=== PATIENT | female | born 1960 | race Caucasian/White ===

== ENCOUNTER 2017-06-13 22:49 | Inpatient (IN) | payer MEDICARE, MEDICAID ==
[2017-06-13 23:43] LABS: #Basophils 0.1 thou/uL (0.0-0.2); #Eosinphils 0.3 thou/uL (0.0-0.7); #Lymphocytes 3.2 thou/uL (1.20-3.40); #Monocytes 0.5 thou/uL (0.11-0.59); #Neutrophils 5.6 thou/uL (1.40-6.50); %Basophils 0.7 % (0.0-1.0); %Eosinophils 3.6 % (0.0-10.0); %Lymphocytes 33.2 % (21.0-51.0); %Monocytes 4.8 % (0.0-10.0); Hematocrit 43.8 % (36.0-47.0); Mean Platelet Volume 6.9 fL (7.4-10.4); Red Blood Cell (RBC) Count 4.43 mill/uL (4.20-5.40); White Blood Cell (WBC) Count 9.7 thou/uL (4.8-10.8)
[2017-06-13 23:44] LABS: Bilirubin Negative (Negative); Blood, Urine Negative (Negative); Glucose, Urine (Dipstick) Negative (Negative); Ketone, Urine Negative (Negative); Nitrite Positive (Negative); Protein, Urine (Dipstick) Negative (Neg-Trace)
[2017-06-13 23:47] LABS: Bacteria/HPF 2+ HPF (None Seen); Hyaline Casts/LPF 0-3 HYALINE CAST LPF (0-3 Hyaline); RBC/HPF 0-3 HPF (0-3); Squamous Epithelial 0-3 HPF (0-3)
[2017-06-13 23:54] LABS: Amphetamine Not Detected (NotDetected); Methadone Not Detected (NotDetected); Methamphetamine Not Detected (NotDetected)
[2017-06-13 23:57] LABS: PTT 35.2 SEC (22.9-36.1); Prothrombin Time 13.2 SEC (12.0-14.7)
[2017-06-14 00:06] LABS: ALT (SGPT) 19 U/L (8-55); AST (SGOT) 29 U/L (5-34); Alkaline Phosphatase 86 U/L (40-150); Anion Gap 16 mmol/L (10-20); BUN (Urea Nitrogen) 7 mg/dL (9.8-20.1); Bilirubin, Total 0.8 mg/dL (0.2-1.2); Calc. Creatinine Clearance 0 mL/min (70-130); Calcium 9.1 mg/dL (7.8-10.44); Carbon Dioxide 22 mmol/L (22-29); Chloride 90 mmol/L (98-107); Estimated GFR-MDRD Greater than 90; Globulin 3.6 g/dL (2.4-3.5); Lipase 54 U/L (8-78); Protein, Total 7.5 g/dL (6.0-8.3)
[2017-06-14 01:13] LABS: Troponin I Less than 0.010 ng/mL (< 0.028)
[2017-06-14] MEDS ORDERED: Ondansetron HCl/PF 4 MG/2 ML Vial IVP PRN (01:57)
[2017-06-14] MEDS ORDERED: Acetaminophen 325 MG TAB PO PRN (01:57)
[2017-06-14] MEDS ORDERED: Sodium Chloride 0.9% 1,000 ML IV SCH ×2 (01:57→02:17)
[2017-06-14] MEDS ORDERED: Ondansetron ODT 4 MG TAB SL PRN (01:57)
[2017-06-14] MEDS ORDERED: Lorazepam 2 MG/ML VIAL SLOW IVP PRN (02:17)
[2017-06-14 02:23] VITALS: BMI 30.7
[2017-06-14] MEDS ORDERED: cefTRIAXone\\ROCEPHIN 1 GM, Syringe 0.4 ML in Sterile Water 9.6 ML SLOW IVP SCH (03:00)
[2017-06-14] MEDS: Sodium Chloride 0.9% 1,000 ML IV SCH ×3 (04:03→23:52)
[2017-06-14 04:23] LABS: Sodium, Urine 79 mmol/L (Not Available)
[2017-06-14 05:01] LABS: #Basophils 0.1 thou/uL (0.0-0.2); #Eosinphils 0.3 thou/uL (0.0-0.7); #Lymphocytes 3.2 thou/uL (1.20-3.40); #Monocytes 0.4 thou/uL (0.11-0.59); #Neutrophils 3.8 thou/uL (1.40-6.50); %Basophils 0.9 % (0.0-1.0); %Eosinophils 4.1 % (0.0-10.0); %Lymphocytes 41.4 % (21.0-51.0); %Monocytes 5.4 % (0.0-10.0); Hematocrit 40.9 % (36.0-47.0); Mean Platelet Volume 6.2 fL (7.4-10.4); Red Blood Cell (RBC) Count 4.14 mill/uL (4.20-5.40); White Blood Cell (WBC) Count 7.8 thou/uL (4.8-10.8)
[2017-06-14 05:12] LABS: Osmolality, Urine 324 mOsm/kg (300-900)
[2017-06-14 05:27] LABS: Troponin I Less than 0.010 ng/mL (< 0.028)
[2017-06-14 05:30] LABS: Anion Gap 11 mmol/L (10-20); BUN (Urea Nitrogen) 7 mg/dL (9.8-20.1); Calc. Creatinine Clearance 180 mL/min (70-130); Calcium 8.8 mg/dL (7.8-10.44); Carbon Dioxide 24 mmol/L (22-29); Chloride 94 mmol/L (98-107); Estimated GFR-MDRD Greater than 90; Magnesium 1.7 mg/dL (1.6-2.6)
[2017-06-14] MEDS ORDERED: Cosyntropin 250 MCG VIAL SLOW IVP SCH (07:00)
--- NOTE | 2017-06-14 07:02 | CT ---
CT HEAD NONCONTRAST: Date: 06/13/17 HISTORY: Fall. Head injury. FINDINGS: There is no evidence of acute intracranial hemorrhage or infarct. The ventricles appear normal in si ze, shape, and position. There is no mass effect or shift of midline structures. Visualized paranasa l sinuses remain well aerated. IMPRESSION: No acute intracranial abnormalities are demonstrated. POS: [facility]
--- NOTE | 2017-06-14 07:03 | CT ---
CT CERVICAL SPINE NONCONTRAST: Date: 06/13/17 HISTORY: Fall. Neck injury. FINDINGS: Vertebral body height and alignment are maintained. Cervicothoracic junction is intact. No acute fra cture or dislocation are apparent. IMPRESSION: No acute osseous abnormalities are demonstrated. POS: [facility]
--- NOTE | 2017-06-14 07:13 | HP-2 ---
CODE STATUS: FULL. PRIMARY CARE PHYSICIAN: [facility] - Dr. Blum ATTENDING: Dr. Deepak George. RESIDENT: Bony Hernandez M.D. HISTORIAN: The senior benefits manager [facility] the [facility] (did not witness event). CHIEF COMPLAINT: Witnessed fall. HISTORY OF PRESENT ILLNESS: Lillian Salazar is a 56-year-old female with past medical history of se izure disorder, moderate IDD, hypertension, hypothyroidism, bipolar 1 with psychosis. History was o btained over the phone with group chief operator who did not witness event. She stated that the patie nt came out of her room and ran towards another employee, before she made it to them she lost consci ousness, fell down and hit her head. She states that the employee did not notice any seizure activi ty and did not notice any bowel or bladder incontinence. The patient states that she does not remem anayeli this episode; however, she is not a great historian. She states only remembering waking up in [facility]. Her only complaint is mild abdominal pain. PAST MEDICAL HISTORY: 1. Hypertension. 2. Hypothyroidism. 3. Insomnia. 4. Anxiety. 5. Anemia. 6. Moderate IDD. 7. Bipolar 1 depression with psychosis. 8. Hepatitis C, successfully treated. PAST SURGICAL HISTORY: Hysterectomy. ALLERGIES: 1. ACETAMINOPHEN. 2. PENICILLIN. MEDICATIONS: 1. Keppra 1000 mg p.o. b.i.d. 2. BuSpar 30 mg p.o. b.i.d. 3. Ambien 10 mg p.o. daily. 4. Geodon 60 mg 2 tabs p.o. b.i.d. 5. Trazodone 100 mg p.o. at bedtime. 6. Synthroid 100 mcg 1 p.o. daily. 7. Flonase 1 spray each nostril daily. 8. Ativan 1 mg daily. 9. MiraLax 17 mg daily. 10. Prazosin 2 mg p.o. at bedtime. 11. Seroquel 100 mg 1 p.o. at bedtime. 12. Trileptal 600 mg b.i.d. 13. Tylenol. 14. Benzocaine. FAMILY HISTORY: Unable to obtain as the patient was not a great historian. REVIEW OF SYSTEMS: Unable to obtain a full review of systems, although patient did express that she did have some abdominal pain. PHYSICAL EXAMINATION: VITAL SIGNS: Blood pressure 144/83, pulse 77, respirations 14, T-max 97.6, pulse ox 98% on room air . Current weight was 87 kilograms. GENERAL: The patient was sonorous during exam, but she was alert and oriented x3. She repeatedly f ell asleep during the exam and really not able to cooperate with questions or physical exam. EYES: Pupils equal, round, reactive to light and accommodation. Conjunctivae within normal limits. ENT: Tympanic membranes pearly [place]field without erythema or bulging. Nasal mucosa and oropharynx withi n normal limits. NECK: Supple, without lymphadenopathy or thyromegaly. CARDIOVASCULAR: Regular rate and rhythm. No murmurs or gallops. Radial pulses and pedal pulses eq ual. RESPIRATORY: Normal effort, no retractions. LUNGS: Clear to auscultation bilaterally. SKIN: Warm and dry without cyanosis or lesions. ABDOMEN: Soft, slight tenderness to palpation over the suprapubic region. Bowel sounds x4. No mas ses or distention. EXTREMITIES: No clubbing, cyanosis or edema. MUSCULOSKELETAL: Unable to perform because the patient was not cooperative. NEURO: Unable to perform because the patient was not cooperative. PSYCH: Unable to perform because the patient was not cooperative. LABORATORY DATA: White blood cell count 9.7, hemoglobin 15.5, hematocrit 43.8, platelets 196. Sodi um 124, potassium 3.8, chloride 90, bicarbonate 22, BUN 7, creatinine 0.67, glucose 97, calcium 91, total protein 7.5, albumin 3.6, total bilirubin 0.8, AST 29, ALT 21, alkaline phosphatase 86. Prola ctin 43, PT 3.2, PTT 35.2, INR 1.0. UA was positive for trace leukocytes, nitrites, 0-3 red blood c ells, 4-6 white blood cells and 2+ bacteria. UDS was positive for benzos. EKG showed first degree AV block. ASSESSMENT AND PLAN: Lillian Salazar is a 56-year-old female who presents status post a witnessed f all. 1. Syncopal episode versus seizure. Admit to tele. Prolactin was elevated, but no seizure activit y seen by witness. EKG showed first degree AV block. P.r.n. Ativan for seizure. Start home Keppr a, q.4 hour neuro checks, trend troponins, check UDS, TSH, blood cultures. Seizure precautions. 2. Status post fall, see above. 3. Urinary tract infection, abdominal pain. UA had 2+ bacteria, positive white blood cells and nit rites. Ceftriaxone given in the ED, start Macrobid. Check urine culture. 4. Hypertension. P.r.n., hydralazine, start home meds when it is confirmed that the patient can to lerate p.o. 5. Moderate insulin-dependent diabetes, unable to determine if the patient is at baseline mental st atus at this time. 6. Bipolar I, depression with psychosis. Consider restarting all home meds in a.m. once it is conf irmed that she can tolerate p.o. 7. Hyponatremia. Urine studies, continue to monitor. 8. Code status. Full. DISPOSITION/LENGTH OF HOSPITAL STAY: Two to 3 days. Symptomatic medications will be provided. History and physical exam as well as management discussed with Dr. George.
[2017-06-14 07:15] LABS: Troponin I Less than 0.010 ng/mL (< 0.028)
[2017-06-14] MEDS: Nitrofurantoin Monohyd/M-Cryst 100 MG CAP PO SCH ×2 (08:10→21:27)
--- NOTE | 2017-06-14 08:14 | RAD ---
CHEST ONE VIEW: History: 56-year-old female with injury following a fall. FINDINGS: Monitor leads overlie the chest. Heart size is within normal limits. The lungs are clear. IMPRESSION: No acute intrathoracic disease. No evidence for pneumonia. No pneumothorax or pleural effusion. POS: [facility]
--- NOTE | 2017-06-14 08:43 | RAD ---
FRONTAL RADIOGRAPH PELVIS: Date: 06-14-17 Comparison: None. History: Fall, trauma, pain. FINDINGS: There is no widening of the sacroiliac joint to the pubic symphysis. The pelvic ring and femoral hea ds project normally over the respective acetabulum. There is no displaced fracture noted. IMPRESSION: No displaced fracture seen. POS: [facility]
[2017-06-14] MEDS ORDERED: levETIRAcetam In NaCl (Iso-Os) 1,000 MG in Premix Bag 1 BAG IVPB SCH ×2 (09:00)
--- NOTE | 2017-06-14 11:21 | CON ---
DATE OF CONSULTATION: 06/14/2017 HISTORY OF PRESENT ILLNESS: Ms. Salazar is a 56-year-old white female with known history of bipolar disorder and admitted due to fall. Initial evaluation showed no significant fracture with this pat ient. We are now being consulted for her hyponatremia. REVIEW OF SYSTEMS: No chest pain, denies any syncopal episode, no nausea, no vomiting, no diarrhea, no constipation, no abdominal pain, no headache, no sore throat, no fever or chills. Appetite and energy level is fair. Occasional joint pains. No new skin rash, no hematochezia, no melena, no hem atemesis, no gross hematuria, no dysuria, no sore throat, no diplopia. No decreased hearing. No na puma discharge. HOME MEDICATIONS: Include Keppra 1000 mg p.o. b.i.d., BuSpar 30 mg p.o. b.i.d., Ambien 10 mg daily, Geodon 60 mg 2 tabs p.o. b.i.d., trazodone 100 mg at bedtime, Synthroid 100 mcg daily, Flonase p.r. n., Ativan 1 mg daily, prazosin 2 mg at bedtime, Seroquel 100 mg p.o. at bedtime, and Trileptal 600 mg p.o. b.i.d. FAMILY HISTORY: No family history of ESRD. PAST MEDICAL HISTORY: Hypertension, hypothyroidism, insomnia, anxiety, anemia, bipolar disorder wit h depression and psychosis, chronic hepatitis C, treated. PAST SURGICAL HISTORY: 1. Status post hysterectomy. 2. Status post exploratory laparotomy. 3. Status post cholecystectomy. 4. Status post tonsillectomy. 5. Status post back surgery. SOCIAL HISTORY: The patient lives in [place]. She lives with a senior living. She has a total of 5 chi ldren, stills smokes half a pack a day. Alcohol none. Education 8th grade. Sedentary lifestyle. ALLERGIES: PENICILLIN and TYLENOL. TRAUMA: Recently status post fall. IMMUNIZATIONS: Up to date. HOSPITALIZATIONS: Please see past medical history. PHYSICAL EXAMINATION: VITAL SIGNS: Blood pressure is 120/72, heart rate 72, respiratory rate 20, temperature 98.6, pulse oximetry 96%. GENERAL: Noted to be awake, supine, comfortable, not in overt distress. SKIN: Adequate turgor. HEENT: She has pinkish conjunctivae, anicteric sclerae. NECK: No neck mass, no carotid bruits, no JVD. CHEST: No deformities. LUNGS: Clear breath sounds. HEART: Normal sinus rhythm. No murmur, no gallops or rubs. ABDOMEN: Globular, soft, nontender, no masses. EXTREMITIES: No edema, no deformities. NEUROLOGIC: Awake, oriented to 3 spheres. Moving all extremities. No tremors, no asterixis, no at axia. LABORATORY DATA: Laboratories of 06/14/2017, sodium 125, potassium 3.5, chloride 94, carbon dioxide 24, BUN 7, creatinine 0.51, calcium 8.8, magnesium 1.7. On 06/13/2017, TSH 4.9. On 06/13/2017, so dium was 124. On 10/06/2016, sodium was 132. Urinalysis shows specific gravity on 1.011, rbc 0-3, wbc 3-6, no protein. Urine osmolality 324, uri ne sodium 79. ASSESSMENT AND PLAN: Hyponatremia - This is most likely drug-induced from her psychiatric medicatio ns. The hancock here is to place her on a free water restriction - 1 L per day. Sodium chloride 650 mg tablet 1 tab b.i.d. will be started. Also, I agree with empiric normal saline since the possibilit y of a superimposed hypovolemic hyponatremia remains with this patient. I agree with gentle normal saline. No indication for any hypertonic saline since the patient is mentating well. I tried to ch juan c a uric acid with this patient to see if there would be evidence of dilutional process making the uric acid low. Overall, agree with current management. No indication for any hypertonic saline and recheck base me t in a.m.
[2017-06-14 11:28] LABS: Anion Gap 14 mmol/L (10-20); BUN (Urea Nitrogen) 6 mg/dL (9.8-20.1); Calc. Creatinine Clearance 153 mL/min (70-130); Carbon Dioxide 21 mmol/L (22-29); Chloride 96 mmol/L (98-107); Estimated GFR-MDRD Greater than 90
--- NOTE | 2017-06-14 11:58 | PDOC.EVN ---
Attending Addendum - Attending Addendum I personally evaluated the patient and discussed the management with Dr. Hernandez. I agree with the History, Examination, Assessment and Plan documented above with any addition or exceptions noted below. Patient admitted after episode of syncope versus seizure (less likely) and labs showing hyponatremia. He has a low serum osmol and inappropriately concentrated urine and elevated urine sodium. This is likely a result of her psychiatric medications, probably Trileptal. We will check level to ensure not toxic and will fluid restrict for presumed SIADH. She has stim test ordered to evaluate adrenal insufficiency, though labs are not consistent with that diagnosis. Trend levels through the day, and may need to decrease or withold Trileptal if it does not increase appropriately. Renal has seen patient and agrees with our management.
[2017-06-14] MEDS: Nicotine 14 MG PATCH TD SCH (12:21)
[2017-06-14 18:22] LABS: Anion Gap 11 mmol/L (10-20); BUN (Urea Nitrogen) 9 mg/dL (9.8-20.1); Calc. Creatinine Clearance 141 mL/min (70-130); Calcium 9.7 mg/dL (7.8-10.44); Carbon Dioxide 26 mmol/L (22-29); Chloride 98 mmol/L (98-107); Estimated GFR-MDRD Greater than 90
[2017-06-14] MEDS: Mometasone Furoate 120 PUFF 220 MCG INH SCH (19:13)
[2017-06-14] MEDS: Ibuprofen 600 MG TAB PO PRN (19:23)
[2017-06-14] MEDS: Sodium Bicarbonate Tab 325 MG TAB PO SCH (21:24)
[2017-06-14] MEDS: traZODone HCl 50 MG TAB PO SCH (21:25)
[2017-06-14] MEDS: levETIRAcetam 500 MG TAB PO SCH (21:26)
[2017-06-14] MEDS: busPIRone HCl 10 MG TAB PO SCH (21:26)
[2017-06-14] MEDS: OXcarbazepine 300 MG TAB PO SCH (21:27)
[2017-06-14] MEDS: Zolpidem Tartrate 5 MG TAB PO SCH (21:28)
[2017-06-15 05:09] LABS: #Basophils 0.1 thou/uL (0.0-0.2); #Eosinphils 0.3 thou/uL (0.0-0.7); #Lymphocytes 3.3 thou/uL (1.20-3.40); #Monocytes 0.4 thou/uL (0.11-0.59); #Neutrophils 2.9 thou/uL (1.40-6.50); %Eosinophils 4.7 % (0.0-10.0); %Monocytes 6.3 % (0.0-10.0); Hematocrit 42.2 % (36.0-47.0); Mean Platelet Volume 6.7 fL (7.4-10.4); Red Blood Cell (RBC) Count 4.22 mill/uL (4.20-5.40)
[2017-06-15 05:31] LABS: Anion Gap 11 mmol/L (10-20); BUN (Urea Nitrogen) 10 mg/dL (9.8-20.1); Calc. Creatinine Clearance 148 mL/min (70-130); Calcium 9.4 mg/dL (7.8-10.44); Carbon Dioxide 24 mmol/L (22-29); Chloride 99 mmol/L (98-107); Estimated GFR-MDRD Greater than 90
--- NOTE | 2017-06-15 08:26 | PDOC.FM ---
- Subjective Subjective: No acute events overnight. Pt reports she still feels dizzy when she stands up, otherwise no complaints. No events on hrt monitor overnight. - Objective Vital Signs & Weight: Vital Signs (12 hours) Temp Pulse Resp BP BP BP BP 06/15/17 07:59 98.2 F 72 14 06/15/17 07:44 72 151/79 H 06/15/17 07:42 67 165/87 H 06/15/17 07:40 98.2 F 69 16 117/71 143/89 H 06/15/17 04:00 98.0 F 85 20 137/80 06/15/17 00:00 66 148/77 H Pulse Ox 06/15/17 07:59 93 L 06/15/17 07:44 06/15/17 07:42 06/15/17 07:40 93 L 06/15/17 04:00 94 L 06/15/17 00:00 Weight Weight 94.489 kg I&O: 06/14/17 06/15/17 06/16/17 06:59 06:59 06:59 Intake Total 1260 1665 Output Total 1100 Balance 160 1665 Result Diagrams: 06/15/17 04:10 06/15/17 04:10 <Frank Galindo - Last Filed: 06/15/17 08:33> - Objective Vital Signs & Weight: Vital Signs (12 hours) Temp Pulse Resp BP BP BP BP 06/15/17 12:00 98.1 F 68 16 118/74 06/15/17 07:59 98.2 F 72 14 06/15/17 07:44 72 151/79 H 06/15/17 07:42 67 165/87 H 06/15/17 07:40 98.2 F 69 16 117/71 143/89 H 06/15/17 04:00 98.0 F 85 20 137/80 Pulse Ox 06/15/17 12:00 92 L 06/15/17 07:59 93 L 06/15/17 07:44 06/15/17 07:42 06/15/17 07:40 93 L 06/15/17 04:00 94 L Weight Weight 94.489 kg I&O: 06/14/17 06/15/17 06/16/17 06:59 06:59 06:59 Intake Total 1260 1665 Output Total 1100 Balance 160 1665 Result Diagrams: 06/15/17 04:10 06/15/17 04:10 <Deepak George - Last Filed: 06/15/17 15:23> Phys Exam - Physical Examination Constitutional: NAD HEENT: PERRLA, moist MMs, sclera anicteric Neck: no nodes, no JVD Respiratory: no wheezing, no rales, no rhonchi, clear to auscultation bilateral Cardiovascular: RRR, no significant murmur, no rub Gastrointestinal: soft, non-tender, no distention, positive bowel sounds Musculoskeletal: no edema, pulses present Neurological: non-focal, normal sensation, moves all 4 limbs <Frank Galindo - Last Filed: 06/15/17 08:33> Dx/Plan (1) Hyponatremia with decreased serum osmolality Code(s): E87.1 - HYPO-OSMOLALITY AND HYPONATREMIA Status: Acute (2) UTI (urinary tract infection) Status: Acute - Plan Plan: Hyponatremia resolving, continue fluid restiction dc fluids monitor Is/Os pt maynard positive ros however vitals are stable and troponins are negative nephrology consulted appreciate recs oxcarbazepine levels pending orthostatics normal and ACTH stim test normal <Frank Galindo - Last Filed: 06/15/17 08:33> Attending Addendum - Attending Addendum I personally evaluated the patient and discussed the management with Dr. Galindo. I agree with the History, Examination, Assessment and Plan documented above with any addition or exceptions noted below. Patient with improvement in symptoms and Na level with fluid restriction. Her issue is likely being caused by Trileptal, and we will decrease that dose. Continue fluid restriction and will discuss with outpatient Psychiatry about ways to manage her meds. She otherwise feels well. Trileptal level pending. Possible d/c home tomorrow if doing well. <Deepak George - Last Filed: 06/15/17 15:23>
[2017-06-15] MEDS ORDERED: hydrALAZINE 20 MG/ML VIAL SLOW IVP SCH (08:30)
[2017-06-15] MEDS: OXcarbazepine 300 MG TAB PO SCH ×2 (08:42→20:35)
[2017-06-15] MEDS: Levothyroxine Sodium 150 MCG TAB PO SCH (08:42)
[2017-06-15] MEDS: Sodium Bicarbonate Tab 325 MG TAB PO SCH ×2 (08:42→20:34)
[2017-06-15] MEDS: levETIRAcetam 500 MG TAB PO SCH ×2 (08:42→20:34)
[2017-06-15] MEDS: busPIRone HCl 10 MG TAB PO SCH ×2 (08:42→20:35)
[2017-06-15] MEDS: Nitrofurantoin Monohyd/M-Cryst 100 MG CAP PO SCH ×2 (08:42→20:35)
[2017-06-15] MEDS: Lorazepam 1 MG TAB PO SCH (08:42)
[2017-06-15] MEDS: Aspirin 81 mg Enteric Coated Tablet PO SCH (08:42)
[2017-06-15] MEDS ORDERED: Prazosin HCl 1 MG CAP PO SCH (09:00)
--- NOTE | 2017-06-15 10:21 | PRG ---
DATE OF SERVICE: 06/15/2017 SUBJECTIVE: The patient is a 56-year-old white female with psychiatric problems and was seen by the Renal Service for the hyponatremia. At that time I felt that there was a component volume depletion. She was empirically given volume repletion, normal saline. Serum sodium is much improved today. S he voices no new complaints. We also placed her on a free water restriction. The patient denies any chest pain, shortness of breath. She is wanting to go home. PHYSICAL EXAMINATION: VITAL SIGNS: Blood pressure 151/79, heart rate 72, respiratory rate 14, temperature 98.2, pulse oxim etry 93%. GENERAL: Noted to be awake, alert, sitting comfortable, not in distress. SKIN: Adequate turgor. HEENT: She has pinkish conjunctivae, anicteric sclerae. NECK: No neck mass, no carotid bruits, no JVD. CHEST: No deformities. LUNGS: Clear breath sounds. HEART: Normal sinus rhythm. No murmur, no gallops, no rubs. ABDOMEN: Globular, soft, nontender, no masses. EXTREMITIES: No edema, no deformities. LABORATORY: 06/15/2017 - Reviewed. Please note serum sodium is now 130. ASSESSMENT AND PLAN: Hyponatremia - multifactorial. This is probably secondary to her psychiatric d rugs. In addition, a component of volume depletion is probably in the process, improved with gentle volume repletion and free water restriction. Continue current conservative management. There is no indication for any hypertonic saline. Overall, I agree with current management.
[2017-06-15] MEDS: Nicotine 14 MG PATCH TD SCH (13:14)
[2017-06-15] MEDS: Mometasone Furoate 120 PUFF 220 MCG INH SCH (18:14)
[2017-06-15] MEDS: Ibuprofen 600 MG TAB PO PRN (18:26)
[2017-06-15] MEDS: traZODone HCl 50 MG TAB PO SCH (20:34)
[2017-06-15] MEDS: Zolpidem Tartrate 5 MG TAB PO SCH (20:35)
[2017-06-16 06:38] LABS: Anion Gap 12 mmol/L (10-20); BUN (Urea Nitrogen) 13 mg/dL (9.8-20.1); Calc. Creatinine Clearance 152 mL/min (70-130); Carbon Dioxide 26 mmol/L (22-29); Chloride 95 mmol/L (98-107); Estimated GFR-MDRD Greater than 90
[2017-06-16] MEDS ORDERED: Sodium Chloride 0.9% 1,000 ML IV SCH ×2 (06:45→07:00)
[2017-06-16] MEDS: Lorazepam 1 MG TAB PO SCH (07:59)
[2017-06-16] MEDS: Aspirin 81 mg Enteric Coated Tablet PO SCH (07:59)
[2017-06-16] MEDS: busPIRone HCl 10 MG TAB PO SCH ×2 (07:59→20:26)
[2017-06-16] MEDS: Nitrofurantoin Monohyd/M-Cryst 100 MG CAP PO SCH ×2 (07:59→20:26)
[2017-06-16] MEDS: levETIRAcetam 500 MG TAB PO SCH ×2 (07:59→20:24)
[2017-06-16] MEDS: Levothyroxine Sodium 150 MCG TAB PO SCH (07:59)
[2017-06-16] MEDS: OXcarbazepine 300 MG TAB PO SCH ×2 (07:59→20:26)
[2017-06-16] MEDS: Sodium Bicarbonate Tab 325 MG TAB PO SCH (07:59)
--- NOTE | 2017-06-16 08:25 | PDOC.FM ---
- Subjective Subjective: Pt reports dizziness although has been ambulating throughout hospital and outside to smoke without incident. She reports she does not want to go back to her [facility] because she does not get money until Tuesday and because she does not sleep well there, although she reports she has not slept well here either. Otherwise no acute events overnight and only complains of constipation in addition to occasional dizziness. - Objective Vital Signs & Weight: Vital Signs (12 hours) Temp Pulse Resp BP Pulse Ox 06/16/17 07:33 98.3 F 62 17 134/65 91 L 06/16/17 03:38 97.9 F 63 18 123/72 91 L 06/15/17 20:35 98.2 F 65 18 92 L 06/15/17 20:33 98.2 F 65 18 142/69 H 92 L Weight Weight 92.675 kg I&O: 06/15/17 06/16/17 06/17/17 06:59 06:59 06:59 Intake Total 1665 1490 Output Total 870 Balance 1665 620 Result Diagrams: 06/15/17 04:10 06/16/17 06:09 <Frank Galindo - Last Filed: 06/16/17 08:22> - Objective Vital Signs & Weight: Vital Signs (12 hours) Temp Pulse Resp BP Pulse Ox 06/16/17 08:00 98.3 F 62 17 91 L 06/16/17 07:33 98.3 F 62 17 134/65 91 L 06/16/17 03:38 97.9 F 63 18 123/72 91 L Weight Weight 92.675 kg I&O: 06/15/17 06/16/17 06/17/17 06:59 06:59 06:59 Intake Total 1665 1490 Output Total 870 Balance 1665 620 Result Diagrams: 06/15/17 04:10 06/16/17 06:09 <Deepak George - Last Filed: 06/16/17 11:10> Phys Exam - Physical Examination Constitutional: NAD HEENT: PERRLA, moist MMs, sclera anicteric Neck: no nodes, no JVD, supple Respiratory: no wheezing, no rales, no rhonchi, clear to auscultation bilateral Cardiovascular: RRR, no significant murmur, no rub Gastrointestinal: soft, non-tender, no distention, positive bowel sounds Musculoskeletal: no edema, pulses present Neurological: non-focal, normal sensation, moves all 4 limbs <Frank Galindo - Last Filed: 06/16/17 08:22> Dx/Plan (1) Hyponatremia with decreased serum osmolality Code(s): E87.1 - HYPO-OSMOLALITY AND HYPONATREMIA Status: Acute (2) UTI (urinary tract infection) Status: Acute - Plan Plan: Na dropped to 129, we will continue gentle IVF @ 100mls/hr, recheck an afternoon BMP @ 1400 and if showing signs of improvement plan to DC home Continue macrobid for UTI Pts trileptal level is still pending, was recently on 600 BID, continue 300 BID dose for now Hyponatremia likely 2/2 psychiatric mediations and mild hypovolemia, recheck afternoon BMP after gentle IVF hydration with NS CM consult for DC planning colace for constipation <Frank Galindo - Last Filed: 06/16/17 08:22> Attending Addendum - Attending Addendum I personally evaluated the patient and discussed the management with Dr. Galindo. I agree with the History, Examination, Assessment and Plan documented above with any addition or exceptions noted below. Patient with continued hyponatremia, likely mostly due to her therapy noncompliance. She is continuing to go outside and smoke and drink coffee for which we have advised against as it does not fit her free water restrictions. 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 She also may have mild volume depletion component per Renal. Will discuss further plan of action with Dr. Brewer today. Patient is at baseline and symptomatically much improved due to her improved sodium. I would like her levels to stabilize and be >130 prior to discharge, but non compliance is complicating this. She is otherwise stable for discharge. If nephrology recommends no further treatment, patient may be discharged today with extensive counselling on fluid restriction. <Deepak George - Last Filed: 06/16/17 11:10>
[2017-06-16] MEDS: Docusate 100 MG CAP PO SCH ×2 (09:01→20:26)
[2017-06-16] MEDS ORDERED: Sodium Chloride 1 GM TAB PO SCH (11:30)
[2017-06-16] MEDS: Nicotine 14 MG PATCH TD SCH (11:31)
[2017-06-16] MEDS ORDERED: Acetaminophen 325 MG TAB PO SCH (12:15)
[2017-06-16 14:59] LABS: Anion Gap 12 mmol/L (10-20); BUN (Urea Nitrogen) 12 mg/dL (9.8-20.1); Calc. Creatinine Clearance 130 mL/min (70-130); Calcium 8.8 mg/dL (7.8-10.44); Carbon Dioxide 25 mmol/L (22-29); Chloride 95 mmol/L (98-107); Estimated GFR-MDRD 87
[2017-06-16] MEDS: Mometasone Furoate 120 PUFF 220 MCG INH SCH (18:55)
[2017-06-16] MEDS: Sodium Chloride 1 GM TAB PO SCH (20:24)
[2017-06-16] MEDS: Zolpidem Tartrate 5 MG TAB PO SCH (20:25)
[2017-06-16] MEDS: traZODone HCl 50 MG TAB PO SCH (20:26)
[2017-06-17 05:43] LABS: Anion Gap 9 mmol/L (10-20); BUN (Urea Nitrogen) 11 mg/dL (9.8-20.1); Calc. Creatinine Clearance 150 mL/min (70-130); Calcium 8.8 mg/dL (7.8-10.44); Carbon Dioxide 27 mmol/L (22-29); Chloride 99 mmol/L (98-107); Estimated GFR-MDRD Greater than 90
--- NOTE | 2017-06-17 06:47 | PDOC.FM ---
- Subjective Subjective: Complains of abdominal pain but states she thinks she's just hungry. - Objective Vital Signs & Weight: Vital Signs (12 hours) Temp Pulse Resp BP Pulse Ox 06/17/17 04:00 97.9 F 53 L 18 113/53 L 95 06/16/17 19:30 98.4 F 56 L 18 140/77 93 L Weight Weight 93.128 kg I&O: 06/15/17 06/16/17 06/17/17 06:59 06:59 06:59 Intake Total 1665 1490 1420 Output Total 870 1200 Balance 1665 620 220 Result Diagrams: 06/15/17 04:10 06/17/17 04:27 <Connie Hurtado - Last Filed: 06/17/17 11:48> - Objective Vital Signs & Weight: Vital Signs (12 hours) Temp Pulse Resp BP Pulse Ox 06/17/17 12:00 98.6 F 58 L 16 134/69 90 L 06/17/17 08:00 98.2 F 60 20 94 L 06/17/17 07:47 98.2 F 60 20 137/74 94 L 06/17/17 04:00 97.9 F 53 L 18 113/53 L 95 Weight Weight 93.128 kg I&O: 06/16/17 06/17/17 06/18/17 06:59 06:59 06:59 Intake Total 1490 1420 Output Total 870 1200 Balance 620 220 Result Diagrams: 06/15/17 04:10 06/17/17 04:27 <Deepak George - Last Filed: 06/17/17 14:36> Phys Exam - Physical Examination Constitutional: NAD HEENT: PERRLA, moist MMs, sclera anicteric Respiratory: no wheezing, no rales, no rhonchi, clear to auscultation bilateral Cardiovascular: RRR, no significant murmur Gastrointestinal: soft, no distention, positive bowel sounds suprapubic tenderness Musculoskeletal: no edema, pulses present Psychiatric: normal affect, A&O x 3 <Connie Hurtado - Last Filed: 06/17/17 11:48> Dx/Plan - Plan Plan: 56 yo f presents s/p fall, admitted for a syncopal episode, with chronic hyponatremia and a UTI. Syncope, resolved Chronic Hyponatremia, improved to 131 2/2 trileptal most likely NaCl 1g BID PO UTI, uncomplicated Macrobid X7 days Bipolar d/o, controlled trilepta level pending Continue 300mg BID recommend outpatient follow-up and dc of trileptal in outpatient setting because the hyponatremia is likely d/t the trileptal. CM-pt stays at [facility] [place] [facility] and will be discharged there today. <Connie Hurtado - Last Filed: 06/17/17 11:48> Attending Addendum - Attending Addendum I personally evaluated the patient and discussed the management with Dr. Nikki Estrada. I agree with the History, Examination, Assessment and Plan documented above with any addition or exceptions noted below. Patient with mild improvement in sodium level after further fluid restriction and not allowing her to leave room for coffee. I expect that she has been ignoring the fluid restriction orders as evidenced by her multiple cups of coffee from the cafe each day. Dr. Brewer agrees with discharge with Salt tabs over the next few weeks and he will see in clinic. She should also have augmentation of psych meds in outpatient setting as this is contributing to her sodium levels being low. She is feeling well from this standpoint and will be discharged. I do expect patient to continue to have issues with hyponatremia as she is not adhering to multiple conversations about fluid restriction with her. <Deepak George - Last Filed: 06/17/17 14:36>
[2017-06-17] MEDS: levETIRAcetam 500 MG TAB PO SCH (09:05)
[2017-06-17] MEDS: Sodium Chloride 1 GM TAB PO SCH (09:05)
[2017-06-17] MEDS: Docusate 100 MG CAP PO SCH (09:05)
[2017-06-17] MEDS: Nitrofurantoin Monohyd/M-Cryst 100 MG CAP PO SCH (09:05)
[2017-06-17] MEDS: OXcarbazepine 300 MG TAB PO SCH (09:05)
[2017-06-17] MEDS: busPIRone HCl 10 MG TAB PO SCH (09:06)
[2017-06-17] MEDS: Lorazepam 1 MG TAB PO SCH (09:06)
[2017-06-17] MEDS: Levothyroxine Sodium 150 MCG TAB PO SCH (09:06)
[2017-06-17] MEDS: Aspirin 81 mg Enteric Coated Tablet PO SCH (09:06)
[2017-06-17] MEDS: Nicotine 14 MG PATCH TD SCH (11:19)
[2017-06-17 12:03] VITALS: BP 134/69; TEMP 98.6
--- NOTE | 2017-06-20 08:56 | DIS-2 ---
DATE OF ADMISSION: 06/14/2017 DATE OF DISCHARGE: 06/17/2017 ADMITTING RESIDENT: Bony Hernandez MD ADMITTING ATTENDING: Deepak George MD DISCHARGE RESIDENT: Connie Hurtado MD DISCHARGE ATTENDING: Deepak George MD PROCEDURES: 1. Head CT, which showed no acute intracranial abnormalities, no evidence of an acute intracranial hemorrhage or infarct. 2. Cervical spine CT: No acute osseous abnormalities demonstrated. Vertebral body height and alignment maintained. No acute fracture or dislocation apparent. 3. Chest x-ray: No acute intrathoracic disease. No evidence for pneumonia, no pneumothorax or pleural effusion. 4. Pelvic x-ray: No displaced fracture seen. No widening of the sacroiliac joints to the pubic symphysis. CONSULTATIONS: Nephrology, Dr. Yobani Brewer. PRIMARY DIAGNOSES: 1. Syncope, not otherwise specified. 2. Chronic hyponatremia. 3. Urinary tract infection, uncomplicated. SECONDARY DIAGNOSIS: Bipolar disorder. HISTORY OF PRESENT ILLNESS AND HOSPITAL COURSE: Lillian Salazar is a 56-year- old female with past medical history of seizure disorder, hypertension, hypothyroidism, bipolar 1 with psychosis, presented status post fall. Initial history was obtained over the phone with a group home worker. The patient came out of her room ran towards another employee and before she made it to them , fell down and lost consciousness and hit her head. There did not seem to be any seizure activity. They did not notice any bowel or bladder incontinence. The patient does not remember the episode. 1. She was admitted for workup of syncopal episode versus seizure. She was monitored on tele. Prolactin was elevated, but no seizure activity was seen by the witness. The initial EKG did show first-degree AV block which could have contributed to the cause of her fall. Troponins were trended. TSH and blood cultures were drawn. On initial labs, the patient was found to be hyponatremic. The patient was also started on home medication of Keppra and was provided with neuro checks. She had a low serum osmolality and inappropriately concentrated urine with elevated urine sodium, it is likely secondary to her psychiatric medications probably Trileptal. The patient was fluid restricted with presumed SIADH. Patient had a stim test ordered to evaluate for adrenal insufficiency; however, the labs do not suggest that diagnosis. Patient's troponins were negative. The syncopal episode is likely related to her chronic hyponatremia and volume depletion. In addition, during her hospital course, she endorsed some dizziness, but hospital day #2, was able to ambulate without dizziness. The patient was noted to be smoking outside. She was also noted to be drinking coffee, which is not in adherence with her free water restrictions. She was counseled on adhering to a fluid-restricted diet. She did not have any more syncopal episodes during her hospital stay. Her chronic hyponatremia improved to 131 on hospital day #3, and it seemed that the hyponatremia was and is still related to her Trileptal. She was started on sodium chloride 1 gram 2 times by mouth and was cleared for discharge with recommendations of adhering to a fluid-restricted diet. All that being said, it seems that the syncope was related to a combination of things: likely related to volume depletion, chronic hyponatremia, and possibly pt's first degree AV block. And the Trileptal may be the etiology behind her chronic hyponatremia. We recommend that she follow-up in the outpatient setting with psychiatry to discuss a change in medication to mange her bipolar d/o. 2. Urinary tract infection, uncomplicated. The patient was treated with Macrobid for 7-day course. 3. Bipolar disorder was controlled on Trileptal 300 mg b.i.d. She did not have any symptoms of acute artemio or depression; however, the Trileptal may be the etiology of the chronic hyponatremia as well as the volume depletion causing the syncopal episode. The patient was continued on this medication. Recommended close follow up with Psychiatry in the outpatient setting. DISPOSITION: Stable. DISCHARGE INSTRUCTIONS: [facility] It was recommended that she have close followup with her primary care physician and Dr. Brewer, her packing room inspector. It was recommended the patient adhere to a renal diet and heart healthy diet. Activity as tolerated. Recommended follow up with PCP in 3-7 days. BRUCED
--- NOTE | 2017-06-22 18:12 | PQF ---
MEREDITH FISHER BRANDON [id number] [id number] [id number] CLINICAL DOCUMENTATION CLARIFICATION FORM: POST DISCHARGE DATE: 06/22/17 ATTN: JOHNATHAN HARRY Please exercise your independent, professional judgment in responding to the clarification form. Clinical indicators are provided on the bottom of this form for your review Please check appropriate box(s): Please state whether SIADH or hyponatremia [ ] Hyponatremia please specify etiology, if known [ ] Hyponatremia due to SIADH (Syndrome of Inappropriate Secretion of Antidiuretic Hormone) [ ] Other diagnosis [ ] Unable to determine In addition, please specify: Present on Admission (POA): [ ] Yes [ ] No [ ] Unable to determine CLINICAL INDICATORS - SIGNS / SYMPTOMS / LABS Na level <132. (Please cite specific Na level.) Decreased LOC, malaise, BRISENO, Coma / Seizures Dr George notes "presumed SIADH" on H & P addendum. He also notes on attending addendum to PNs "Trilpetal induced SIADH". RISK FACTORS Renal failure Polydipsia Dehydration Lung cancer Diabetes Insipidus TREATMENTS: IV fluids Series of electrolyte labs Fluid restriction Physician Signature/Date ___ Hyponatremia, but I did not subsequently take care of the patient after admission, please route to Dr. George to make sure. [facility]
--- NOTE | 2017-06-28 09:38 | PQF ---
MEREDITH FISHER JASON MD *r* [id number] [facility]-256 [id number] CLINICAL DOCUMENTATION CLARIFICATION FORM: POST DISCHARGE DATE: 06/28/17 ATTN: Dr. Deepak Geroge Please exercise your independent, professional judgment in responding to the clarification form. Clinical indicators are provided on the bottom of this form for your review Please check appropriate box(s): [ ] Hyponatremia please specify etiology, if known [ X ] Hyponatremia due to SIADH (Syndrome of Inappropriate Secretion of Antidiuretic Hormone) [ ] Other diagnosis [ ] Unable to determine In addition, please specify: Present on Admission (POA): [ X ] Yes [ ] No [ ] Unable to determine CLINICAL INDICATORS - SIGNS / SYMPTOMS / LABS "presumed SIADH" on H & P addendum, also notes on attending addendum to PNs "Trilpetal induced SIADH". RISK FACTORS Renal failure Polydipsia Dehydration Lung cancer Diabetes Insipidus TREATMENTS: IV fluids Series of electrolyte labs Fluid restriction (This form is maintained as a part of the permanent medical record) 2014 [employer] All Rights Reserved Racquel [email or web address] [phone] TOYA
--- NOTE | 2017-07-23 14:06 | EKG ---
Test Reason : Blood Pressure : / mmHG Vent. Rate : 081 BPM Atrial Rate : 081 BPM P-R Int : 234 ms QRS Dur : 078 ms QT Int : 372 ms P-R-T Axes : 040 041 058 degrees QTc Int : 432 ms Sinus rhythm with 1st degree A-V block Otherwise normal ECG Confirmed by MEREDITH DOMINGO DO ([id number]), medical editor KATIE CALDERÓN ([id number]) on 07/23/2017 2:05:34 PM Referred By: Confirmed By:MEREDITH DOMINGO DO
== END 2017-06-17 14:50 | disposition home or self-care (01) | DRG 643 ==
LOC: ERS 22:49 → ERHOLD 06-14 00:20 → IMCU/EMU 06-14 02:13 → 2NO 06-14 17:31
PROVIDERS: ADMIT Emergency Medicine; ATTEND Emergency Medicine
DX: E22.2 Syndrome of inappropriate secretion of antidiuretic hormone (principal); G92 Toxic encephalopathy; N39.0 Urinary tract infection, site not specified; D64.9 Anemia, unspecified; I10 Essential (primary) hypertension; R55 Syncope and collapse; G40.909 Epilepsy, unspecified, not intractable, without status epilepticus; E03.9 Hypothyroidism, unspecified; F31.9 Bipolar disorder, unspecified; F29 Unspecified psychosis not due to a substance or known physiological condition; W18.30XA Fall on same level, unspecified, initial encounter; G47.00 Insomnia, unspecified; F41.9 Anxiety disorder, unspecified; Z86.19 Personal history of other infectious and parasitic diseases; Z88.6 Allergy status to analgesic agent; Z88.0 Allergy status to penicillin; F17.210 Nicotine dependence, cigarettes, uncomplicated; T50.995A Adverse effect of other drugs, medicaments and biological substances, initial encounter; K59.00 Constipation, unspecified; Z91.19 Patient's noncompliance with other medical treatment and regimen; F71 Moderate intellectual disabilities
CPT/HCPCS: 36415; 36416; 51701; 70450; 71010; 72125; 72170; 80048; 80053; 80183; 80306; 80400; 81003; 81015; 82553; 83690; 83735; 83930; 83935; 84146; 84300; 84443; 84484; 84550; 85025; 85610; 85730; 87040; 87077; 87086; 87186; 93005; 94664; 96361; 96374; 99406; A4216; A4353; J0696; J0834; J1953

== ENCOUNTER 2017-07-02 22:21 | Emergency (ER) | payer MEDICARE, MEDICAID ==
[2017-07-02 22:45] LABS: #Eosinphils 0.4 thou/uL (0.0-0.7); #Lymphocytes 2.6 thou/uL (1.20-3.40); #Monocytes 0.4 thou/uL (0.11-0.59); #Neutrophils 4.1 thou/uL (1.40-6.50); %Basophils 0.6 % (0.0-1.0); %Eosinophils 4.9 % (0.0-10.0); %Lymphocytes 34.2 % (21.0-51.0); %Monocytes 5.3 % (0.0-10.0); Hematocrit 40.3 % (36.0-47.0); Mean Platelet Volume 6.8 fL (7.4-10.4); Red Blood Cell (RBC) Count 4.08 mill/uL (4.20-5.40); White Blood Cell (WBC) Count 7.5 thou/uL (4.8-10.8)
[2017-07-02 23:07] LABS: Acetaminophen Less than 6.0 mcg/mL (10.0-30.0); Salicylate Less than 8.0 mg/dL (15.0-30.0)
[2017-07-02 23:08] LABS: ALT (SGPT) 23 U/L (8-55); AST (SGOT) 28 U/L (5-34); Alkaline Phosphatase 84 U/L (40-150); Anion Gap 10 mmol/L (10-20); BUN (Urea Nitrogen) 8 mg/dL (9.8-20.1); Bilirubin, Total 0.4 mg/dL (0.2-1.2); Calc. Creatinine Clearance 0 mL/min (70-130); Calcium 9.3 mg/dL (7.8-10.44); Carbon Dioxide 27 mmol/L (22-29); Chloride 95 mmol/L (98-107); Estimated GFR-MDRD Greater than 90; Protein, Total 6.6 g/dL (6.0-8.3)
--- NOTE | 2017-07-02 23:13 | CT ---
CT OF THE BRAIN WITHOUT CONTRAST 07/02/17 INDICATION: Syncope. COMPARISON: Prior exam dated 06/13/17. FINDINGS: The exam is compared to a prior dated 06/13/17. No acute infarct, hemorrhage or hydrocephalus is present. Skull and extracranial soft tissues are wit hin normal limits. IMPRESSION: No acute intracranial abnormality. POS: [facility]
--- NOTE | 2017-07-02 23:37 | RAD ---
AP VIEW OF THE CHEST 07/02/17 INDICATION: Chest pain. IMPRESSION: No acute cardiopulmonary abnormality. The exam is compared to prior dated 06/14/17. The examination w as not appreciably changed from this comparison study. POS: [facility]
[2017-07-03 00:48] LABS: Bilirubin Negative (Negative); Blood, Urine Negative (Negative); Glucose, Urine (Dipstick) Negative (Negative); Ketone, Urine Negative (Negative); Nitrite Positive (Negative); Protein, Urine (Dipstick) Negative (Neg-Trace)
[2017-07-03 00:51] LABS: Bacteria/HPF 2+ HPF (None Seen); Hyaline Casts/LPF 0-3 HYALINE CAST LPF (0-3 Hyaline); RBC/HPF 0-3 HPF (0-3); Squamous Epithelial 0-3 HPF (0-3); WBC/HPF 0-3 HPF (0-3)
[2017-07-03 00:56] LABS: Amphetamine Not Detected (NotDetected); Methadone Not Detected (NotDetected); Methamphetamine Not Detected (NotDetected)
[2017-07-03] MEDS ORDERED: Potassium Chloride 20 MEQ TAB ONE (01:19)
[2017-07-03] MEDS ORDERED: Cephalexin 250 MG CAP ONE (01:19)
--- NOTE | 2017-07-12 13:25 | EKG ---
Test Reason : Blood Pressure : / mmHG Vent. Rate : 088 BPM Atrial Rate : 088 BPM P-R Int : 226 ms QRS Dur : 084 ms QT Int : 374 ms P-R-T Axes : 054 036 058 degrees QTc Int : 452 ms Sinus rhythm with 1st degree A-V block with occasional Premature ventricular complexes Otherwise normal ECG Confirmed by ZAN BARNETT ([id number]), graphic editor KATIE CALDERÓN ([id number]) on 07/12/2017 1:24:36 PM Referred By: Confirmed By:ZAN BARNETT
== END 2017-07-03 01:29 | disposition home or self-care (01) ==
LOC: ERS 22:21
DX: E11.65 Type 2 diabetes mellitus with hyperglycemia (principal); N39.0 Urinary tract infection, site not specified; R55 Syncope and collapse; F31.9 Bipolar disorder, unspecified; F20.9 Schizophrenia, unspecified; G40.909 Epilepsy, unspecified, not intractable, without status epilepticus; I10 Essential (primary) hypertension; E03.9 Hypothyroidism, unspecified; G47.00 Insomnia, unspecified; F41.9 Anxiety disorder, unspecified; F17.210 Nicotine dependence, cigarettes, uncomplicated
CPT/HCPCS: 70450; 71010; 80053; 80306; 80307; 81003; 81015; 85025; 93005

== ENCOUNTER 2017-07-15 23:04 | Emergency (ER) | payer MEDICARE, MEDICAID ==
--- NOTE | 2017-07-15 23:44 | CT ---
CT CERVICAL SPINE NONCONTRAST: 07/15/17 HISTORY: 56-year-old female status post acute cervical trauma from fall. FINDINGS: There are no jumped or perched facets. There is no evidence of acute fracture. The vertebral body h eights are maintained. There is no prevertebral soft tissue swelling. There are mild to moderate dis cogenic degenerative changes at lower levels. There is diffuse osteopenia. IMPRESSION: 1. No evidence of acute fracture or acute traumatic subluxation. 2. Osteopenia. michel [] POS: [facility]
--- NOTE | 2017-07-15 23:45 | CT ---
CT BRAIN NONCONTRAST: 07/15/17 HISTORY: 56-year-old female status post head trauma due to fall, striking back of head. FINDINGS: There is no midline shift or any other mass effect. There is no evidence of acute intracranial hemor rhage, large cortical infarct, obstructive hydrocephalus, or extraaxial fluid collection. The calvar ium is intact. IMPRESSION: No acute intracranial findings. michel [] POS: [facility]
[2017-07-16 00:02] LABS: #Basophils 0.1 thou/uL (0.0-0.2); #Eosinphils 0.5 thou/uL (0.0-0.7); #Lymphocytes 3.1 thou/uL (1.20-3.40); #Monocytes 0.6 thou/uL (0.11-0.59); #Neutrophils 4.7 thou/uL (1.40-6.50); %Basophils 0.6 % (0.0-1.0); %Eosinophils 5.5 % (0.0-10.0); %Lymphocytes 34.6 % (21.0-51.0); %Monocytes 6.5 % (0.0-10.0); Hematocrit 38.9 % (36.0-47.0); Mean Platelet Volume 6.4 fL (7.4-10.4); Red Blood Cell (RBC) Count 3.97 mill/uL (4.20-5.40)
[2017-07-16 00:10] LABS: Prothrombin Time 13.3 SEC (12.0-14.7)
--- NOTE | 2017-07-16 00:20 | RAD ---
RADIOGRAPH CHEST 1 VIEW: HISTORY: A 56-year-old female status post acute chest trauma from fall. FINDINGS: There is no air space density, pulmonary edema, or pneumothorax. The lateral costophrenic angles are sharp. IMPRESSION: No acute pulmonary findings. michel [] POS: [facility]
[2017-07-16 00:23] LABS: Acetaminophen Less than 6.0 mcg/mL (10.0-30.0); Salicylate Less than 8.0 mg/dL (15.0-30.0)
[2017-07-16 00:28] LABS: Troponin I Less than 0.010 ng/mL (< 0.028)
[2017-07-16 00:31] LABS: ALT (SGPT) 19 U/L (8-55); AST (SGOT) 22 U/L (5-34); Alkaline Phosphatase 83 U/L (40-150); Anion Gap 11 mmol/L (10-20); BUN (Urea Nitrogen) 9 mg/dL (9.8-20.1); Bilirubin, Total 0.4 mg/dL (0.2-1.2); Calc. Creatinine Clearance 0 mL/min (70-130); Calcium 9.1 mg/dL (7.8-10.44); Carbon Dioxide 27 mmol/L (22-29); Chloride 93 mmol/L (98-107); Estimated GFR-MDRD Greater than 90; Protein, Total 6.6 g/dL (6.0-8.3)
[2017-07-16 02:13] LABS: Bilirubin Negative (Negative); Blood, Urine Negative (Negative); Glucose, Urine (Dipstick) Negative (Negative); Ketone, Urine Negative (Negative); Nitrite Negative (Negative); Protein, Urine (Dipstick) Negative (Neg-Trace)
[2017-07-16 02:16] LABS: Bacteria/HPF None Seen HPF (None Seen); Hyaline Casts/LPF 0-3 HYALINE CAST LPF (0-3 Hyaline); RBC/HPF 0-3 HPF (0-3); Squamous Epithelial 0-3 HPF (0-3)
[2017-07-16 02:21] LABS: Amphetamine Not Detected (NotDetected); Methadone Not Detected (NotDetected); Methamphetamine Not Detected (NotDetected)
== END 2017-07-16 02:02 | disposition home or self-care (01) ==
LOC: ERS 23:04
DX: R55 Syncope and collapse (principal); D64.9 Anemia, unspecified; E03.9 Hypothyroidism, unspecified; G47.00 Insomnia, unspecified; E11.9 Type 2 diabetes mellitus without complications; F41.9 Anxiety disorder, unspecified; F31.9 Bipolar disorder, unspecified; F17.210 Nicotine dependence, cigarettes, uncomplicated
CPT/HCPCS: 36415; 36416; 51701; 70450; 71010; 72125; 80053; 80306; 80307; 81003; 81015; 82553; 84484; 84703; 85025; 85610; 85730; 93005; 99406; A4353

== ENCOUNTER 2017-07-21 19:08 | Emergency (ER) | payer MEDICARE, MEDICAID ==
[2017-07-21 22:05] LABS: #Eosinphils 0.3 thou/uL (0.0-0.7); #Lymphocytes 3.3 thou/uL (1.20-3.40); #Monocytes 0.5 thou/uL (0.11-0.59); #Neutrophils 3.7 thou/uL (1.40-6.50); %Basophils 0.6 % (0.0-1.0); %Eosinophils 3.4 % (0.0-10.0); %Lymphocytes 42.1 % (21.0-51.0); %Monocytes 6.5 % (0.0-10.0); Hematocrit 40.4 % (36.0-47.0); Mean Platelet Volume 6.3 fL (7.4-10.4); Red Blood Cell (RBC) Count 4.12 mill/uL (4.20-5.40); White Blood Cell (WBC) Count 7.9 thou/uL (4.8-10.8)
[2017-07-21 22:26] LABS: ALT (SGPT) 25 U/L (8-55); AST (SGOT) 31 U/L (5-34); Alkaline Phosphatase 76 U/L (40-150); Anion Gap 10 mmol/L (10-20); BUN (Urea Nitrogen) 5 mg/dL (9.8-20.1); Bilirubin, Total 0.7 mg/dL (0.2-1.2); Calc. Creatinine Clearance 0 mL/min (70-130); Calcium 9.5 mg/dL (7.8-10.44); Carbon Dioxide 26 mmol/L (22-29); Chloride 96 mmol/L (98-107); Estimated GFR-MDRD Greater than 90; Globulin 3.2 g/dL (2.4-3.5); Protein, Total 7.3 g/dL (6.0-8.3)
--- NOTE | 2017-07-22 08:21 | CT ---
PRELIMINARY REPORT/[facility]/EMERGENCY AFTER HOURS PROCEDURE: EXAM: CT Head Without Intravenous Contrast EXAM DATE/TIME: 07/22/2017 1:04 AM CLINICAL HISTORY: 56 years old, female; Signs and symptoms; Other: Seizure TECHNIQUE: Axial computed tomography images of the head/brain without intravenous contrast. COMPARISON: No relevant prior studies available. FINDINGS: Artifacts: Motion artifact limits this study. Brain: No evidence of acute intracranial hemorrhage, extraxial fluid or midline shift. No evidence of acute large vessel infarction. Ventricles: Unremarkable. No ventriculomegaly. Bones/joints: Unremarkable. No acute fracture. Soft tissues: Unremarkable. Sinuses: Unremarkable as visualized. No acute sinusitis. Mastoid air cells: Unremarkable as visualized. No mastoid effusion. IMPRESSION: 1. Motion artifact limits this study. 2. No evidence of acute intracranial hemorrhage, extraxial fluid or midline shift. 3. No evidence of acute large vessel infarction. Thank you for allowing us to participate in the care of your patient. Dictated and Authenticated by: Chaz Bailey MD 07/22/2017 1:28 AM Central Time ([place] & [place]) FINAL REPORT EMERGENCY AFTER HOURS CT OF BRAIN PERFORMED WITHOUT CONTRAST ENHANCEMENT: Date: 07/22/17 HISTORY: Seizures with fall, hitting back of head. COMPARISON: 07/15/17 exam. FINDINGS: Ventricular and cisternal system is mildly prominent. There are no signs of intracerebral hemorrhage or extra-axial fluid collections. Mastoid air cells and visualized sinuses are clear. IMPRESSION: No acute intracranial abnormalities. This report is in agreement with the preliminary report issued by [facility]. POS: [facility]
== END 2017-07-22 01:31 | disposition home or self-care (01) ==
LOC: ERS 19:08
DX: G40.909 Epilepsy, unspecified, not intractable, without status epilepticus (principal); E87.1 Hypo-osmolality and hyponatremia; D64.9 Anemia, unspecified; I10 Essential (primary) hypertension; E03.9 Hypothyroidism, unspecified; E11.9 Type 2 diabetes mellitus without complications; F41.9 Anxiety disorder, unspecified; F31.9 Bipolar disorder, unspecified; F17.210 Nicotine dependence, cigarettes, uncomplicated; Z79.899 Other long term (current) drug therapy; Z79.82 Long term (current) use of aspirin
CPT/HCPCS: 36415; 70450; 80053; 80156; 84146; 85025; 93005; 94760; 96360; 96361; 99406

== ENCOUNTER 2017-07-22 20:21 | Emergency (ER) | payer MEDICARE, MEDICAID ==
[2017-07-22 21:09] LABS: #Basophils 0.1 thou/uL (0.0-0.2); #Eosinphils 0.5 thou/uL (0.0-0.7); #Lymphocytes 3.1 thou/uL (1.20-3.40); #Monocytes 0.5 thou/uL (0.11-0.59); #Neutrophils 3.4 thou/uL (1.40-6.50); %Basophils 0.7 % (0.0-1.0); %Eosinophils 6.4 % (0.0-10.0); %Lymphocytes 41.3 % (21.0-51.0); %Monocytes 6.6 % (0.0-10.0); Hematocrit 38.6 % (36.0-47.0); Mean Platelet Volume 6.7 fL (7.4-10.4); Red Blood Cell (RBC) Count 3.94 mill/uL (4.20-5.40); White Blood Cell (WBC) Count 7.6 thou/uL (4.8-10.8)
[2017-07-22 21:30] LABS: ALT (SGPT) 24 U/L (8-55); AST (SGOT) 32 U/L (5-34); Alkaline Phosphatase 69 U/L (40-150); Anion Gap 13 mmol/L (10-20); BUN (Urea Nitrogen) 6 mg/dL (9.8-20.1); Bilirubin, Total 0.5 mg/dL (0.2-1.2); Calc. Creatinine Clearance 0 mL/min (70-130); Calcium 9.3 mg/dL (7.8-10.44); Carbon Dioxide 24 mmol/L (22-29); Chloride 99 mmol/L (98-107); Estimated GFR-MDRD Greater than 90; Globulin 3.3 g/dL (2.4-3.5); Protein, Total 7.1 g/dL (6.0-8.3)
== END 2017-07-22 22:40 | disposition home or self-care (01) ==
LOC: ERS 20:21
DX: E87.1 Hypo-osmolality and hyponatremia (principal); D64.9 Anemia, unspecified; G40.909 Epilepsy, unspecified, not intractable, without status epilepticus; I10 Essential (primary) hypertension; E03.9 Hypothyroidism, unspecified; E11.9 Type 2 diabetes mellitus without complications; F31.9 Bipolar disorder, unspecified; F41.9 Anxiety disorder, unspecified; F17.210 Nicotine dependence, cigarettes, uncomplicated; Z79.82 Long term (current) use of aspirin; Z79.899 Other long term (current) drug therapy
CPT/HCPCS: 80053; 85025; 99406

== ENCOUNTER 2017-07-28 16:24 | Emergency (ER) | payer MEDICARE, MEDICAID ==
--- NOTE | 2017-07-28 18:55 | RAD ---
PORTABLE CHEST: 07/28/17 HISTORY: Productive cough with fever. COMPARISON: 07/16/17 study. Heart size and mediastinum are within normal limits. The lungs are clear of any infiltrative process. IMPRESSION: No active intrathoracic disease. POS: [facility]
== END 2017-07-28 19:29 | disposition home or self-care (01) ==
LOC: ERS 16:24
DX: J20.9 Acute bronchitis, unspecified (principal); D64.9 Anemia, unspecified; E03.9 Hypothyroidism, unspecified; E11.9 Type 2 diabetes mellitus without complications; I10 Essential (primary) hypertension; G40.909 Epilepsy, unspecified, not intractable, without status epilepticus; J45.909 Unspecified asthma, uncomplicated; F31.9 Bipolar disorder, unspecified; F41.9 Anxiety disorder, unspecified; F20.9 Schizophrenia, unspecified; F17.210 Nicotine dependence, cigarettes, uncomplicated
CPT/HCPCS: 71010; 87804; 94640; 99406; J7620

== ENCOUNTER 2018-03-21 11:22 | Emergency (ER) | payer MEDICARE, MEDICAID ==
[2018-03-21 12:29] LABS: #Eosinphils 0.2 thou/uL (0.0-0.7); #Lymphocytes 2.6 thou/uL (1.20-3.40); #Monocytes 0.3 thou/uL (0.11-0.59); #Neutrophils 3.9 thou/uL (1.40-6.50); %Basophils 0.2 % (0.0-1.0); %Eosinophils 2.8 % (0.0-10.0); %Lymphocytes 36.8 % (21.0-51.0); %Monocytes 4.8 % (0.0-10.0); %Neutrophils 55.4 % (42.0-75.0); Hemoglobin 14.1 g/dL (12.0-16.0); Mean Corpuscular Hemoglobin 33.5 pg (27.0-31.0); Mean Corpuscular Volume 92.9 fL (78.0-98.0); Platelet Count 165 thou/uL (130-400); RBC Distribution Width 11.6 % (11.5-14.5)
[2018-03-21 12:50] LABS: ALT (SGPT) 11 U/L (8-55); AST (SGOT) 18 U/L (5-34); Alkaline Phosphatase 70 U/L (40-150); Anion Gap 13 mmol/L (10-20); BUN (Urea Nitrogen) 7 mg/dL (9.8-20.1); Bilirubin, Total 0.4 mg/dL (0.2-1.2); Calc. Creatinine Clearance 0 mL/min (70-130); Calcium 9.7 mg/dL (7.8-10.44); Carbon Dioxide 25 mmol/L (22-29); Chloride 106 mmol/L (98-107); Estimated GFR-MDRD Greater than 90; Globulin 3.5 g/dL (2.4-3.5); Glucose 107 mg/dL (70-105); Protein, Total 7.5 g/dL (6.0-8.3); Sodium 140 mmol/L (136-145)
[2018-03-21 12:55] LABS: PTT 34.5 SEC (22.9-36.1); Prothrombin Time 13.3 SEC (12.0-14.7)
[2018-03-21 12:57] LABS: Troponin I Less than 0.010 ng/mL (< 0.028)
[2018-03-21 13:03] LABS: D-Dimer Test Less than 0.27 *mcg/mL (0.27-0.43)
--- NOTE | 2018-03-21 13:05 | RAD ---
SINGLE VIEW OF THE CHEST: COMPARISON: 07/28/17. HISTORY: Drowsiness. The patient took too much medication this morning. FINDINGS: Single view of the chest shows a normal sized cardiomediastinal silhouette. There is no evidence of c onsolidation, mass, or pleural effusion. The bones are unremarkable. IMPRESSION: No evidence of acute cardiopulmonary disease. POS: [facility]
[2018-03-21 13:29] LABS: Acetaminophen Less than 6.0 mcg/mL (10.0-30.0); Alcohol Less than 10 mg/dL (Less than 10); Salicylate Less than 8.0 mg/dL (15.0-30.0)
[2018-03-21 14:34] LABS: Bilirubin Negative (Negative); Blood, Urine Small (Negative); Clarity TURBID (Clear); Glucose, Urine (Dipstick) Negative (Negative); Leukocyte Large (Negative); Nitrite Positive (Negative); Protein, Urine (Dipstick) Negative (Neg-Trace); Specific Gravity, Urine 1.008 (1.002-1.036); Urobilinogen 0.2 mg/dL (0.2-1.0); pH, Urine 6.5 (5.0-9.0)
[2018-03-21 14:36] LABS: Bacteria/HPF 1+ HPF (None Seen); Hyaline Casts/LPF 0-3 HYALINE CAST LPF (0-3 Hyaline); Pathc Cast-AUWi Flag 0.29 (0-2.49); Squamous Epithelial 0-3 HPF (0-3)
[2018-03-21 14:43] LABS: Amphetamine Not Detected (NotDetected); Barbiturates Screen Not Detected (NotDetected); Benzodiazepine Screen Detected (NotDetected); Cocaine Metabolite Screen Not Detected (NotDetected); Medtox Control Line Valid? VALID (VALID); Medtox Reader # READER 4; Methadone Not Detected (NotDetected); Methamphetamine Not Detected (NotDetected); Opiate Screen Not Detected (NotDetected); Oxycodone Screen Not Detected (NotDetected); Phencyclidine (PCP) Not Detected (NotDetected); THC/Cannabinoid Screen Not Detected (NotDetected); Tricyclic Screen Not Detected (NotDetected)
== END 2018-03-21 15:22 | disposition home or self-care (01) ==
LOC: ERS 11:22
DX: N39.0 Urinary tract infection, site not specified (principal); E03.9 Hypothyroidism, unspecified; J45.909 Unspecified asthma, uncomplicated; F41.9 Anxiety disorder, unspecified; F31.9 Bipolar disorder, unspecified; F20.9 Schizophrenia, unspecified; F17.210 Nicotine dependence, cigarettes, uncomplicated; G47.00 Insomnia, unspecified; I10 Essential (primary) hypertension
CPT/HCPCS: 71045; 80053; 80306; 80307; 81003; 81015; 82553; 83880; 84484; 85025; 85379; 85610; 85730; 93005

== ENCOUNTER 2018-03-24 14:38 | Emergency (ER) | payer MEDICARE, MEDICAID ==
[2018-03-24 15:24] LABS: Bilirubin Negative (Negative); Blood, Urine Negative (Negative); Clarity CLEAR (Clear); Glucose, Urine (Dipstick) Negative (Negative); Leukocyte Negative (Negative); Nitrite Negative (Negative); Protein, Urine (Dipstick) Negative (Neg-Trace); Specific Gravity, Urine 1.005 (1.002-1.036); Urobilinogen 0.2 mg/dL (0.2-1.0); pH, Urine 6.5 (5.0-9.0)
[2018-03-24 15:33] LABS: #Basophils 0.1 thou/uL (0.0-0.2); #Eosinphils 0.2 thou/uL (0.0-0.7); #Monocytes 0.3 thou/uL (0.11-0.59); #Neutrophils 4.5 thou/uL (1.40-6.50); %Basophils 0.6 % (0.0-1.0); %Eosinophils 2.4 % (0.0-10.0); %Monocytes 3.5 % (0.0-10.0); %Neutrophils 56.5 % (42.0-75.0); Hemoglobin 14.4 g/dL (12.0-16.0); Mean Corpuscular HGB CONC 35.5 g/dL (32.0-36.0); Mean Corpuscular Hemoglobin 32.7 pg (27.0-31.0); Mean Corpuscular Volume 92.1 fL (78.0-98.0); Mean Platelet Volume 6.7 fL (7.4-10.4); Platelet Count 163 thou/uL (130-400); RBC Distribution Width 11.3 % (11.5-14.5); Red Blood Cell (RBC) Count 4.39 mill/uL (4.20-5.40)
[2018-03-24 15:38] LABS: Amphetamine Not Detected (NotDetected); Barbiturates Screen Not Detected (NotDetected); Benzodiazepine Screen Detected (NotDetected); Cocaine Metabolite Screen Not Detected (NotDetected); Medtox Control Line Valid? VALID (VALID); Medtox Reader # READER 1; Methadone Not Detected (NotDetected); Methamphetamine Not Detected (NotDetected); Opiate Screen Not Detected (NotDetected); Oxycodone Screen Not Detected (NotDetected); Phencyclidine (PCP) Not Detected (NotDetected); THC/Cannabinoid Screen Not Detected (NotDetected); Tricyclic Screen Not Detected (NotDetected)
[2018-03-24 15:54] LABS: ALT (SGPT) 9 U/L (8-55); AST (SGOT) 16 U/L (5-34); Alkaline Phosphatase 75 U/L (40-150); Anion Gap 11 mmol/L (10-20); BUN (Urea Nitrogen) 7 mg/dL (9.8-20.1); Bilirubin, Total 0.6 mg/dL (0.2-1.2); Calc. Creatinine Clearance 0 mL/min (70-130); Calcium 9.5 mg/dL (7.8-10.44); Carbon Dioxide 26 mmol/L (22-29); Chloride 104 mmol/L (98-107); Estimated GFR-MDRD 90; Globulin 3.3 g/dL (2.4-3.5); Glucose 102 mg/dL (70-105); Potassium 3.8 mmol/L (3.5-5.1); Protein, Total 7.3 g/dL (6.0-8.3); Sodium 137 mmol/L (136-145)
[2018-03-24 17:18] LABS: CKMB 1.3 ng/mL (0-6.6); Troponin I Less than 0.010 ng/mL (< 0.028)
== END 2018-03-24 17:57 | disposition home or self-care (01) ==
LOC: ERS 14:38
DX: F13.90 Sedative, hypnotic, or anxiolytic use, unspecified, uncomplicated (principal); R47.81 Slurred speech; D64.9 Anemia, unspecified; G40.909 Epilepsy, unspecified, not intractable, without status epilepticus; I10 Essential (primary) hypertension; E03.9 Hypothyroidism, unspecified; G47.00 Insomnia, unspecified; J45.909 Unspecified asthma, uncomplicated; G43.909 Migraine, unspecified, not intractable, without status migrainosus; F41.9 Anxiety disorder, unspecified; F31.9 Bipolar disorder, unspecified; F20.9 Schizophrenia, unspecified; F17.210 Nicotine dependence, cigarettes, uncomplicated
CPT/HCPCS: 36415; 80053; 80306; 81003; 82553; 84484; 85025; 93005

== ENCOUNTER 2018-05-08 11:12 | Outpatient (CLI) | payer MEDICARE, MEDICAID | END 2018-05-08 11:13 | disposition home or self-care (01) | LOC: BICMAMMO 11:12 | PROVIDERS: ATTEND Family Medicine | DX: Z12.31 Encounter for screening mammogram for malignant neoplasm of breast (principal); R92.1 Mammographic calcification found on diagnostic imaging of breast; Z80.3 Family history of malignant neoplasm of breast | CPT/HCPCS: 77063; 77067 ==

== ENCOUNTER 2019-08-12 22:35 | Emergency (ER) | payer MEDICARE, MEDICAID ==
--- NOTE | 2019-08-12 23:04 | RAD ---
Chest AP view INDICATION: Chest pain and cough with nausea and vomiting COMPARISON: Prior exam dated March 21, 2018 FINDINGS: Lungs:Low lung volumes. No consolidation. Cardiac silhouette:The cardiomediastinal silhouette appears within normal limits. Pulmonary vasculature:Normal Pleural spaces:No pleural effusion or pneumothorax is demonstrated. Upper abdomen:No abnormality seen. Osseous structures: No acute osseous abnormality. Additional findings:None. IMPRESSION: No acute cardiopulmonary abnormality.
[2019-08-12 23:19] LABS: #Eosinphils 0.1 thou/uL (0.0-0.7); #Lymphocytes 0.8 thou/uL (1.20-3.40); #Monocytes 0.5 thou/uL (0.11-0.59); #Neutrophils 5.3 thou/uL (1.40-6.50); %Basophils 0.2 % (0.0-1.0); %Lymphocytes 11.5 % (21.0-51.0); %Monocytes 7.9 % (0.0-10.0); %Neutrophils 79.4 % (42.0-75.0); Hemoglobin 12.1 g/dL (12.0-16.0); Mean Corpuscular HGB CONC 34.1 g/dL (32.0-36.0); Mean Corpuscular Hemoglobin 31.8 pg (27.0-31.0); Mean Corpuscular Volume 93.2 fL (78.0-98.0); Mean Platelet Volume 7.6 fL (7.4-10.4); Platelet Count 173 thou/uL (130-400); RBC Distribution Width 11.9 % (11.5-14.5); Red Blood Cell (RBC) Count 3.81 mill/uL (4.20-5.40); White Blood Cell (WBC) Count 6.6 thou/uL (4.8-10.8)
[2019-08-12] MEDS ORDERED: Ketorolac Tromethamine 30 MG/ML VIAL ONE (23:31)
[2019-08-12 23:41] LABS: ALT (SGPT) 11 U/L (8-55); AST (SGOT) 13 U/L (5-34); Alkaline Phosphatase 77 U/L (40-110); Anion Gap 11 mmol/L (10-20); BUN (Urea Nitrogen) 11 mg/dL (9.8-20.1); Bilirubin, Total 0.2 mg/dL (0.2-1.2); Calc. Creatinine Clearance 0 mL/min (70-130); Calcium 9.2 mg/dL (7.8-10.44); Carbon Dioxide 25 mmol/L (22-29); Chloride 103 mmol/L (98-107); Estimated GFR-MDRD 72; Globulin 2.9 g/dL (2.4-3.5); Glucose 109 mg/dL (70-105); Potassium 3.6 mmol/L (3.5-5.1); Protein, Total 6.9 g/dL (6.0-8.3); Sodium 135 mmol/L (136-145)
== END 2019-08-13 00:20 | disposition home or self-care (01) ==
LOC: ERS 22:35
DX: J06.9 Acute upper respiratory infection, unspecified (principal); I25.2 Old myocardial infarction; I10 Essential (primary) hypertension; D64.9 Anemia, unspecified; E03.9 Hypothyroidism, unspecified; G47.00 Insomnia, unspecified; J45.909 Unspecified asthma, uncomplicated; G43.909 Migraine, unspecified, not intractable, without status migrainosus; F41.9 Anxiety disorder, unspecified; F31.9 Bipolar disorder, unspecified; F20.9 Schizophrenia, unspecified; F17.210 Nicotine dependence, cigarettes, uncomplicated
CPT/HCPCS: 71045; 80053; 83880; 84484; 85025; 93005; 96374; J1885

== ENCOUNTER 2019-08-22 20:12 | Emergency (ER) | payer MEDICARE, MEDICAID ==
[2019-08-22 20:55] LABS: Bilirubin Negative (Negative); Blood, Urine Negative (Negative); Clarity Clear (Clear); Glucose, Urine (Dipstick) Normal (Negative); Leukocyte 75 Leu/uL (Negative); Nitrite Negative (Negative); Protein, Urine (Dipstick) Negative (Neg-Trace); RBC/HPF 0-3 HPF (0-3); Urobilinogen Normal mg/dL (Less than 2)
[2019-08-22 20:55] LABS: #Basophils 0.1 thou/uL (0.0-0.2); #Eosinphils 0.2 thou/uL (0.0-0.7); #Lymphocytes 4.1 thou/uL (1.20-3.40); #Monocytes 0.6 thou/uL (0.11-0.59); #Neutrophils 5.2 thou/uL (1.40-6.50); %Basophils 0.8 % (0.0-1.0); %Lymphocytes 40.5 % (21.0-51.0); %Monocytes 5.5 % (0.0-10.0); %Neutrophils 51.1 % (42.0-75.0); Hemoglobin 12.5 g/dL (12.0-16.0); Mean Corpuscular HGB CONC 33.8 g/dL (32.0-36.0); Mean Corpuscular Hemoglobin 31.4 pg (27.0-31.0); Mean Platelet Volume 7.1 fL (7.4-10.4); Platelet Count 218 thou/uL (130-400); RBC Distribution Width 11.9 % (11.5-14.5); Red Blood Cell (RBC) Count 3.98 mill/uL (4.20-5.40); White Blood Cell (WBC) Count 10.1 thou/uL (4.8-10.8)
[2019-08-22 21:03] LABS: Amphetamine Not Detected (NotDetected); Barbiturates Screen Not Detected (NotDetected); Benzodiazepine Screen Not Detected (NotDetected); Cocaine Metabolite Screen Not Detected (NotDetected); Medtox Control Line Valid? VALID (VALID); Medtox Reader # READER 1; Methadone Not Detected (NotDetected); Methamphetamine Not Detected (NotDetected); Opiate Screen Not Detected (NotDetected); Oxycodone Screen Not Detected (NotDetected); Phencyclidine (PCP) Not Detected (NotDetected); THC/Cannabinoid Screen Not Detected (NotDetected); Tricyclic Screen Not Detected (NotDetected)
[2019-08-22 21:07] LABS: Bacteria/HPF Rare-Few HPF (None Seen)
--- NOTE | 2019-08-22 21:14 | RAD ---
Exam:3 views right shoulder HISTORY: Fall. Pain. COMPARISON: None FINDINGS: Glenohumeral joint space is preserved. No fracture. No dislocation. Visualized right ribs a re unremarkable. IMPRESSION: No fracture or dislocation.
--- NOTE | 2019-08-22 21:14 | RAD ---
EXAM: Chest PA and lateral: HISTORY: Cough COMPARISON: 08/12/2019 FINDINGS: Heart: Normal cardiac silhouette Aorta: Atherosclerosis of the aortic knob Pulmonary vessels: Normal Costophrenic angles: Costophrenic angles are clear. Lungs: No consolidation or masses. Inflation. Chronic changes. Pneumothorax: No pneumothorax Osseous structures: No osseous abnormalities IMPRESSION: No acute cardiopulmonary process. Atherosclerosis.
[2019-08-22 21:16] LABS: ALT (SGPT) 14 U/L (8-55); AST (SGOT) 13 U/L (5-34); Albumin 3.9 g/dL (3.5-5.0); Alkaline Phosphatase 68 U/L (40-110); Anion Gap 9 mmol/L (10-20); BUN (Urea Nitrogen) 9 mg/dL (9.8-20.1); Bilirubin, Total 0.2 mg/dL (0.2-1.2); Calc. Creatinine Clearance 0 mL/min (70-130); Calcium 9.1 mg/dL (7.8-10.44); Carbon Dioxide 27 mmol/L (22-29); Chloride 102 mmol/L (98-107); Estimated GFR-MDRD 79; Globulin 2.9 g/dL (2.4-3.5); Glucose 97 mg/dL (70-105); Potassium 3.3 mmol/L (3.5-5.1); Protein, Total 6.8 g/dL (6.0-8.3); Sodium 135 mmol/L (136-145)
[2019-08-22] MEDS ORDERED: Ibuprofen 800 MG TAB ONE (21:35)
[2019-08-22] MEDS ORDERED: levETIRAcetam 1000 MG/100 ML PREMIX BAG ONE (21:35)
[2019-08-22] MEDS ORDERED: levETIRAcetam 500 MG TAB PO SCH (22:00)
== END 2019-08-22 22:12 | disposition home or self-care (01) ==
LOC: ERS 20:12
DX: G40.909 Epilepsy, unspecified, not intractable, without status epilepticus (principal); E87.6 Hypokalemia; J45.909 Unspecified asthma, uncomplicated; G43.909 Migraine, unspecified, not intractable, without status migrainosus; I10 Essential (primary) hypertension; I25.2 Old myocardial infarction; G47.00 Insomnia, unspecified; F41.9 Anxiety disorder, unspecified; F31.9 Bipolar disorder, unspecified; F20.9 Schizophrenia, unspecified; F17.210 Nicotine dependence, cigarettes, uncomplicated; D64.9 Anemia, unspecified; E03.9 Hypothyroidism, unspecified; Z79.51 Long term (current) use of inhaled steroids; Z79.899 Other long term (current) drug therapy
CPT/HCPCS: 36415; 71046; 80053; 80306; 81003; 81015; 85025; 93005; J1953

== ENCOUNTER 2019-08-23 13:00 | Observation (INO) | payer MEDICARE, MEDICAID ==
[2019-08-23 14:00] LABS: #Basophils 0.1 thou/uL (0.0-0.2); #Eosinphils 0.2 thou/uL (0.0-0.7); #Lymphocytes 2.4 thou/uL (1.20-3.40); #Monocytes 0.4 thou/uL (0.11-0.59); #Neutrophils 5.5 thou/uL (1.40-6.50); %Basophils 0.9 % (0.0-1.0); %Eosinophils 2.2 % (0.0-10.0); %Lymphocytes 27.9 % (21.0-51.0); %Monocytes 4.8 % (0.0-10.0); %Neutrophils 64.1 % (42.0-75.0); Mean Corpuscular HGB CONC 33.9 g/dL (32.0-36.0); Mean Corpuscular Hemoglobin 31.8 pg (27.0-31.0); Mean Corpuscular Volume 93.5 fL (78.0-98.0); Platelet Count 224 thou/uL (130-400); RBC Distribution Width 11.9 % (11.5-14.5); White Blood Cell (WBC) Count 8.6 thou/uL (4.8-10.8)
[2019-08-23 14:50] LABS: ALT (SGPT) 12 U/L (8-55); AST (SGOT) 14 U/L (5-34); Albumin 3.9 g/dL (3.5-5.0); Alkaline Phosphatase 65 U/L (40-110); Anion Gap 13 mmol/L (10-20); BUN (Urea Nitrogen) 8 mg/dL (9.8-20.1); Bilirubin, Total 0.4 mg/dL (0.2-1.2); Calc. Creatinine Clearance 0 mL/min (70-130); Carbon Dioxide 24 mmol/L (22-29); Chloride 105 mmol/L (98-107); Estimated GFR-MDRD 87; Glucose 86 mg/dL (70-105); Potassium 3.6 mmol/L (3.5-5.1); Protein, Total 6.9 g/dL (6.0-8.3); Sodium 138 mmol/L (136-145)
[2019-08-23 16:54] LABS: Bilirubin Negative (Negative); Blood, Urine Negative (Negative); Clarity Clear (Clear); Glucose, Urine (Dipstick) Normal (Negative); Leukocyte Negative Leu/uL (Negative); Nitrite Negative (Negative); Protein, Urine (Dipstick) Negative (Neg-Trace); Urobilinogen Normal mg/dL (Less than 2)
[2019-08-23] MEDS ORDERED: levETIRAcetam 1000 MG/100 ML PREMIX BAG ONE (17:15)
[2019-08-23] MEDS ORDERED: levETIRAcetam In NaCl (Iso-Os) 1,000 MG in Premix Bag 1 BAG IVPB SCH (17:15)
[2019-08-23] MEDS ORDERED: Ondansetron PF 4 MG/2 ML Vial IVP PRN (19:39)
[2019-08-23] MEDS ORDERED: Guaifenesin DM 100-10/5 ML UDCUP PO PRN (19:39)
[2019-08-23] MEDS ORDERED: Senokot S 8.6-50 MG TAB PO PRN (19:39)
[2019-08-23] MEDS ORDERED: Ondansetron ODT 4 MG TAB PO PRN (19:39)
[2019-08-23] MEDS ORDERED: Ibuprofen 800 MG TAB PO PRN (19:39)
--- NOTE | 2019-08-23 20:07 | HP ---
PRIMARY CARE PHYSICIAN: Valeriy Isbell. CHIEF COMPLAINT: Seizure. HISTORY OF PRESENT ILLNESS: This is a 58-year-old white female who has known history of seizure disorder, but no seizures for over 2 years, also with a history of bipolar and depression and moderate intellectual disability. The patient is in a detention, accompanied here by one of the attendants there. She has had a cough for about a week with congestion, diagnosed with bronchitis by her primary care doctor and given a prescription for antibiotics, a Z-Christophe along with a prednisone taper. She had persistence of her cough and went back into the doctor yesterday. At that time, she had a steroid injection and then was prescribed an antibiotic that she has not filled yet. She was in her normal state of health except for the cough until in the evening yesterday and she was sitting in a chair and slumped over, then slid out of the chair and had a generalized tonic-clonic seizure witnessed by staff, lasts for 5 minutes and then she slowly came back to normal mental status. She was fine again this morning, but later toward the afternoon she had another 5-minute seizure and after that, she has had at least 10 episodes of shorter seizure-type activity, but for much shorter period of time, she has been a little confused afterward, she was brought into the emergency room. Here, she was loaded with Keppra and then when they were sending her back to her detention. She had another 2 episodes of seizures, and so she is being put in observation in the hospital. Dr. King was notified from the emergency room. He had recommended increasing her Keppra, after checking a level, increasing her Keppra to 2000 mg at night and 1500 in the morning. The patient is mostly back to her baseline, just a mild amount of confusion now. Most of the history was taken from the patient; however, she gets some of the information wrong and her attendant at the bedside was able to clarify how long these had been going on for and what exactly happened. PAST MEDICAL HISTORY: The patient is not able to give much about her medical history and most of it is taken from the chart. 1. Bipolar. 2. Hypothyroidism. 3. Depression. 4. Hypertension. 5. Seizure disorder. 6. Anxiety. 7. Anemia. 8. Gastroesophageal reflux disease. 9. Moderate intellectual disability. 10. Hepatitis C. 11. Questionable history of heart disease. PAST SURGICAL HISTORY: 1. Hysterectomy. 2. Cholecystectomy. 3. Ankle surgery. 4. Back surgery. 5. Appendectomy. 6. Tonsillectomy. SOCIAL HISTORY: The patient currently smokes cigarettes about one pack per day. No alcohol. No current illicit drug use. She is a former drug user. Abused cocaine, crack, crystal meth and pot in the past per her computer chart. She lives in a long-term care facility- detention. FAMILY HISTORY: Unknown. ALLERGIES: 1. BENZODIAZEPINES. 2. ACETAMINOPHEN. 3. PENICILLINS. HOME MEDICATIONS: 1. BuSpar 30 mg twice a day. 2. Geodon 160 mg at night. 3. Amitiza 24 mcg twice a day. 4. Sodium chloride 1 g twice a day. 5. Aspirin 81 mg daily. 6. Levothyroxine 100 mcg daily. 7. Benztropine 1 mg at night. 8. Levetiracetam 1500 mg twice a day. 9. Melatonin 10 mg at night. 10. Topamax 50 mg twice a day. 11. Fluticasone spray 50 mcg daily, two sprays in each nostril daily. 12. Ibuprofen 800 mg every 8 hours as needed for pain. 13. Ventolin inhaler as needed. 14. MiraLAX as needed for constipation. 15. Tramadol 50 mg every 8 hours as needed for pain. REVIEW OF SYSTEMS: CONSTITUTIONAL: She had some low-grade fevers initially with bronchitis, this resolved. No chills. EYES: No double vision or blurred vision. ENT: She is not really having nasal congestion or drainage. She did have a little bit of bleeding from her nose a few days ago. No sore throat. CARDIOVASCULAR: No chest pain. No palpitations or racing heart. PULMONARY: She had coughing as per HPI. No shortness of breath currently, but she does have a little chest tightness during the coughing fits and a little bit of substernal discomfort with coughing fits only. She also has had some wheezing on and off. GASTROINTESTINAL: No abdominal pain. No nausea or vomiting. No diarrhea or constipation. GENITOURINARY: No dysuria or hematuria. MUSCULOSKELETAL: No specific muscle aches or joint pain. SKIN: No rashes or other lesions. NEUROLOGIC: See HPI. PHYSICAL EXAMINATION: VITAL SIGNS: Blood pressure 121/84, pulse 70, respirations 14, O2 saturation 96 % on room air, and temperature 98.3. GENERAL: This is a well-developed, well-nourished white female, in no acute distress. HEENT: Pupils equal, round, and reactive to light. Oropharynx is clear without lesions, erythema, or exudate. NECK: Supple. No lymphadenopathy. No thyroid nodules or enlargement. HEART: Regular rate and rhythm. No murmurs, rubs, or gallops. LUNGS: Clear to auscultation bilaterally. No wheezes, crackles, or rhonchi. ABDOMEN: Soft, nontender to palpation. Normoactive bowel sounds. No hepatosplenomegaly or other masses. EXTREMITIES: No clubbing, cyanosis, or edema. SKIN: No rashes or other lesions noted. NEUROLOGIC: The patient is able to move all extremities equally with equal strength. Normal reflexes throughout. She has no facial droop. No slurring of speech. PSYCHIATRIC: The patient is alert. She is oriented to person and place, but said it was 1918 when I asked the year and then she would just repeat 19 when I asked the date and the month. She does know she is here because she had seizures. LABORATORY DATA: CBC within normal limits. Complete metabolic panel is within normal limits. Lactic acid was negative. Prolactin was normal. Urinalysis was negative. Toxicology showed a Keppra level of 41.9. ASSESSMENT: 1. Breakthrough seizures with a history of seizure disorder. The patient has reportedly been compliant with medication. She does have Keppra in her system. I would like to get the level up per Dr. King's instructions, so she has had an extra dose of Keppra IV. Here in the emergency room, we will increase her nighttime dose of Keppra. She did not have an elevated prolactin. When she does raise the possibility, this was not actually seizure activity, it is possible that she is having, this is some sort of conversion disorder or it is related to psychiatric issues raised by her recent steroid courses. We will go ahead and put her in observation in the hospital overnight, put on seizure precautions and have Dr. King evaluate her tomorrow. Given the lack of focal neurologic signs, we will hold off on a CT of the brain for now, though she may require that if she has any worsening of symptoms. 2. Hypothyroidism. Resume the patient's thyroid medications. 3. Bipolar and psychiatric issues. We will resume the patient's home medications. 4. Bronchitis. The patient has been treated with multiple steroid courses and antibiotic course that should be adequate for bronchitis. She is likely just going to have a prolonged bronchitis cough, which is not unusual and even in healthy patients, especially patients with a history of smoking, I would not be surprised if the cough lasts for 3 to 4 weeks. At this time, she does not need any specific treatment, but we will give her nebulized treatment as needed for any shortness of breath or worsening of the cough. I will hold off any steroids for now. 5. Tobacco abuse. We will recommend the patient to quit smoking. Her tone regulator has been trying to encourage her to quit smoking as well. 6. Gastroesophageal reflux disease. We will put the patient on Pepcid twice a day. 7. Deep venous thrombosis prophylaxis. We will put the patient on Lovenox subcu and encourage ambulation. CODE STATUS: The patient is a full code. Job ID: [id number] MTDD
[2019-08-23] MEDS ORDERED: Melatonin 3 MG TAB PO SCH (21:00)
[2019-08-23] MEDS ORDERED: levETIRAcetam 500 MG TAB PO SCH (21:00)
[2019-08-23] MEDS ORDERED: Benztropine 1 MG TAB PO SCH (21:00)
[2019-08-23] MEDS: Sodium Chloride 1 GM TAB PO SCH (21:46)
[2019-08-23] MEDS: Topiramate 25 MG TAB PO SCH (21:46)
[2019-08-23] MEDS: busPIRone HCl 10 MG TAB PO SCH (21:47)
[2019-08-23] MEDS: Famotidine 20 MG TAB PO SCH (21:47)
[2019-08-23] MEDS: traMADol HCl 50 MG TAB PO SCH (21:47)
[2019-08-23] MEDS: Lubiprostone 24 MCG CAP PO SCH (21:48)
[2019-08-23 23:25] VITALS: BMI 28.1
[2019-08-24] MEDS: traMADol HCl 50 MG TAB PO SCH ×3 (02:35→08:41)
[2019-08-24 04:42] LABS: #Eosinphils 0.2 thou/uL (0.0-0.7); #Lymphocytes 2.7 thou/uL (1.20-3.40); #Monocytes 0.5 thou/uL (0.11-0.59); #Neutrophils 6.2 thou/uL (1.40-6.50); %Basophils 0.4 % (0.0-1.0); %Eosinophils 1.7 % (0.0-10.0); %Lymphocytes 28.5 % (21.0-51.0); %Monocytes 4.8 % (0.0-10.0); %Neutrophils 64.6 % (42.0-75.0); Hemoglobin 12.3 g/dL (12.0-16.0); Mean Corpuscular HGB CONC 34.2 g/dL (32.0-36.0); Mean Corpuscular Hemoglobin 31.8 pg (27.0-31.0); Mean Corpuscular Volume 92.9 fL (78.0-98.0); Platelet Count 216 thou/uL (130-400); RBC Distribution Width 11.8 % (11.5-14.5); Red Blood Cell (RBC) Count 3.88 mill/uL (4.20-5.40); White Blood Cell (WBC) Count 9.5 thou/uL (4.8-10.8)
[2019-08-24 05:06] LABS: Anion Gap 11 mmol/L (10-20); BUN (Urea Nitrogen) 8 mg/dL (9.8-20.1); Calc. Creatinine Clearance 117 mL/min (70-130); Calcium 8.4 mg/dL (7.8-10.44); Carbon Dioxide 23 mmol/L (22-29); Chloride 105 mmol/L (98-107); Estimated GFR-MDRD 85; Glucose 87 mg/dL (70-105); Potassium 3.4 mmol/L (3.5-5.1); Sodium 136 mmol/L (136-145)
[2019-08-24] MEDS ORDERED: Levothyroxine Sodium 100 MCG TAB PO SCH (06:00)
[2019-08-24] MEDS: Famotidine 20 MG TAB PO SCH (08:40)
[2019-08-24] MEDS: Lubiprostone 24 MCG CAP PO SCH (08:40)
[2019-08-24] MEDS: Topiramate 25 MG TAB PO SCH (08:40)
[2019-08-24] MEDS: busPIRone HCl 10 MG TAB PO SCH (08:41)
[2019-08-24] MEDS ORDERED: Aspirin 81 mg Enteric Coated Tablet PO SCH (09:00)
[2019-08-24] MEDS ORDERED: Enoxaparin Sodium 40 MG/0.4 ML SYRINGE SC SCH (09:00)
[2019-08-24] MEDS ORDERED: levETIRAcetam 500 MG TAB PO SCH ×2 (09:00→21:00)
--- NOTE | 2019-08-24 09:10 | CON ---
DATE OF CONSULTATION: 08/24/2019 CONSULTING PHYSICIAN: Hospitalist Service. IMPRESSION: 1. 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 2. Hypertension. PLAN: 1. Continue Keppra and Topamax. 2. Monitored this morning and discharged back to the [facility] this afternoon at your discretion. HISTORY OF PRESENT ILLNESS: Ms. Salazar is a 58-year-old woman, who came in with complaints of seizure. She reports that she has a sensation of dizziness prior to losing consciousness. It was witnessed by the nursing staff last night that she complained of dizziness, reached over and grabbed onto the bed rail and started to shake it. She closed her eyes while doing so. In the midst of this, she stopped shaking the bed and opened her eyes to see if anybody was watching. She noticed if the nurse was still standing there and then started to shake the bed again. There was no other events reported with this. She reportedly choked on some food in the emergency room necessitating her admission. She has not had any fever overnight. She is not complaining of any chest pain or shortness of breath. She reports being hungry and wanting to have something to eat. PAST HISTORY: Seizures and hypertension. MEDICATIONS: Reviewed. ALLERGIES: TYLENOL, BENZODIAZEPINES, AND PENICILLINS. SOCIAL HISTORY: She lives in a snf. There is no reported drug use. FAMILY HISTORY: Noncontributory. REVIEW OF SYSTEMS: Ten-system review of systems is otherwise negative. PHYSICAL EXAMINATION: GENERAL: She is a reasonably well-nourished, middle-aged woman, who appears much older than her stated age. VITAL SIGNS: Blood pressure 121/63, pulse 70, respirations 16, and temperature 98.4. HEENT: Pupils are equal and reactive. Conjunctivae are clear. Oropharynx clear. NECK: Supple. No lymphadenopathy. EXTREMITIES: No cyanosis or edema. NEUROLOGIC: She was alert and cooperative. Her speech is fluent and clear. There was no facial asymmetry. She had no focal motor deficits. There was no abnormal movements seen. Gait was not tested. LABORATORY STUDIES: Keppra level was 41. CBC, chemistry panel, and urinalysis were all unremarkable. There is no evidence of acidosis. Her prolactin level was 8.58. Most recent imaging was a CT of the brain done in 2017, which showed no intracranial abnormalities. SUMMARY: This is a 58-year-old woman, who had a witnessed pseudo-seizure last night. She seems to be compliant with her Keppra. There has been 500 mg dose adjustment made. Overall, the clinical picture is a bit suspect. I would monitor her this morning and discharge her back to the [facility] today. Job ID: [id number]
[2019-08-24 12:08] VITALS: BP 123/61; TEMP 98.5
[2019-08-24] MEDS: Sodium Chloride 1 GM TAB PO SCH (13:06)
[2019-08-24] MEDS ORDERED: Polyethylene Glycol 3350 17 GM Packet PO PRN (13:11)
[2019-08-24] MEDS ORDERED: PROVENTIL INHALER 6.7 G (200 INHALATIONS) INH PRN (13:11)
[2019-08-24] MEDS ORDERED: Lubiprostone 24 MCG CAP PO SCH (21:00)
[2019-08-24] MEDS ORDERED: Topiramate 25 MG TAB PO SCH (21:00)
[2019-08-24] MEDS ORDERED: Benztropine 1 MG TAB PO SCH (21:00)
[2019-08-24] MEDS ORDERED: Sodium Chloride 1 GM TAB PO SCH (21:00)
[2019-08-24] MEDS ORDERED: Melatonin 3 MG TAB PO SCH (21:00)
[2019-08-25] MEDS ORDERED: Fluticasone Propionate Nasal Spray 16 gm Bottle NASAL SCH (09:00)
[2019-08-25] MEDS ORDERED: Aspirin 81 mg Enteric Coated Tablet PO SCH (09:00)
--- NOTE | 2019-08-26 02:35 | DIS ---
DATE OF ADMISSION: 08/23/2019 DATE OF DISCHARGE: 08/24/2019 HOSPITAL COURSE: Ms. Salazar is a 58-year-old female with a medical history of seizure disorder but no seizure over the past 2 years, bipolar, and depression who presented for suspected seizure. Neurology was consulted and after workup, it was determined that the patient unlikely had a seizure but rather a pseudo-seizure, she was monitored overnight and there were no additional episodes. The patient was educated regarding her symptoms and was discharged hemodynamically stable. PHYSICAL EXAMINATION: VITAL SIGNS: Unremarkable. GENERAL: She was in no apparent distress. Alert and oriented x3. HEENT: PERRL. HEART: Regular rate and rhythm. No murmurs or gallops. LUNGS: Clear to auscultation bilaterally. No wheezing, crackles, or rhonchi. ABDOMEN: Soft, nontender. Normoactive bowel sounds. EXTREMITIES: No clubbing , cyanosis, or edema. NEUROLOGIC: Completely unremarkable in terms of sensation and strength throughout. PSYCHIATRIC: Alert and oriented to person and place but not to time. ASSESSMENT AND PLAN: Ms. Salazar is a 58-year-old female with history of seizure with no seizure for the past 2 years, bipolar disorder, and depression who presented with a pseudo-seizure. 1. Pseudo-seizure. The patient was evaluated by Neurology who determined that there was no reason for concern. She was monitored overnight and after she had no additional symptoms consistent with seizure, was discharged hemodynamically stable with no complaints. 2. Hypothyroidism. The patient was treated with her home dose of levothyroxine. 3. Bipolar and depression. The patient exhibited no signs of mood lability during her inpatient stay on her home medications. Job ID: [id number] [facility]
== END 2019-08-24 14:59 ==
LOC: ERS 13:00 → 2SE 19:22
PROVIDERS: ADMIT Emergency Medicine; ATTEND Emergency Medicine
DX: G40.909 Epilepsy, unspecified, not intractable, without status epilepticus (principal); J40 Bronchitis, not specified as acute or chronic; I10 Essential (primary) hypertension; E03.9 Hypothyroidism, unspecified; K21.9 Gastro-esophageal reflux disease without esophagitis; F71 Moderate intellectual disabilities; F31.9 Bipolar disorder, unspecified; F41.9 Anxiety disorder, unspecified; F17.210 Nicotine dependence, cigarettes, uncomplicated; Z79.51 Long term (current) use of inhaled steroids; Z79.82 Long term (current) use of aspirin; Z79.899 Other long term (current) drug therapy; Z86.19 Personal history of other infectious and parasitic diseases; Z88.0 Allergy status to penicillin; Z88.6 Allergy status to analgesic agent; Z88.8 Allergy status to other drugs, medicaments and biological substances
CPT/HCPCS: 36415; 80048; 80053; 80177; 81003; 83605; 84146; 85025; 93005; 96365; 96372; 96375; G0378; J1650; J1953

== ENCOUNTER 2019-08-24 21:21 | Emergency (ER) | payer MEDICARE, MEDICAID ==
[2019-08-24 22:54] LABS: #Basophils 0.1 thou/uL (0.0-0.2); #Eosinphils 0.2 thou/uL (0.0-0.7); #Lymphocytes 3.5 thou/uL (1.20-3.40); #Monocytes 0.5 thou/uL (0.11-0.59); #Neutrophils 5.5 thou/uL (1.40-6.50); %Basophils 1.2 % (0.0-1.0); %Eosinophils 1.9 % (0.0-10.0); %Lymphocytes 35.6 % (21.0-51.0); %Monocytes 4.8 % (0.0-10.0); %Neutrophils 56.5 % (42.0-75.0); Hemoglobin 12.1 g/dL (12.0-16.0); Mean Corpuscular HGB CONC 33.5 g/dL (32.0-36.0); Mean Corpuscular Hemoglobin 31.2 pg (27.0-31.0); Mean Corpuscular Volume 93.2 fL (78.0-98.0); Platelet Count 233 thou/uL (130-400); RBC Distribution Width 11.7 % (11.5-14.5); Red Blood Cell (RBC) Count 3.89 mill/uL (4.20-5.40); White Blood Cell (WBC) Count 9.8 thou/uL (4.8-10.8)
[2019-08-24 23:10] LABS: ALT (SGPT) 12 U/L (8-55); AST (SGOT) 15 U/L (5-34); Acetaminophen Less than 6.0 mcg/mL (10.0-30.0); Albumin 3.6 g/dL (3.5-5.0); Alcohol Less than 10 mg/dL (Less than 10); Alkaline Phosphatase 65 U/L (40-110); Anion Gap 14 mmol/L (10-20); BUN (Urea Nitrogen) 7 mg/dL (9.8-20.1); Bilirubin, Total 0.4 mg/dL (0.2-1.2); Calc. Creatinine Clearance 0 mL/min (70-130); Calcium 8.8 mg/dL (7.8-10.44); Carbon Dioxide 22 mmol/L (22-29); Chloride 104 mmol/L (98-107); Estimated GFR-MDRD 83; Globulin 2.7 g/dL (2.4-3.5); Glucose 94 mg/dL (70-105); Potassium 3.3 mmol/L (3.5-5.1); Protein, Total 6.3 g/dL (6.0-8.3); Salicylate Less than 8.0 mg/dL (15.0-30.0); Sodium 137 mmol/L (136-145)
[2019-08-24 23:21] LABS: Bilirubin Negative (Negative); Blood, Urine Negative (Negative); Clarity Clear (Clear); Glucose, Urine (Dipstick) Normal (Negative); Leukocyte Negative Leu/uL (Negative); Nitrite Negative (Negative); Protein, Urine (Dipstick) Negative (Neg-Trace); Urobilinogen Normal mg/dL (Less than 2)
--- NOTE | 2019-08-24 23:54 | RAD ---
EXAM: CHEST ONE VIEW HISTORY: Chest pain. Multiple seizures per family. COMPARISON: 08/22/2019 FINDINGS: The cardiac silhouette and pulmonary vasculature is within normal limits. There is a nodular parenchy mal opacity seen in the right hilar region which is not appreciated on the prior exam. This could be related to focal area of pneumonia or aspiration pneumonitis. Lungs otherwise appear clear. Vascul ar calcifications are seen in the thoracic aorta. No other interval change. IMPRESSION: Nodular parenchymal density right hilar region. This was not present on recent exam on 08/22/2019 and may represent focal area of pneumonia versus aspiration pneumonitis. Follow-up to resolution is recommended.
== END 2019-08-25 00:10 | disposition home or self-care (01) ==
LOC: ERS 21:21
DX: R55 Syncope and collapse (principal); I25.2 Old myocardial infarction; D64.9 Anemia, unspecified; I10 Essential (primary) hypertension; F41.9 Anxiety disorder, unspecified; F31.9 Bipolar disorder, unspecified; F17.210 Nicotine dependence, cigarettes, uncomplicated
CPT/HCPCS: 36415; 71045; 80307; 81003; 84146; 84484; 87804; 93005

== ENCOUNTER 2019-08-30 22:10 | Observation (INO) | payer MEDICARE, MEDICAID ==
[2019-08-30] MEDS ORDERED: Morphine 4 MG/ML VIAL ONE (23:00)
[2019-08-30 23:01] LABS: #Basophils 0.1 thou/uL (0.0-0.2); #Eosinphils 0.4 thou/uL (0.0-0.7); #Lymphocytes 3.1 thou/uL (1.20-3.40); #Monocytes 0.4 thou/uL (0.11-0.59); #Neutrophils 4.9 thou/uL (1.40-6.50); %Basophils 1.2 % (0.0-1.0); %Eosinophils 4.1 % (0.0-10.0); %Lymphocytes 34.8 % (21.0-51.0); %Monocytes 4.7 % (0.0-10.0); %Neutrophils 55.2 % (42.0-75.0); Hemoglobin 13.4 g/dL (12.0-16.0); Mean Corpuscular HGB CONC 33.4 g/dL (32.0-36.0); Mean Corpuscular Hemoglobin 31.7 pg (27.0-31.0); Mean Corpuscular Volume 94.9 fL (78.0-98.0); Mean Platelet Volume 6.9 fL (7.4-10.4); Platelet Count 214 thou/uL (130-400); RBC Distribution Width 11.9 % (11.5-14.5); Red Blood Cell (RBC) Count 4.22 mill/uL (4.20-5.40); White Blood Cell (WBC) Count 8.9 thou/uL (4.8-10.8)
--- NOTE | 2019-08-30 23:04 | RAD ---
XR Chest 1 View Portable HISTORY: Chest pain COMPARISON: 08/24/2019 exam. FINDINGS: Heart size is within normal limits. There are atherosclerotic changes of aorta. No focal in filtrates are seen. IMPRESSION: No active intrathoracic disease. Stable chest.
[2019-08-30 23:20] LABS: ALT (SGPT) 11 U/L (8-55); AST (SGOT) 14 U/L (5-34); Albumin 4.2 g/dL (3.5-5.0); Alkaline Phosphatase 71 U/L (40-110); Anion Gap 13 mmol/L (10-20); BUN (Urea Nitrogen) 9 mg/dL (9.8-20.1); Bilirubin, Total 0.3 mg/dL (0.2-1.2); CK (CPK) 96 U/L (29-168); Calc. Creatinine Clearance 0 mL/min (70-130); Calcium 9.2 mg/dL (7.8-10.44); Carbon Dioxide 22 mmol/L (22-29); Chloride 104 mmol/L (98-107); Estimated GFR-MDRD 70; Globulin 2.8 g/dL (2.4-3.5); Glucose 90 mg/dL (70-105); Potassium 3.8 mmol/L (3.5-5.1); Sodium 135 mmol/L (136-145)
[2019-08-31] MEDS ORDERED: Lidocaine Viscous Sol 2% 15 ml UD Cup ONE (00:21)
[2019-08-31] MEDS ORDERED: Mag-Al 1200 mg/1200 mg/30 ML UDCUP ONE (00:21)
[2019-08-31] MEDS ORDERED: Ondansetron ODT 4 MG TAB SL PRN (01:58)
[2019-08-31] MEDS ORDERED: Ondansetron PF 4 MG/2 ML Vial IVP PRN ×2 (01:58→07:29)
[2019-08-31 02:19] VITALS: BMI 28.0
[2019-08-31 02:39] LABS: Troponin I Less than 0.010 ng/mL (< 0.028)
[2019-08-31 05:44] LABS: Troponin I 0.012 ng/mL (< 0.028)
[2019-08-31] MEDS: Nitroglycerin 0.4 MG TAB (25 Tab Bottle) SL PRN ×3 (06:12→08:25)
[2019-08-31] MEDS ORDERED: Bisacodyl 5 MG TAB PO PRN (07:29)
[2019-08-31] MEDS ORDERED: Ondansetron ODT 4 MG TAB PO PRN (07:29)
[2019-08-31] MEDS ORDERED: Loperamide HCl 2 MG CAP PO PRN (07:29)
[2019-08-31] MEDS ORDERED: Melatonin 3 MG TAB PO PRN ×2 (07:32→19:06)
[2019-08-31] MEDS ORDERED: Benzonatate 100 MG CAP PO PRN (07:32)
[2019-08-31] MEDS ORDERED: Docusate 100 MG CAP PO PRN (07:32)
[2019-08-31] MEDS ORDERED: Labetalol HCl 100 MG/20 ML VIAL SLOW IVP PRN (07:32)
[2019-08-31] MEDS ORDERED: diphenhydrAMINE 25 MG CAP PO PRN (07:32)
[2019-08-31] MEDS: Morphine 2 MG/ML SYRINGE SLOW IVP PRN ×4 (09:01→22:44)
[2019-08-31] MEDS: Heparin 5,000 UNITS/ML VIAL SC SCH ×3 (10:12→21:03)
[2019-08-31] MEDS: Famotidine 20 MG TAB PO SCH ×2 (10:12→20:56)
[2019-08-31] MEDS ORDERED: Regadenoson 0.4 MG/5 ML SYRINGE ONE (13:10)
--- NOTE | 2019-08-31 15:34 | PDOC.HHP ---
Hospitalist HPI - History of Present Illness Chest pain History of Present Illness: 58-year-old female with past medical history of seizure disorder, bipolar, depression, tobacco use, and osteoarthritis presents with chest pain. Patient was recently discharged from [facility] for seizure type activity. Patient is chronic resident of [facility]. Patient tells me that she has had been having midsternal chest pain. Denies radiation to the back, jaw, or shoulder. No associated palpitations, nausea, vomiting, or diaphoresis. Patient states she has had stress test in the past and states that she had a mild heart attack in the past. Patient does not recall if she has ever had stent placed however. Patient breathing comfortably on room air. Patient continues to smoke cigarettes. Hospitalist ROS - Review of Systems All other systems reviewed; all pertinent +/- noted in HPI/Subj - Medication Medications: Active Medications Generic Name Dose Route Start Last Admin Trade Name Freq PRN Reason Stop Dose Admin Famotidine 20 mg 08/31/19 09:00 08/31/19 10:12 Pepcid PO 20 mg BID LILI Administration Heparin Sodium (Porcine) 5,000 units 08/31/19 09:00 08/31/19 10:12 Heparin SC 5,000 units TID LILI Administration Morphine Sulfate 2 mg 08/31/19 05:59 08/31/19 13:44 Morphine SLOW IVP 2 mg Q4H PRN Administration chest pain not relieved by NTG Nitroglycerin 0.4 mg 08/31/19 05:58 08/31/19 08:25 Nitrostat SL 1 tab Q5MIN PRN Administration Chest Pain Sodium Chloride 10 ml 08/31/19 09:00 08/31/19 10:58 Flush - Normal Saline IVF Not Given Q12HR [facility] Hospitalist History - Past Medical History Source: patient, old records Cardiac: reports: CAD, HTN 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: Seizure Psych: reports: Anxiety, Bipolar, Depression - Family History Family History: reports: hyperlipidemia, hypertension - Social History Smoking Status: Current every day smoker Tobacco Type: cigarettes Alcohol: reports: Rare Drugs: reports: none Living Situation: Other (shelter) Domestic Violence: Negative Activity level: independent ambulation - Exam General Appearance: NAD, awake alert Eye: PERRL, anicteric sclera ENT: normocephalic atraumatic, moist mucosa Neck: supple, symmetric, no lymphadenopathy Heart: no murmur, no gallops, no rubs Respiratory: CTAB, no wheezes, no rales, no ronchi, normal chest expansion, no tachypnea Gastrointestinal: soft, non-tender, no guarding, no rigidity Extremities: no edema Skin: no lesions, no rashes Neurological: cranial nerve grossly intact, no focal deficits Musculoskeletal: generalized weakness Psychiatric: normal affect, normal behavior, A&O x 3 Hospitalist Results - Labs Result Diagrams: 08/30/19 22:53 08/30/19 22:53 Lab results: WBC 8.9 thou/uL (4.8-10.8) 08/30/19 22:53 Hgb 13.4 g/dL (12.0-16.0) 08/30/19 22:53 Hct 40.1 % (36.0-47.0) 08/30/19 22:53 MCV 94.9 fL (78.0-98.0) 08/30/19 22:53 Plt Count 214 thou/uL (130-400) 08/30/19 22:53 Neutrophils % 55.2 % (42.0-75.0) 08/30/19 22:53 Sodium 135 mmol/L (136-145) L 08/30/19 22:53 Potassium 3.8 mmol/L (3.5-5.1) 08/30/19 22:53 Chloride 104 mmol/L (98-107) 08/30/19 22:53 Carbon Dioxide 22 mmol/L (22-29) 08/30/19 22:53 BUN 9 mg/dL (9.8-20.1) L 08/30/19 22:53 Creatinine 0.83 mg/dL (0.6-1.1) 08/30/19 22:53 Glucose 90 mg/dL (70-105) 08/30/19 22:53 Calcium 9.2 mg/dL (7.8-10.44) 08/30/19 22:53 Total Bilirubin 0.3 mg/dL (0.2-1.2) 08/30/19 22:53 AST 14 U/L (5-34) 08/30/19 22:53 ALT 11 U/L (8-55) 08/30/19 22:53 Alkaline Phosphatase 71 U/L (40-110) 08/30/19 22:53 Creatine Kinase 96 U/L (29-168) 08/30/19 22:53 Troponin I 0.012 ng/mL (< 0.028) 08/31/19 04:49 Serum Total Protein 7.0 g/dL (6.0-8.3) 08/30/19 22:53 Albumin 4.2 g/dL (3.5-5.0) 08/30/19 22:53
--- NOTE | 2019-08-31 15:54 | NM ---
NUCLEAR MEDICINE CARDIAC SPECT WITH EJECTION FRACTION AND WALL MOTION: Date: 08/31/2019 HISTORY: Chest pain. History of NM and CVA. Hypertension. Smoking. TECHNIQUE: Lexiscan cardiac SPECT. Patient was injected with 29.8 mCi technetium-99m sestamibi intravenously. Re sting images were obtained following 9 mCi technetium-99m sestamibi intravenously. FINDINGS: Multiple SPECT images in the short axis, vertical long axis, and horizontal long axis demonstrate no scan evidence for overt infarct or ischemia. TID: 1.0 LHR: 0.31 EDV: 90 mL EF: 62% MYOCARDIAL PERFUSION WALL MOTION: Wall motion is normal. IMPRESSION: Unremarkable cardiac SPECT with ejection fraction and wall motion. POS: OLENA
[2019-08-31] MEDS: levETIRAcetam 500 MG TAB PO SCH (20:55)
[2019-08-31] MEDS: busPIRone HCl 10 MG TAB PO SCH (20:55)
[2019-08-31] MEDS: Topiramate 25 MG TAB PO SCH (20:55)
[2019-08-31] MEDS: Lubiprostone 24 MCG CAP PO SCH (20:56)
[2019-08-31] MEDS: chlorproMAZINE HCl 25 MG TAB PO SCH (20:56)
[2019-08-31] MEDS: lamoTRIgine 25 MG TAB PO SCH (20:56)
[2019-08-31] MEDS ORDERED: Benztropine 1 MG TAB PO SCH (21:00)
[2019-09-01] MEDS: Morphine 2 MG/ML SYRINGE SLOW IVP PRN ×3 (05:25→15:00)
[2019-09-01 08:14] VITALS: TEMP 98.3
[2019-09-01] MEDS: busPIRone HCl 10 MG TAB PO SCH (09:47)
[2019-09-01] MEDS: chlorproMAZINE HCl 25 MG TAB PO SCH (09:48)
[2019-09-01] MEDS: Heparin 5,000 UNITS/ML VIAL SC SCH ×2 (09:48→15:55)
[2019-09-01] MEDS: Famotidine 20 MG TAB PO SCH (09:48)
[2019-09-01] MEDS: lamoTRIgine 25 MG TAB PO SCH (09:48)
[2019-09-01] MEDS: Lubiprostone 24 MCG CAP PO SCH (09:49)
[2019-09-01] MEDS: Topiramate 25 MG TAB PO SCH (09:49)
[2019-09-01] MEDS: levETIRAcetam 500 MG TAB PO SCH (09:49)
[2019-09-01 11:57] VITALS: BP 112/77
--- NOTE | 2019-09-01 13:15 | CT ---
CHEST CT ANGIOGRAM WITH 3D RENDERING: HISTORY: Chest pain when breathing. Elevated D-dimer. FINDINGS: No convincing CT evidence for acute pulmonary embolism. There are some bilateral posterior pleural th ickening changes and some pleural-based linear parenchymal changes, having more the appearance of chr onic change versus subsegmental atelectasis or less likely mild pneumonitis. Multiple healed primaril y right sided rib fractures. No pericardial effusion. No acute pleural effusion. Three vessel coronar y artery calcific changes. Evidence for borderline splenomegaly and hepatomegaly. No evidence for aor tic aneurysm. IMPRESSION: 1. No convincing CT evidence for acute pulmonary embolism. 2. Bilateral posterior pleural thickening and pleural-based mostly linear parenchymal changes. 3. Healed rib fractures. 4. Other findings as above. POS: OLENA
[2019-09-01] MEDS ORDERED: Iopamidol-370 76% 500 ML 1 ML ONE (14:57)
--- NOTE | 2019-09-02 00:33 | DIS ---
DATE OF ADMISSION: 08/31/2019 DATE OF DISCHARGE: 09/01/2019 REASON FOR HOSPITALIZATION: Chest pain. SIGNIFICANT FINDINGS: The patient was found to have a negative evaluation for cardiac and pulmonary causes of chest pain and she was diagnosed with pleurisy. The patient has been suffering from bronchitis in the outpatient setting and finishing antibiotics, that in addition to chronic lung changes seen on the CT scan of the lungs in a setting of a tobacco user who is currently smoking. Has caused this patient to have pleuritic-type chest discomfort that is worse with deep inspiration. PROCEDURES PERFORMED AND TREATMENTS RENDERED: The patient was admitted to the medical unit with telemetry for close management. There were no appreciated rhythm abnormalities throughout her hospitalization. The patient had nuclear medicine stress test, please see full report for details, there was no reversible ischemia identified. The patient had a CT angiography of the chest-please see full report for details-there is no acute cardiothoracic process though there are chronic pulmonary changes consistent with her extensive tobacco use history and bronchitis. There is no focal pneumonia or other acute cardiothoracic process. The patient's metabolic workup was otherwise benign. The patient was recommended safe for discharge back to [facility] where she is a chronic resident. The patient recommended nonsteroidal anti-inflammatory drugs as needed for pleuritic chest pain. CONDITION ON DISCHARGE: Stable. SPECIFIC INSTRUCTIONS FOR THE PATIENT/FAMILY: 1. The patient recommended to take all medications as directed. 2. The patient recommended to follow up with primary care physician in the next 5 to 7 days. 3. The patient recommended follow up with psychiatric physician in the next 3 to 4 weeks. 4. The patient recommended to follow up with neurologist in the next 3 to 4 weeks. 5. The patient is recommended to return to acute care hospital immediately if signs or symptoms return, worsen, or any other new symptoms occur. DISCHARGE MEDICATIONS: Please see full discharge medication list for details. 1. Geodon 160 mg p.o. at bedtime. 2. BuSpar 30 mg p.o. b.i.d. 3. Chlorpromazine 25 mg p.o. b.i.d. 4. Mirtazapine 30 mg p.o. daily. 5. Prazosin 2 mg p.o. daily. 6. Lamotrigine 25 mg p.o. b.i.d. 7. Cogentin 1 mg p.o. at bedtime. 8. Ventolin HFA inhaler 2 puffs p.o. q.4 hours p.r.n. shortness of breath or wheezing. 9. Synthroid 100 mcg 1 tablet p.o. daily. 10. Omeprazole 20 mg 1 tablet p.o. daily. 11. Topiramate 50 mg 1 tablet p.o. b.i.d. 12. Amitiza 25 mcg 1 p.o. b.i.d. 13. Keppra 1500 mg p.o. b.i.d. 14. Melatonin 10 mg p.o. at bedtime p.r.n. insomnia. 15. MiraLAX 17 g p.o. daily p.r.n. constipation. Greater than 35 minutes spent coordinating care and discharge process for this patient. Job ID: [id number]
== END 2019-09-01 15:27 | disposition home or self-care (01) ==
LOC: ERS 22:10 → 2SW 08-31 01:18
PROVIDERS: ADMIT Internal Medicine; ATTEND Internal Medicine
DX: J40 Bronchitis, not specified as acute or chronic (principal); F17.210 Nicotine dependence, cigarettes, uncomplicated; G40.909 Epilepsy, unspecified, not intractable, without status epilepticus; F31.9 Bipolar disorder, unspecified; E03.9 Hypothyroidism, unspecified; I10 Essential (primary) hypertension; I25.10 Atherosclerotic heart disease of native coronary artery without angina pectoris; I25.2 Old myocardial infarction; F41.9 Anxiety disorder, unspecified; M19.90 Unspecified osteoarthritis, unspecified site; Z79.82 Long term (current) use of aspirin; Z79.899 Other long term (current) drug therapy; Z88.0 Allergy status to penicillin; Z88.6 Allergy status to analgesic agent; Z88.8 Allergy status to other drugs, medicaments and biological substances
CPT/HCPCS: 71045; 71275; 78452; 80053; 82550; 84484 ×3; 85025; 85379; 93005; 93017; 96361; 96372; 96374; 96376 ×2; 97116; 97139; 99285; A9500; G0378 ×3; 36415; J1644; J2270; J2785; Q0161; Q9967

== ENCOUNTER 2019-09-02 19:34 | Emergency (ER) | payer MEDICARE, MEDICAID ==
--- NOTE | 2019-09-02 20:11 | RAD ---
Chest AP view INDICATION: Chest pain COMPARISON: CT PE examination dated September 01, 2019 and chest radiograph dated August 30, 2019 FINDINGS: Lungs:The lungs are clear Cardiac silhouette:The cardiomediastinal silhouette appears within normal limits. Pulmonary vasculature:Normal Pleural spaces:No pleural effusion or pneumothorax is demonstrated. Upper abdomen:No abnormality seen. Osseous structures: No acute osseous abnormality. Additional findings:None. IMPRESSION: No acute cardiopulmonary abnormality.
[2019-09-02 20:15] LABS: Hemoglobin 12.5 g/dL (12.0-16.0); Mean Corpuscular HGB CONC 34.5 g/dL (32.0-36.0); Mean Corpuscular Hemoglobin 32.5 pg (27.0-31.0); Mean Corpuscular Volume 94.3 fL (78.0-98.0); Mean Platelet Volume 7.5 fL (7.4-10.4); Platelet Count 182 thou/uL (130-400); RBC Distribution Width 11.8 % (11.5-14.5); Red Blood Cell (RBC) Count 3.85 mill/uL (4.20-5.40); White Blood Cell (WBC) Count 6.6 thou/uL (4.8-10.8)
[2019-09-02 20:33] LABS: Band 7 % (5-11); Eosinophils 5 % (0-10); Lymphocytes 22 % (21-51); MDiff Complete? YES; Monocytes 3 % (0-10); Neutrophil 56 % (42-75); Platelet Morphology Comment Appears Adequate; Polychromasia SLIGHT = 2-3 cells (100X) (0-2/hpf); Reactive Lymphocytes 7 % (0-10)
[2019-09-02 20:38] LABS: ALT (SGPT) 21 U/L (8-55); AST (SGOT) 24 U/L (5-34); Albumin 3.8 g/dL (3.5-5.0); Alkaline Phosphatase 97 U/L (40-110); Anion Gap 14 mmol/L (10-20); BUN (Urea Nitrogen) 9 mg/dL (9.8-20.1); Bilirubin, Total 0.2 mg/dL (0.2-1.2); Calc. Creatinine Clearance 0 mL/min (70-130); Calcium 8.7 mg/dL (7.8-10.44); Carbon Dioxide 21 mmol/L (22-29); Chloride 103 mmol/L (98-107); Estimated GFR-MDRD 61; Globulin 2.8 g/dL (2.4-3.5); Glucose 99 mg/dL (70-105); Potassium 4.1 mmol/L (3.5-5.1); Protein, Total 6.6 g/dL (6.0-8.3); Sodium 134 mmol/L (136-145)
[2019-09-02] MEDS ORDERED: Ketorolac Tromethamine 30 MG/ML VIAL ONE (22:02)
== END 2019-09-02 23:33 | disposition home or self-care (01) ==
LOC: ERS 19:34
DX: R07.89 Other chest pain (principal); I25.2 Old myocardial infarction; D64.9 Anemia, unspecified; G40.909 Epilepsy, unspecified, not intractable, without status epilepticus; I10 Essential (primary) hypertension; G47.00 Insomnia, unspecified; J45.909 Unspecified asthma, uncomplicated; G43.909 Migraine, unspecified, not intractable, without status migrainosus; F20.9 Schizophrenia, unspecified; F41.9 Anxiety disorder, unspecified; F31.9 Bipolar disorder, unspecified; F17.210 Nicotine dependence, cigarettes, uncomplicated; Z86.73 Personal history of transient ischemic attack (TIA), and cerebral infarction without residual deficits; Z79.891 Long term (current) use of opiate analgesic; Z79.82 Long term (current) use of aspirin; Z79.899 Other long term (current) drug therapy
CPT/HCPCS: 36415; 71045; 80053; 84484; 85025; 93005; 96372; J1885

== ENCOUNTER 2019-09-08 21:43 | Emergency (ER) | payer MEDICAID, MEDICARE ==
[2019-09-08] MEDS ORDERED: Ketorolac Tromethamine 30 MG/ML VIAL ONE (22:01)
== END 2019-09-08 22:33 | disposition home or self-care (01) ==
LOC: ERS 21:43
DX: M94.0 Chondrocostal junction syndrome [Tietze] (principal); I25.2 Old myocardial infarction; D64.9 Anemia, unspecified; I10 Essential (primary) hypertension; E03.9 Hypothyroidism, unspecified; G47.00 Insomnia, unspecified; J45.909 Unspecified asthma, uncomplicated; G43.909 Migraine, unspecified, not intractable, without status migrainosus; F41.9 Anxiety disorder, unspecified; F31.9 Bipolar disorder, unspecified; F20.9 Schizophrenia, unspecified; F17.210 Nicotine dependence, cigarettes, uncomplicated; G40.909 Epilepsy, unspecified, not intractable, without status epilepticus; Z86.73 Personal history of transient ischemic attack (TIA), and cerebral infarction without residual deficits; Z79.899 Other long term (current) drug therapy
CPT/HCPCS: 93005; 96374; J1885

== ENCOUNTER 2020-02-19 16:41 | Emergency (ER) | payer MEDICARE, MEDICAID | END 2020-02-19 19:55 | disposition home or self-care (01) | LOC: ERS 16:41 | DX: I88.9 Nonspecific lymphadenitis, unspecified (principal); I25.2 Old myocardial infarction; I10 Essential (primary) hypertension; F17.210 Nicotine dependence, cigarettes, uncomplicated; Z79.899 Other long term (current) drug therapy | CPT/HCPCS: 99283 ==

== ENCOUNTER 2020-05-15 15:22 | Emergency (ER) | payer MEDICARE, MEDICAID ==
[2020-05-15 16:18] LABS: #Eosinphils 0.3 thou/uL (0.0-0.7); #Lymphocytes 2.7 thou/uL (1.20-3.40); #Monocytes 0.3 thou/uL (0.11-0.59); #Neutrophils 3.1 thou/uL (1.40-6.50); %Basophils 0.4 % (0.0-1.0); %Eosinophils 4.5 % (0.0-10.0); %Lymphocytes 42.1 % (21.0-51.0); %Monocytes 4.6 % (0.0-10.0); %Neutrophils 48.3 % (42.0-75.0); Mean Corpuscular HGB CONC 35.1 g/dL (32.0-36.0); Mean Corpuscular Hemoglobin 32.8 pg (27.0-31.0); Mean Corpuscular Volume 93.4 fL (78.0-98.0); Mean Platelet Volume 7.5 fL (7.4-10.4); Platelet Count 206 thou/uL (130-400); RBC Distribution Width 11.2 % (11.5-14.5); Red Blood Cell (RBC) Count 3.97 mill/uL (4.20-5.40); White Blood Cell (WBC) Count 6.4 thou/uL (4.8-10.8)
[2020-05-15 16:41] LABS: ALT (SGPT) 9 U/L (8-55); AST (SGOT) 11 U/L (5-34); Albumin 3.6 g/dL (3.4-4.8); Alkaline Phosphatase 47 U/L (40-110); Anion Gap 11 mmol/L (10-20); BUN (Urea Nitrogen) 7 mg/dL (9.8-20.1); Bilirubin, Total 0.2 mg/dL (0.2-1.2); Calc. Creatinine Clearance 0 mL/min (70-130); Calcium 9.6 mg/dL (7.8-10.44); Carbon Dioxide 21 mmol/L (23-31); Chloride 106 mmol/L (98-107); Estimated GFR-MDRD 82; Globulin 2.8 g/dL (2.4-3.5); Glucose 116 mg/dL (80-115); Potassium 3.6 mmol/L (3.5-5.1); Protein, Total 6.4 g/dL (6.0-8.3); Sodium 134 mmol/L (136-145)
[2020-05-15 18:06] LABS: Bacteria/HPF 4+ HPF (None Seen); Bilirubin Negative (Negative); Blood, Urine Negative (Negative); Clarity Turbid (Clear); Glucose, Urine (Dipstick) Normal (Negative); Ketone, Urine Negative (Negative); Leukocyte 500 Leu/uL (Negative); Nitrite 2+ (Negative); Protein, Urine (Dipstick) Negative (Neg-Trace); Specific Gravity, Urine 1.008 (1.002-1.036); Squamous Epithelial 0-3 HPF (0-3); Urobilinogen Normal mg/dL (Less than 2); WBC/HPF Greater than 50 HPF (0-3)
[2020-05-19 14:38] LABS: Topiramate (Topamax) Test 3.6 ug/mL (2.0-25.0)
== END 2020-05-15 19:03 | disposition home or self-care (01) ==
LOC: ERS 15:22
DX: G40.909 Epilepsy, unspecified, not intractable, without status epilepticus (principal); N39.0 Urinary tract infection, site not specified; I25.2 Old myocardial infarction; D64.9 Anemia, unspecified; I10 Essential (primary) hypertension; E03.9 Hypothyroidism, unspecified; G47.00 Insomnia, unspecified; J45.909 Unspecified asthma, uncomplicated; G43.909 Migraine, unspecified, not intractable, without status migrainosus; B19.20 Unspecified viral hepatitis C without hepatic coma; F20.9 Schizophrenia, unspecified; F31.9 Bipolar disorder, unspecified; F41.9 Anxiety disorder, unspecified; F17.210 Nicotine dependence, cigarettes, uncomplicated; Z86.73 Personal history of transient ischemic attack (TIA), and cerebral infarction without residual deficits; Z79.899 Other long term (current) drug therapy; Z79.82 Long term (current) use of aspirin
CPT/HCPCS: 36415; 80053; 80201; 81003; 81015; 85025; 99284

== ENCOUNTER 2020-05-16 11:22 | Emergency (ER) | payer MEDICARE, MEDICAID ==
[2020-05-16 12:27] LABS: #Basophils 0.1 thou/uL (0.0-0.2); #Eosinphils 0.3 thou/uL (0.0-0.7); #Lymphocytes 2.3 thou/uL (1.20-3.40); #Monocytes 0.3 thou/uL (0.11-0.59); %Basophils 0.9 % (0.0-1.0); %Eosinophils 5.1 % (0.0-10.0); %Monocytes 4.9 % (0.0-10.0); %Neutrophils 51.3 % (42.0-75.0); Hemoglobin 12.8 g/dL (12.0-16.0); Mean Corpuscular HGB CONC 34.9 g/dL (32.0-36.0); Mean Corpuscular Hemoglobin 32.6 pg (27.0-31.0); Mean Corpuscular Volume 93.4 fL (78.0-98.0); Mean Platelet Volume 7.7 fL (7.4-10.4); Platelet Count 190 thou/uL (130-400); RBC Distribution Width 11.2 % (11.5-14.5); Red Blood Cell (RBC) Count 3.91 mill/uL (4.20-5.40); White Blood Cell (WBC) Count 5.9 thou/uL (4.8-10.8)
--- NOTE | 2020-05-16 12:28 | RAD ---
Exam:Right ankle 3 view HISTORY: Fall. Pain. COMPARISON: None FINDINGS: Diffuse bone demineralization. Preserved joint spaces. No fracture. No significant soft tis eddie swelling. IMPRESSION: No fracture.
[2020-05-16 12:58] LABS: ALT (SGPT) 8 U/L (8-55); AST (SGOT) 10 U/L (5-34); Albumin 3.6 g/dL (3.4-4.8); Alkaline Phosphatase 42 U/L (40-110); Anion Gap 9 mmol/L (10-20); BUN (Urea Nitrogen) 5 mg/dL (9.8-20.1); Bilirubin, Total 0.4 mg/dL (0.2-1.2); Calc. Creatinine Clearance 0 mL/min (70-130); Calcium 9.5 mg/dL (7.8-10.44); Carbon Dioxide 25 mmol/L (23-31); Chloride 105 mmol/L (98-107); Estimated GFR-MDRD 88; Globulin 2.7 g/dL (2.4-3.5); Glucose 94 mg/dL (80-115); Potassium 3.9 mmol/L (3.5-5.1); Protein, Total 6.3 g/dL (6.0-8.3); Sodium 135 mmol/L (136-145)
--- NOTE | 2020-05-16 13:04 | CT ---
CT Brain WO Con History: Seizures Comparison: CT brain 2017 Findings: No acute hemorrhage or infarct. No midline shift or mass effect. Ventricular size and extra -axial CSF spaces are normal. Program is intact. Paranasal sinuses and mastoids are relatively clear. Impression: No acute intracranial abnormality.
== END 2020-05-16 14:35 | disposition home or self-care (01) ==
LOC: ERS 11:22
DX: G40.909 Epilepsy, unspecified, not intractable, without status epilepticus (principal); M25.572 Pain in left ankle and joints of left foot; I25.2 Old myocardial infarction; D64.9 Anemia, unspecified; I10 Essential (primary) hypertension; E03.9 Hypothyroidism, unspecified; F31.9 Bipolar disorder, unspecified; F41.9 Anxiety disorder, unspecified; F17.210 Nicotine dependence, cigarettes, uncomplicated; G47.00 Insomnia, unspecified; F20.9 Schizophrenia, unspecified; Z79.82 Long term (current) use of aspirin; Z79.899 Other long term (current) drug therapy
CPT/HCPCS: 70450; 80053; 84146; 84484; 85025; 93005; 94760

== ENCOUNTER 2020-09-22 10:01 | Inpatient (IN) | payer MEDICARE, MEDICAID ==
[2020-09-22] MEDS ORDERED: Ondansetron PF 4 MG/2 ML Vial ONE (10:46)
[2020-09-22] MEDS ORDERED: Morphine 4 MG/ML VIAL ONE ×2 (10:46→12:30)
--- NOTE | 2020-09-22 11:15 | CT ---
Head CT without contrast 09/22/2020: COMPARISON: 05/16/2020 HISTORY: Fall, right-sided head trauma TECHNIQUE: Axial CT imaging at 2.5 mm intervals from vertex through skull base without contrast. [place] nal and sagittal reformatted imaging obtained. FINDINGS: The visualized paranasal sinuses and mastoid air cells are well-aerated. There is no displaced calvarial fracture, intracranial hemorrhage, midline shift, or mass effect. IMPRESSION: No displaced fracture or intracranial hemorrhage.
--- NOTE | 2020-09-22 11:31 | RAD ---
XR Hip Rt 2-3 View History: Pain. Fall Comparison: None. Findings: Right mid cervical femoral neck fracture with 2 cm foreshortening. Right obturator ring is intact. Impression: Mid cervical right femoral neck fracture.
--- NOTE | 2020-09-22 11:50 | RAD ---
Exam: XR Knee Rt 4 View STANDARD HISTORY: Trauma to right knee. Injury after fall. COMPARISON: None FINDINGS: No acute fracture, dislocation, or other acute osseous abnormality is identified. There is a linear density overlying region of the intracondylar notch related to osteophyte arising f rom the medial femoral condyle. IMPRESSION: No acute osseous abnormality is identified. If there is persistent pain or concern for internal deran gement, MRI right knee is suggested for further evaluation.
[2020-09-22] MEDS ORDERED: traMADol HCl 50 MG TAB PO PRN (12:02)
--- NOTE | 2020-09-22 12:31 | RAD ---
Portable frontal chest radiograph: 09/22/2020 COMPARISON: 09/02/2019 HISTORY: Fall, trauma, pain, preoperative patient FINDINGS: Supine imaging limits assessment for pneumothorax and pleural fluid. Heart and mediastinal contours are unremarkable. There is increased linear interstitial density with no focal consolidation or alveolar edema. IMPRESSION: No acute findings.
[2020-09-22 12:39] LABS: #Eosinphils 0.2 thou/uL (0.0-0.7); #Lymphocytes 2.1 thou/uL (1.20-3.40); #Monocytes 0.5 thou/uL (0.11-0.59); #Neutrophils 7.2 thou/uL (1.40-6.50); %Basophils 0.3 % (0.0-1.0); %Eosinophils 1.7 % (0.0-10.0); %Lymphocytes 21.3 % (21.0-51.0); %Monocytes 4.8 % (0.0-10.0); Mean Corpuscular HGB CONC 34.9 g/dL (32.0-36.0); Mean Corpuscular Volume 94.6 fL (78.0-98.0); Mean Platelet Volume 7.5 fL (7.4-10.4); Platelet Count 166 thou/uL (130-400); RBC Distribution Width 11.3 % (11.5-14.5); Red Blood Cell (RBC) Count 4.23 mill/uL (4.20-5.40)
[2020-09-22 12:51] LABS: PTT 34.4 sec (22.9-36.1); Prothrombin Time 13.5 sec (12.0-14.7)
[2020-09-22 13:04] LABS: ALT (SGPT) 48 U/L (8-55); AST (SGOT) 79 U/L (5-34); Alkaline Phosphatase 73 U/L (40-110); Anion Gap 10 mmol/L (10-20); BUN (Urea Nitrogen) 15 mg/dL (9.8-20.1); Bilirubin, Total 0.4 mg/dL (0.2-1.2); Calc. Creatinine Clearance 0 mL/min (70-130); Calcium 9.4 mg/dL (7.8-10.44); Carbon Dioxide 28 mmol/L (23-31); Chloride 99 mmol/L (98-107); Globulin 3.1 g/dL (2.4-3.5); Glucose 103 mg/dL (80-115); Potassium 3.8 mmol/L (3.5-5.1); Protein, Total 7.1 g/dL (5.8-8.1); Sodium 133 mmol/L (136-145)
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
[2020-09-22] MEDS ORDERED: Ibuprofen 200 MG TAB ONE (14:01)
[2020-09-22] MEDS: Ibuprofen 600 MG TAB PO SCH ×2 (14:03→21:00)
--- NOTE | 2020-09-22 14:30 | HP ---
REQUESTING PHYSICIAN: Dr. Mckeon. ATTENDING SURGEON: Dr. Hooks. CONSULTATIONS: Orthopedics, Dr. Moy. HISTORY OF PRESENT ILLNESS: The patient is a 59-year-old woman, who was ambulating outside when she tripped over the ledge of the door, landing on her right hip. She denies any loss of consciousness. Her chief complaint only is right hip pain. The patient normally ambulates with a walker. She has right-sided deficit due to previous CVA. The patient was brought to the emergency department, where she underwent evaluation and examination and was noted to have a right femoral neck fracture, at which time we were asked to evaluate the patient for admission and obtain orthopedic consultation. ALLERGIES: TYLENOL, BENZODIAZEPINES, AND PENICILLIN. CURRENT MEDICATIONS: 1. Buspirone. 2. Lorazepam. 3. Benztropine. 4. Levothyroxine. 5. Baby aspirin. 6. Fluticasone nasal spray. 7. Meloxicam. 8. Omeprazole. 9. Amitiza. 10. Chlorpromazine. 11. Lamotrigine. 12. Keppra. 13. Topiramate. 14. Triamcinolone. 15. Latuda. 16. Trazodone. PAST MEDICAL HISTORY: Myocardial infarction, chronic anemia, epilepsy, hypertension, heart murmur, hep C, hypothyroidism, insomnia, asthma, migraines, CVA with right-sided deficit, anxiety, bipolar disorder, depression, and schizophrenia. PAST SURGICAL HISTORY: Hysterectomy, appendectomy, cholecystectomy, left ankle surgery, back surgery, and tonsillectomy. SOCIAL HISTORY: The patient lives at a [facility]. She has a legal guardian by the name of Laine Ramos. She is the [id number], her phone number is [phone]. The patient is a previous drug user, which she reports primarily is cocaine. Smokes cigarettes daily less than half a pack per day. REVIEW OF SYSTEMS: A 10-point review of systems is otherwise negative. PHYSICAL EXAMINATION: VITAL SIGNS: Blood pressure 127/77, heart rate 83, respirations 18, oxygen saturation 95% on room air, and temperature 98.3. GENERAL: The patient is resting in the ER bed. She has just been medicated, which she reports has helped her significantly. HEENT: Head is normocephalic and atraumatic. Eyes, extraocular motion intact. PERRLA bilaterally. Ears are atraumatic without discharge. Nose is atraumatic without discharge. Oropharynx is clear. NECK: Nontender. Trachea is midline with no JVD. CHEST: Scant rhonchi that did clear with cough. HEART: Regular rate and rhythm. ABDOMEN: Soft, nontender with active bowel sounds. EXTREMITIES: Neurovascularly intact x4. PELVIS: Stable with tenderness to palpation to the right hip consistent with her fracture. BACK: By report is atraumatic and nontender. LABORATORY FINDINGS: White blood cell count 10.0, hemoglobin 14.0, hematocrit 40.0, platelets 166. Sodium 133, potassium 3.8, chloride 99, CO2 of 28, BUN 15, creatinine 0.65, glucose 103. LFTs are unremarkable. INR 1.0. COVID test is pending. RADIOGRAPHS: CT of the brain without contrast shows no displaced fracture or cranial hemorrhage. AP chest x-ray shows no acute findings. Views of the right hip show a mid cervical right femoral neck fracture. Views of the right knee show no acute osseous abnormality. ASSESSMENT AND PLAN: 1. Status post ground level fall. 2. Right femoral neck fracture. 3. Acute pain secondary to above. 4. History of bipolar disorder, schizophrenia, coronary artery disease, hypertension, CVA, seizure disorder. PLAN: Plan will be to admit the patient to the surgical floor. We will make her n.p.o. after midnight. She was evaluated in the emergency department by Orthopedics, who plan on taking her to the operating room tomorrow. We will do pain control, pulmonary toilet, gastritis and mechanical VTE prophylaxis. The patient was discussed with Dr. Hooks prior to this dictation. Job ID: [id number]
[2020-09-22] MEDS ORDERED: Dextrose 5% in Water 1,000 ML IV PRN (16:39)
[2020-09-22] MEDS ORDERED: hydrALAZINE 20 MG/ML VIAL SLOW IVP PRN (16:39)
[2020-09-22] MEDS ORDERED: Dextrose 50% Abboject 50 ML SYRINGE SLOW IVP PRN (16:39)
[2020-09-22] MEDS ORDERED: Ondansetron PF 4 MG/2 ML Vial IVP PRN (16:39)
[2020-09-22] MEDS ORDERED: Ondansetron ODT 4 MG TAB PO PRN (16:39)
[2020-09-22] MEDS ORDERED: traMADol HCl 50 MG TAB PO SCH (18:00)
[2020-09-22] MEDS ORDERED: Acetaminophen 500 MG TAB PO SCH (18:00)
[2020-09-22] MEDS: Morphine 2 MG/ML VIAL SLOW IVP PRN ×3 (18:10→23:33)
[2020-09-22] MEDS: Gabapentin 100 MG CAP PO SCH ×2 (18:13→20:35)
[2020-09-22 18:28] VITALS: BMI 24.9
[2020-09-22] MEDS: Docusate 100 MG CAP PO SCH (20:35)
[2020-09-22] MEDS: Famotidine/PF 20 mg/2ml Vial SLOW IVP SCH (20:35)
[2020-09-22 22:51] LABS: SARS-CoV-2 PCR by NAA Not Detected (NotDetected)
[2020-09-22] MEDS: Sodium Chloride 0.9% 1,000 ML IV SCH (23:34)
[2020-09-23] MEDS: Morphine 2 MG/ML VIAL SLOW IVP PRN ×4 (04:59→23:48)
[2020-09-23] MEDS: Ibuprofen 600 MG TAB PO SCH ×3 (05:00→21:21)
[2020-09-23 06:10] LABS: #Eosinphils 0.5 thou/uL (0.0-0.7); #Lymphocytes 1.4 thou/uL (1.20-3.40); #Monocytes 0.4 thou/uL (0.11-0.59); %Basophils 0.7 % (0.0-1.0); %Eosinophils 7.2 % (0.0-10.0); %Lymphocytes 22.7 % (21.0-51.0); %Monocytes 6.4 % (0.0-10.0); Hemoglobin 12.4 g/dL (12.0-16.0); Mean Corpuscular HGB CONC 34.1 g/dL (32.0-36.0); Mean Corpuscular Volume 93.7 fL (78.0-98.0); Mean Platelet Volume 7.5 fL (7.4-10.4); Platelet Count 152 thou/uL (130-400); RBC Distribution Width 11.4 % (11.5-14.5); Red Blood Cell (RBC) Count 3.88 mill/uL (4.20-5.40); White Blood Cell (WBC) Count 6.4 thou/uL (4.8-10.8)
[2020-09-23 06:24] LABS: Phosphorus 2.9 mg/dL (2.3-4.7)
[2020-09-23 06:44] LABS: Bilirubin, Total 0.9 mg/dL (0.2-1.2)
[2020-09-23 06:45] LABS: ALT (SGPT) 157 U/L (8-55); AST (SGOT) 121 U/L (5-34); Albumin 3.5 g/dL (3.4-4.8); Alkaline Phosphatase 76 U/L (40-110); Anion Gap 10 mmol/L (10-20); BUN (Urea Nitrogen) 9 mg/dL (9.8-20.1); Calc. Creatinine Clearance 106 mL/min (70-130); Calcium 8.6 mg/dL (7.8-10.44); Carbon Dioxide 23 mmol/L (23-31); Chloride 106 mmol/L (98-107); Globulin 2.6 g/dL (2.4-3.5); Glucose 94 mg/dL (80-115); Magnesium 1.8 mg/dL (1.6-2.6); Potassium 3.8 mmol/L (3.5-5.1); Protein, Total 6.1 g/dL (5.8-8.1); Sodium 135 mmol/L (136-145)
[2020-09-23] MEDS: Cyclobenzaprine 10 MG TAB PO PRN ×2 (07:08→22:39)
[2020-09-23] MEDS: Sodium Chloride 0.9% 1,000 ML IV SCH (07:08)
[2020-09-23] MEDS ORDERED: Clindamycin/D5W 900 MG in Premix Bag 1 BAG IVPB SCH ×2 (07:30→15:22)
[2020-09-23] MEDS ORDERED: Potassium Phosphate 15 MMOL, Magnesium Sulfate 2 GM in Sodium Chloride 0.9% 250 ML 250 ML IVPB SCH (08:30)
[2020-09-23] MEDS: Docusate 100 MG CAP PO SCH ×2 (08:35→20:06)
[2020-09-23] MEDS: Gabapentin 100 MG CAP PO SCH ×3 (08:35→20:05)
[2020-09-23] MEDS: Famotidine/PF 20 mg/2ml Vial SLOW IVP SCH ×2 (08:36→20:05)
[2020-09-23] MEDS ORDERED: FLU VACC QS2020-21(6MOS UP)/PF 60 MCG/0.5 ML SYRINGE IM ONE (09:00)
[2020-09-23] MEDS ORDERED: Metoclopramide HCl 10 MG/2 ML VIAL ONE (10:05)
[2020-09-23] MEDS ORDERED: Ondansetron PF 4 MG/2 ML Vial ONE (10:05)
[2020-09-23] MEDS ORDERED: Rocuronium Bromide 10 MG/ML (10ML VIAL) ONE (10:05)
[2020-09-23] MEDS ORDERED: Dexamethasone 20 MG/5 ML VIAL ONE (10:05)
[2020-09-23] MEDS ORDERED: PROPOFOL 200 MG/20 ML VIAL ONE (10:05)
[2020-09-23] MEDS ORDERED: Ketorolac Tromethamine 30 MG/ML VIAL ONE (10:05)
[2020-09-23] MEDS ORDERED: Lidocaine 1% PF 5 ML VIAL ONE (10:05)
[2020-09-23] MEDS ORDERED: PHENYLEPHRINE-NS 100 MCG/ML 10 ML SYRINGE ONE (10:05)
[2020-09-23] MEDS ORDERED: Neomycin-Polymyxin 1 ML AMP ONE (10:54)
[2020-09-23] MEDS ORDERED: Clindamycin/D5W 900 mg/50 ml Premix Bag ONE (11:10)
[2020-09-23] MEDS ORDERED: Famotidine/PF 20 mg/2ml Vial ONE (12:13)
[2020-09-23] MEDS ORDERED: Fentanyl 100 MCG/2 ML VIAL ONE ×3 (12:13→15:06)
[2020-09-23] MEDS ORDERED: SUGAMMADEX SODIUM 200 MG/2 ML VIAL ONE (13:33)
[2020-09-23] MEDS ORDERED: Ondansetron HCl/PF 4 MG/2 ML Vial IVP PRN (13:44)
[2020-09-23] MEDS ORDERED: Promethazine HCl 25 MG/ML VIAL IM PRN (13:44)
[2020-09-23] MEDS ORDERED: Promethazine HCl 25 MG/ML VIAL SLOW IVP PRN (13:44)
--- NOTE | 2020-09-23 15:49 | OP ---
DATE OF PROCEDURE: 09/23/2020 PROCEDURE PERFORMED: Right hip bipolar hemiarthroplasty. PREOPERATIVE DIAGNOSIS: Right femoral neck fracture. POSTOPERATIVE DIAGNOSIS: Right femoral neck fracture. COMPLICATIONS: None. ESTIMATED BLOOD LOSS: 150 mL. IMPLANTS: DePuy basic press-fit size 6 stem with a +5 femoral head and a 47 mm bipolar shell. INDICATIONS: Ms. Salazar is a 59-year-old female who has fractured her right femoral neck. She has been indicated for hemiarthroplasty of the hip to restore mobility and provide pain relief. Risks have been reviewed in detail. She has elected to proceed with the operation. DESCRIPTION OF PROCEDURE: Ms. Salazar was identified in the preoperative holding area. Her correct extremity was marked. She was carried to the operating room. She was positioned supine. General anesthesia was induced. A multidisciplinary time-out was performed. The right lower extremity was prepped and draped in sterile fashion. We began the procedure with a posterior approach to the hip. We dissected down through the subcutaneous tissues to the fascia, which was opened. We then exposed the short external rotators of the hip. These were subperiosteally divided from the proximal femur. We did preserve the piriformis insertion however. At this point, we performed a capsulotomy, and we then removed the broken femoral head and neck fragments. We performed a new osteotomy of the femoral neck. Next, we proceeded to prepare the femoral canal by entering the canal, lateralizing reaming and then broaching up to a size 6. A 6 gave good fit and fill. We at this point went ahead and trialed. A +5 length was good for stability and range of motion. We removed our trial components. We then thoroughly irrigated and then impacted our final components. Again, the hip was reduced and stability was checked. We thoroughly irrigated with copious lavage. We then closed. The short external rotators and capsule were repaired through drill holes in the trochanter with Ethibond suture. We then completed our layered closure. A sterile dressing was applied. The patient was taken to the recovery room in good condition at this point without complication. Job ID: [id number]
--- NOTE | 2020-09-23 16:01 | RAD ---
EXAM: 2 views of the right hip HISTORY: Right hip arthroplasty COMPARISON: 09/22/2020 FINDINGS: 2 views of the right hip shows the patient is status post right hip arthroplasty without pe rihardware lucency or fracture. Air in soft tissues and overlying skin evan are secondary recent surgery. IMPRESSION: Status post right hip arthroplasty without evidence of complication.
--- NOTE | 2020-09-23 16:02 | RAD ---
Exam: Single view of the pelvis HISTORY: Status post right hip arthroplasty COMPARISON: 09/22/2020 FINDINGS: A single view the pelvis shows the patient is status post right hip arthroplasty without pe rihardware lucency or fracture. Air in the soft tissues and overlying skin evan are from recent surgery. IMPRESSION: Status post right hip arthroplasty without evidence of complication.
--- NOTE | 2020-09-23 16:25 | PRG ---
DATE OF SERVICE: 09/23/2020 SUBJECTIVE: The patient was seen during morning rounds, awake, alert, in no distress. The patient voices no complaints or concerns at this time. The patient has been n.p.o. since midnight for surgery. The patient is about to go down to Day Stay. The patient reports no overnight events. The patient is hospital day #2 status post mechanical fall with a right femoral neck fracture. OBJECTIVE: VITAL SIGNS: Temperature 98.4, pulse 74, respirations 14, SpO2 of 98% on room air, blood pressure 111/70. GENERAL: Well-appearing middle-aged female, awake, alert, in no distress. HEENT: Unremarkable. RESPIRATORY: Good inspiratory and expiratory effort, respirations are even and nonlabored. CARDIAC: Regular rate, regular rhythm. EXTREMITIES: Neurovascularly intact x4. NEUROLOGIC: No focal deficits. SKIN: Warm, dry, normal color. LABORATORY DATA: WBC 6.4, RBC 3.88, hemoglobin 12.4, hematocrit 36.4, platelets 152. Sodium 135, potassium 3.8, chloride 106, BUN 9, creatinine 0.60, estimated GFR greater than 90, glucose 94, calcium 8.6, phosphorus 2.9, magnesium 1.8, AST 121, ALT 157, albumin 3.5. DIAGNOSTIC STUDIES: No new diagnostics to review today. ASSESSMENT: 1. Status post ground level fall. 2. Right femoral neck fracture. 3. Acute traumatic pain secondary to above. 4. History of bipolar disorder, schizophrenia, coronary artery disease, hypertension, CVA, and seizure disorder. PLAN: Surgical repair of right femoral neck fracture by Dr. Moy. Regular diet as tolerated postop. Continue pain control. PT and OT to evaluate and treat postop. Continue gastric prophylaxis and VTE prophylaxis with SCDs. Once the patient's hemoglobin is stable postop, the patient will be placed on chemical VTE prophylaxis. The patient was seen by Dr. Hooks. Job ID: [id number]
[2020-09-23] MEDS: CEFAZOLIN 2 GM in Premix Bag 1 BAG IVPB SCH (21:22)
--- NOTE | 2020-09-24 00:31 | PRG ---
DATE OF SERVICE: 09/23/2020 SUBJECTIVE: The patient was seen this evening during rounds. She is postoperative day #0, status post right hip bipolar hemiarthroplasty due to right femoral neck fracture. At the time of my evaluation, the patient was resting comfortably in bed and asleep with no signs of acute distress. Nursing reported no acute events. States that she is cooperative and directable. OBJECTIVE: VITAL SIGNS: Temperature 98.9, pulse 99, respirations 20, oxygen saturation 96% on room air, and blood pressure are 112/78. GENERAL: Well-appearing middle-aged female, lying in bed, resting comfortably and asleep with no signs of acute distress. ASSESSMENT: 1. Status post ground level fall. 2. Right femoral neck fracture, status post repair. 3. History of seizures, hypertension, bipolar disorder, schizophrenia, coronary artery disease, and cerebrovascular accident. PLAN: Continue regular diet. Start physical and occupational therapy tomorrow. Nursing to complete med rec and we will start the patient on her anti-seizure and psychiatric medications as soon as possible. 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 The patient will likely need placement at acute rehab facility over the next day or two. Job ID: [id number]
[2020-09-24] MEDS ORDERED: levETIRAcetam 500 MG TAB PO SCH (02:45)
[2020-09-24] MEDS: CEFAZOLIN 2 GM in Premix Bag 1 BAG IVPB SCH (05:25)
[2020-09-24] MEDS: Ibuprofen 600 MG TAB PO SCH ×2 (05:25→14:42)
[2020-09-24 07:10] LABS: #Basophils 0.1 thou/uL (0.0-0.2); #Eosinphils 0.3 thou/uL (0.0-0.7); #Lymphocytes 1.3 thou/uL (1.20-3.40); #Monocytes 0.6 thou/uL (0.11-0.59); #Neutrophils 6.2 thou/uL (1.40-6.50); %Basophils 0.8 % (0.0-1.0); %Eosinophils 3.1 % (0.0-10.0); %Lymphocytes 15.3 % (21.0-51.0); %Monocytes 7.4 % (0.0-10.0); %Neutrophils 73.5 % (42.0-75.0); Mean Corpuscular Hemoglobin 32.8 pg (27.0-31.0); Mean Corpuscular Volume 93.6 fL (78.0-98.0); Mean Platelet Volume 7.6 fL (7.4-10.4); Platelet Count 139 thou/uL (130-400); RBC Distribution Width 11.2 % (11.5-14.5); Red Blood Cell (RBC) Count 2.73 mill/uL (4.20-5.40); White Blood Cell (WBC) Count 8.4 thou/uL (4.8-10.8)
[2020-09-24 07:17] LABS: Anion Gap 9 mmol/L (10-20); BUN (Urea Nitrogen) 8 mg/dL (9.8-20.1); Calc. Creatinine Clearance 107 mL/min (70-130); Calcium 8.1 mg/dL (7.8-10.44); Carbon Dioxide 23 mmol/L (23-31); Chloride 102 mmol/L (98-107); Glucose 127 mg/dL (80-115); Magnesium 1.8 mg/dL (1.6-2.6); Phosphorus 1.8 mg/dL (2.3-4.7); Potassium 3.4 mmol/L (3.5-5.1); Sodium 131 mmol/L (136-145)
[2020-09-24] MEDS ORDERED: Magnesium Sulfate 3 GM in Sodium Chloride 0.9% 100 ML IVPB SCH (07:30)
[2020-09-24] MEDS ORDERED: Potassium Phosphate 30 MMOL in Sodium Chloride 0.9% 500 ML IVPB SCH (07:30)
[2020-09-24] MEDS ORDERED: Potassium Chloride 20 MEQ TAB PO SCH (07:30)
--- NOTE | 2020-09-24 07:34 | CT ---
PRELIMINARY REPORT/[facility]/EMERGENCY AFTER HOURS PROCEDURE EXAM: CT Head Without Intravenous Contrast. CLINICAL HISTORY: Pt fell and hit head on window sill. TECHNIQUE: Axial computed tomography images of the head/brain without intravenous contrast. COMPARISON: None provided. FINDINGS: BRAIN: No acute intraparenchymal hemorrhage. No mass lesion. No CT evidence for acute territorial infarct. N o midline shift or extra-axial collection. There is a tiny hyperdensity on the right which appears to be within the ventricle probably a small asymmetric area of choroid plexus. Conceivably, a minusc ule amount of posttraumatic subarachnoid blood could be present. VENTRICLES: No hydrocephalus. ORBITS: The orbits are unremarkable. SINUSES AND MASTOIDS: The paranasal sinuses and mastoid air cells are clear. SOFT TISSUES: No significant facial or scalp soft tissue swelling evident. No radiopaque foreign body is seen. BONES: No acute skull fracture. IMPRESSION: Tiny hyperdensity in the region of the trigone of the right lateral ventricle as discussed. Otherwis e unremarkable ELECTRONICALLY SIGNED BY: Itz Damon MD Sep 24, 2020 4:51:23 AM FURNISHINGS CONSERVATOR This report is intended for review by the ordering physician only, in accordance of law. If you recei ve this report in error, please call [facility] at [phone]. FINAL REPORT Final interpretation Head CT without contrast: 09/24/2020 COMPARISON: 09/22/2020. HISTORY: Fall, head trauma. FINDINGS: The imaged paranasal sinuses and mastoid air cells are well-aerated. There is no displaced calvarial fracture. No convincing evidence for intracranial hemorrhage. No midline shift or mass effect. IMPRESSION: No definitive intracranial hemorrhage. No displaced calvarial fracture. Agree with preliminary report provided by [facility]. Transcribed Date/Time: 09/24/2020 7:40 AM
[2020-09-24] MEDS ORDERED: Sodium Phosphate 30 MMOL in Sodium Chloride 0.9% 250 ML 250 ML IVPB SCH (08:00)
[2020-09-24] MEDS ORDERED: Potassium Phosphate 30 MMOL, Magnesium Sulfate 3 GM in Sodium Chloride 0.9% 250 ML 250 ML IVPB SCH (09:00)
[2020-09-24] MEDS: Gabapentin 100 MG CAP PO SCH ×3 (09:04→20:04)
[2020-09-24] MEDS: Docusate 100 MG CAP PO SCH ×2 (09:04→20:06)
--- NOTE | 2020-09-24 09:23 | RAD ---
RIGHT HIP 2 VIEWS: Date: 09/24/2020 HISTORY: Hemiarthroplasty. COMPARISON: Hip radiograph prior day. FINDINGS: Postoperative appearance right hip hemiarthroplasty. Expected postoperative gas and edema. IMPRESSION: Continued satisfactory postoperative appearance. POS: [facility]
[2020-09-24] MEDS: oxyCODONE 5 MG TAB PO PRN ×2 (09:46→16:58)
--- NOTE | 2020-09-24 13:59 | PDOC.GSPN ---
Surgery Progress Note: Subj - Subjective Narrative: Patient is a 59 F with a history of bipolar disorder, schizophrenia, seizure disorder, prior CVA, prior [place], who sustained a right femoral neck fracture following a ground level fall, POD#1 following right hip bipolar hemiarthroplasty. She did fall and hit her head last night. CT showed no definitive intracranial hemorrhage. She is emotionally labile this AM. She has complaint of pain and is asking about her home medications. She reports that the morphine made her see and hear things. It was discotinued this AM. She is tolerating regular diet. Surgery Progress Note: Obj - Vital signs Vital signs: Vital Signs - Most Recent Temp Pulse Resp BP Pulse Ox 98.2 F 102 H 16 113/69 94 L 09/24/20 11:03 09/24/20 11:03 09/24/20 11:03 09/24/20 11:03 09/24/20 11:03 - Physical Exam General: moderate distress Cardiovascular: regular rate and rhythm Respiratory: clear to auscultation, normal respiratory effort Abdomen: soft, non tender, nondistended Additional exam: Neuro: GCS 14 (E4, V4, M6) Surgery Progress Note: Results - Labs Result Diagrams: 09/25/20 05:16 09/25/20 05:16 Lab results: Laboratory Results - last 12 hr 09/24/20 09/24/20 06:15 06:15 WBC 8.4 RBC 2.73 L Hgb 9.0 L Hct 25.5 L MCV 93.6 MCH 32.8 H MCHC 35.0 RDW 11.2 L Plt Count 139 MPV 7.6 Neutrophils % 73.5 Lymphocytes % 15.3 L Monocytes % 7.4 Eosinophils % 3.1 Basophils % 0.8 Neutrophils # 6.2 Lymphocytes # 1.3 Monocytes # 0.6 H Eosinophils # 0.3 Basophils # 0.1 Sodium 131 L Potassium 3.4 L Chloride 102 Carbon Dioxide 23 Anion Gap 9 L BUN 8 L Creatinine 0.59 L Estimated GFR (MDRD) Greater than 90 Glucose 127 H Calcium 8.1 Phosphorus 1.8 L Magnesium 1.8 Surgery Progress Note: A/P - Plan Plan: Patient is a 59 F with a history of bipolar disorder, schizophrenia, seizure disorder, prior CVA, [place] who sustained a right femoral neck fracture following a ground level fall, POD#1 following right hip bipolar hemiarthroplasty. She fell and hit her head last night. CT showed no definitive intracranial hemorrhage. Pain control - Gabapentin, Ibuprofen, Flexeril PRN, Oxycodone PRN. Cannot give Tylenol due to allergy. Cannot give Tramadol due to history of seizure disorder Continue regular diet, Ensures Pull albert Encourage PT Working on completing med rec. Resume psych and anti-seizure medications once this is available. Work on placement for rehab Addendum - Attending - Attending Attestation Date/Time: 09/25/20 [id number] I personally evaluated the patient and discussed the management with Dr. [] I agree with the History, Examination, Assessment and Plan documented above with any addition or exceptions noted below.
[2020-09-24] MEDS ORDERED: Polyethylene Glycol 3350 17 GM Packet PO PRN (14:46)
[2020-09-24] MEDS ORDERED: Lorazepam 1 MG TAB PO PRN (14:46)
[2020-09-24] MEDS ORDERED: Albuterol Sulfate 2.5 mg/3 ml Neb NEB PRN (14:59)
[2020-09-24] MEDS: busPIRone HCl 10 MG TAB PO SCH ×2 (15:51→20:05)
[2020-09-24] MEDS: traZODone HCl 150 MG TAB PO SCH (20:02)
[2020-09-24] MEDS: lamoTRIgine 25 MG TAB PO SCH (20:04)
[2020-09-24] MEDS: levETIRAcetam 500 MG TAB PO SCH (20:05)
[2020-09-24] MEDS: Topiramate 25 MG TAB PO SCH (20:05)
[2020-09-24] MEDS: Benztropine 1 MG TAB PO SCH (20:05)
[2020-09-24] MEDS: chlorproMAZINE HCl 25 MG TAB PO SCH (20:11)
[2020-09-24] MEDS: Lorazepam 1 MG TAB PO PRN (22:34)
[2020-09-25 05:29] LABS: Hemoglobin 8.3 g/dL (12.0-16.0); Platelet Count 131 thou/uL (130-400)
[2020-09-25] MEDS: Levothyroxine Sodium 100 MCG TAB PO SCH (05:29)
[2020-09-25 05:51] LABS: Anion Gap 10 mmol/L (10-20); BUN (Urea Nitrogen) 6 mg/dL (9.8-20.1); Calc. Creatinine Clearance 120 mL/min (70-130); Calcium 8.3 mg/dL (7.8-10.44); Carbon Dioxide 25 mmol/L (23-31); Chloride 102 mmol/L (98-107); Glucose 114 mg/dL (80-115); Magnesium 1.9 mg/dL (1.6-2.6); Potassium 4.1 mmol/L (3.5-5.1); Sodium 133 mmol/L (136-145)
[2020-09-25] MEDS ORDERED: Linaclotide [Linzess] 290 MCG Capsule PO SCH (07:30)
[2020-09-25] MEDS: Aspirin 81 mg Enteric Coated Tablet PO SCH ×2 (08:55→19:50)
[2020-09-25] MEDS: Meloxicam 7.5 MG TAB PO SCH (08:55)
[2020-09-25] MEDS: lamoTRIgine 25 MG TAB PO SCH ×2 (08:56→20:31)
[2020-09-25] MEDS: levETIRAcetam 500 MG TAB PO SCH ×2 (08:56→19:51)
[2020-09-25] MEDS: busPIRone HCl 10 MG TAB PO SCH ×3 (08:56→19:50)
[2020-09-25] MEDS: Docusate 100 MG CAP PO SCH ×2 (08:57→19:51)
[2020-09-25] MEDS: chlorproMAZINE HCl 25 MG TAB PO SCH ×2 (08:57→19:51)
[2020-09-25] MEDS: Topiramate 25 MG TAB PO SCH ×2 (08:57→19:52)
[2020-09-25] MEDS: Gabapentin 100 MG CAP PO SCH ×3 (08:57→19:51)
[2020-09-25] MEDS ORDERED: Magnesium Sulfate 2 GM in Sodium Chloride 0.9% 100 ML IVPB SCH (09:00)
[2020-09-25] MEDS: Ascorbic Acid 500 mg Chewable Tablet PO SCH ×2 (09:00→16:45)
[2020-09-25] MEDS: Ferrous Sulfate 325 MG TAB PO SCH ×2 (09:00→16:45)
[2020-09-25] MEDS ORDERED: Lurasidone Hcl [Latuda] 60 MG Tablet PO SCH (09:00)
[2020-09-25] MEDS: Mometasone Furoate 30 PUFF 220 MCG INH SCH ×2 (10:54→19:44)
[2020-09-25] MEDS: oxyCODONE 5 MG TAB PO PRN ×2 (11:38→19:49)
--- NOTE | 2020-09-25 15:43 | PDOC.GSPN ---
Surgery Progress Note: Subj - Subjective Narrative: Patient is a 59 F with a history of bipolar disorder, schizophrenia, seizure disorder, prior CVA, prior [place], who sustained a right femoral neck fracture following a ground level fall, POD#2 following right hip bipolar hemiarthroplasty. She is doing well this AM. Med recs were obtained. Pain well controlled. Tolerating regular diet with ensures. She has not yet had a bowel movement. Mcginnis was pulled yesterday and she has been voiding without difficulty. She has been working with PT. Surgery Progress Note: Obj - Vital signs Vital signs: Vital Signs - Most Recent Temp Pulse Resp BP Pulse Ox 98.6 F 92 20 101/65 100 09/25/20 14:40 09/25/20 14:40 09/25/20 14:40 09/25/20 14:40 09/25/20 14:40 - Physical Exam General: no distress Cardiovascular: regular rate and rhythm Respiratory: clear to auscultation, normal respiratory effort Abdomen: soft, non tender, nondistended Surgery Progress Note: Results - Labs Result Diagrams: 09/25/20 05:16 09/25/20 05:16 Lab results: Laboratory Results - last 12 hr 09/25/20 09/25/20 05:16 05:16 Hgb 8.3 L Hct 23.7 L Plt Count 131 Sodium 133 L Potassium 4.1 Chloride 102 Carbon Dioxide 25 Anion Gap 10 BUN 6 L Creatinine 0.53 L Estimated GFR (MDRD) Greater than 90 Glucose 114 Calcium 8.3 Phosphorus 2.0 L Magnesium 1.9 Surgery Progress Note: A/P - Plan Plan: Patient is a 59 F with a history of bipolar disorder, schizophrenia, seizure disorder, prior CVA, [place] who sustained a right femoral neck fracture following a ground level fall, POD#2 following right hip bipolar hemiarthroplasty. Continue to monitor pain control - Gabapentin, Flexeril PRN, Oxycodone PRN. Cannot give Tylenol due to allergy. Cannot give Tramadol due to history of seizure disorder Continue regular diet, Ensures Encourage PT Work on placement for rehab Addendum - Attending - Attending Attestation Date/Time: 09/25/20 7548 I personally evaluated the patient and discussed the management with Dr. [] I agree with the History, Examination, Assessment and Plan documented above with any addition or exceptions noted below.
[2020-09-25] MEDS: Cyclobenzaprine 10 MG TAB PO PRN (16:45)
[2020-09-25] MEDS: Lorazepam 1 MG TAB PO PRN (19:49)
[2020-09-25] MEDS: traZODone HCl 150 MG TAB PO SCH (19:50)
[2020-09-25] MEDS: Benztropine 1 MG TAB PO SCH (19:51)
[2020-09-26 06:31] LABS: Hemoglobin 8.4 g/dL (12.0-16.0); Mean Corpuscular Hemoglobin 33.5 pg (27.0-31.0); Mean Corpuscular Volume 95.6 fL (78.0-98.0); Mean Platelet Volume 7.5 fL (7.4-10.4); Platelet Count 162 thou/uL (130-400); RBC Distribution Width 10.9 % (11.5-14.5); Red Blood Cell (RBC) Count 2.51 mill/uL (4.20-5.40); White Blood Cell (WBC) Count 7.1 thou/uL (4.8-10.8)
[2020-09-26] MEDS: Levothyroxine Sodium 100 MCG TAB PO SCH (06:52)
[2020-09-26 07:14] LABS: Anion Gap 10 mmol/L (10-20); BUN (Urea Nitrogen) 10 mg/dL (9.8-20.1); Calc. Creatinine Clearance 107 mL/min (70-130); Calcium 9.2 mg/dL (7.8-10.44); Carbon Dioxide 28 mmol/L (23-31); Chloride 98 mmol/L (98-107); Glucose 122 mg/dL (80-115); Magnesium 1.8 mg/dL (1.6-2.6); Phosphorus 3.4 mg/dL (2.3-4.7); Potassium 3.7 mmol/L (3.5-5.1); Sodium 132 mmol/L (136-145)
[2020-09-26] MEDS: levETIRAcetam 500 MG TAB PO SCH ×2 (09:37→21:10)
[2020-09-26] MEDS: Meloxicam 7.5 MG TAB PO SCH (09:37)
[2020-09-26] MEDS: Gabapentin 100 MG CAP PO SCH ×3 (09:38→21:11)
[2020-09-26] MEDS: Ascorbic Acid 500 mg Chewable Tablet PO SCH ×2 (09:38→16:39)
[2020-09-26] MEDS: Ferrous Sulfate 325 MG TAB PO SCH ×2 (09:38→16:39)
[2020-09-26] MEDS: Aspirin 81 mg Enteric Coated Tablet PO SCH ×2 (09:38→21:10)
[2020-09-26] MEDS: busPIRone HCl 10 MG TAB PO SCH ×3 (09:39→21:10)
[2020-09-26] MEDS: Docusate 100 MG CAP PO SCH ×2 (09:39→21:10)
[2020-09-26] MEDS: lamoTRIgine 25 MG TAB PO SCH ×2 (09:40→21:10)
[2020-09-26] MEDS: chlorproMAZINE HCl 25 MG TAB PO SCH ×2 (09:40→21:09)
[2020-09-26] MEDS: Topiramate 25 MG TAB PO SCH ×2 (09:40→21:10)
--- NOTE | 2020-09-26 14:31 | PDOC.GSPN ---
Surgery Progress Note: Subj - Subjective Narrative: Patient is a 59 F with a history of bipolar disorder, schizophrenia, seizure disorder, prior CVA, prior [place], who sustained a right femoral neck fracture following a ground level fall, POD#3 following right hip bipolar hemiarthroplasty. She is doing well this AM. Pain well controlled. Tolerating regular diet. She has not yet had a bowel movement. She was sitting up in chair this AM and has been working with PT. Surgery Progress Note: Obj - Vital signs Vital signs: Vital Signs - Most Recent Temp Pulse Resp BP Pulse Ox 99.1 F 81 18 93/59 L 95 09/26/20 11:50 09/26/20 11:50 09/26/20 11:50 09/26/20 13:47 09/26/20 11:50 - Physical Exam General: no distress Cardiovascular: regular rate and rhythm Respiratory: clear to auscultation, normal respiratory effort Abdomen: soft, non tender, nondistended Surgery Progress Note: Results - Labs Result Diagrams: 09/26/20 06:09 09/26/20 06:09 Lab results: Laboratory Results - last 12 hr 09/26/20 09/26/20 06:09 06:09 WBC 7.1 RBC 2.51 L Hgb 8.4 L Hct 24.0 L MCV 95.6 MCH 33.5 H MCHC 35.0 RDW 10.9 L Plt Count 162 MPV 7.5 Sodium 132 L Potassium 3.7 Chloride 98 Carbon Dioxide 28 Anion Gap 10 BUN 10 Creatinine 0.59 L Estimated GFR (MDRD) Greater than 90 Glucose 122 H Calcium 9.2 Phosphorus 3.4 Magnesium 1.8 Surgery Progress Note: A/P - Plan Plan: Patient is a 59 F with a history of bipolar disorder, schizophrenia, seizure disorder, prior CVA, [place] who sustained a right femoral neck fracture following a ground level fall, POD#3 following right hip bipolar hemiarthroplasty. Continue to monitor pain control - Gabapentin, Flexeril PRN, Oxycodone PRN. Cannot give Tylenol due to allergy. Cannot give Tramadol due to history of seizure disorder Continue regular diet, Ensures Add lactulose to bowel regimen Encourage PT MPOA obtained. Work on placement for rehab Addendum - Attending - Attending Attestation Date/Time: 09/29/20 5577 I personally evaluated the patient and discussed the management with [] I agree with the History, Examination, Assessment and Plan documented above with any addition or exceptions noted below.
[2020-09-26] MEDS: oxyCODONE 5 MG TAB PO PRN ×2 (16:42→22:01)
--- NOTE | 2020-09-26 17:20 | RAD ---
RIGHT HIP TWO VIEWS: 09/26/20 INDICATIONS: History of palpable pop after surgery, concern for right hip prosthesis. COMPARISON: Prior exam dated 09/24/20. IMPRESSION: Right hip endoprosthesis is unchanged in position. No acute fracture is evident. Surgical evan ove rlie the lateral aspect of the right hip. POS: [facility]
[2020-09-26] MEDS: Mometasone Furoate 30 PUFF 220 MCG INH SCH ×2 (19:38→19:40)
[2020-09-26] MEDS: traZODone HCl 150 MG TAB PO SCH (21:09)
[2020-09-26] MEDS: Benztropine 1 MG TAB PO SCH (21:10)
[2020-09-26] MEDS: Lorazepam 1 MG TAB PO PRN (22:01)
[2020-09-27] MEDS: Levothyroxine Sodium 100 MCG TAB PO SCH (06:32)
[2020-09-27] MEDS: levETIRAcetam 500 MG TAB PO SCH ×2 (08:33→20:51)
[2020-09-27] MEDS: Meloxicam 7.5 MG TAB PO SCH (08:33)
[2020-09-27] MEDS: Docusate 100 MG CAP PO SCH ×2 (08:33→20:31)
[2020-09-27] MEDS: Ferrous Sulfate 325 MG TAB PO SCH ×2 (08:33→16:17)
[2020-09-27] MEDS: Ascorbic Acid 500 mg Chewable Tablet PO SCH ×2 (08:34→16:17)
[2020-09-27] MEDS: chlorproMAZINE HCl 25 MG TAB PO SCH ×2 (08:34→20:50)
[2020-09-27] MEDS: Topiramate 25 MG TAB PO SCH ×2 (08:34→20:50)
[2020-09-27] MEDS: Gabapentin 100 MG CAP PO SCH ×3 (08:34→20:50)
[2020-09-27] MEDS: Aspirin 81 mg Enteric Coated Tablet PO SCH ×2 (08:34→20:50)
[2020-09-27] MEDS: busPIRone HCl 10 MG TAB PO SCH ×3 (08:37→20:50)
[2020-09-27] MEDS: lamoTRIgine 25 MG TAB PO SCH ×2 (08:38→20:50)
--- NOTE | 2020-09-27 11:41 | PRG ---
DATE OF SERVICE: 09/27/2020 SUBJECTIVE: Ms. Salazar is a 59-year-old female, postop day 4 from right hemiarthroplasty. The patient is stable and doing well. Resting comfortably in bed. Patient has restarted on all her home medications on Tuesday. The patient is tolerating a regular diet. She is sitting right up in the bed this morning. Has not worked with PT today. OBJECTIVE: VITAL SIGNS: Temp 98.3, pulse 78, respiratory rate 18, O2 is 96, blood pressure 92/61. GENERAL: No acute distress. Sitting right up in bed. CARDIAC: Regular rate and rhythm. LUNGS: Speaking full sentences. No accessory muscle use. ABDOMEN: Soft, nontender to palpation. EXTREMITIES: Lower extremity sensation intact bilaterally. ASSESSMENT: 1. Status post ground level fall. 2. Right femoral neck fracture, status post repair. 3. History of seizures, hypertension, bipolar, schizophrenia, coronary artery disease and cerebrovascular accident. PLAN: Continue regular diet. Case Management is working with patient on referral to SNF. The patient has been restarted on all her home medications. Pain is well controlled. The patient is tolerating a regular diet. The patient's shared services representative is at bedside this morning. The patient will be discussed with Dr. Hooks after dictation Job ID: [id number] [facility]
[2020-09-27] MEDS: oxyCODONE 5 MG TAB PO PRN (20:49)
[2020-09-27] MEDS: Lorazepam 1 MG TAB PO PRN (20:49)
[2020-09-27] MEDS: traZODone HCl 150 MG TAB PO SCH (20:50)
[2020-09-27] MEDS: Benztropine 1 MG TAB PO SCH (20:50)
[2020-09-28] MEDS: Levothyroxine Sodium 100 MCG TAB PO SCH (06:09)
[2020-09-28] MEDS: Aspirin 81 mg Enteric Coated Tablet PO SCH ×2 (08:37→20:03)
[2020-09-28] MEDS: Meloxicam 7.5 MG TAB PO SCH (08:37)
[2020-09-28] MEDS: Ferrous Sulfate 325 MG TAB PO SCH ×2 (08:37→17:19)
[2020-09-28] MEDS: levETIRAcetam 500 MG TAB PO SCH ×2 (08:37→20:05)
[2020-09-28] MEDS: Ascorbic Acid 500 mg Chewable Tablet PO SCH ×2 (08:37→17:20)
[2020-09-28] MEDS: Gabapentin 100 MG CAP PO SCH ×3 (08:38→20:04)
[2020-09-28] MEDS: Docusate 100 MG CAP PO SCH ×2 (08:39→20:04)
[2020-09-28] MEDS: chlorproMAZINE HCl 25 MG TAB PO SCH ×2 (08:39→20:05)
[2020-09-28] MEDS: Topiramate 25 MG TAB PO SCH ×2 (08:39→20:05)
[2020-09-28] MEDS: busPIRone HCl 10 MG TAB PO SCH ×3 (08:44→20:03)
[2020-09-28] MEDS: lamoTRIgine 25 MG TAB PO SCH ×2 (08:44→20:04)
--- NOTE | 2020-09-28 13:51 | PRG ---
DATE OF SERVICE: 09/28/2020 SUBJECTIVE: Ms. Salazar is a 59-year-old female patient, postop day #5 from right hemiarthroplasty. The patient is stable and doing well. The patient is tolerating regular diet and voiding spontaneously. OBJECTIVE: VITAL SIGNS: Temperature 98.3, pulse 78, respiratory rate 20, O2 saturation 93% on room air, blood pressure 105/70. GENERAL: In no acute distress, sitting upright in a chair, looking out the window. CARDIAC: Regular rate and rhythm. PULMONARY: Not using any respiratory accessory muscle use. Breathing comfortably. ABDOMEN: Soft, nontender. EXTREMITIES: Lower extremity sensation intact bilaterally. ASSESSMENT: 1. Status post ground level fall. 2. Right femoral neck fracture, status post repair. 3. Past medical history significant for seizure, hypertension, bipolar, schizophrenia, coronary artery disease, and cerebrovascular accident. PLAN: 1. We will continue regular diet, bowel regimen, and pain regimen. 2. Referral was sent to SNF, Case Management is not here today, will follow up tomorrow. 3. Pain is well controlled, tolerating regular diet. Job ID: [id number] [facility]
[2020-09-28] MEDS: oxyCODONE 5 MG TAB PO PRN (15:04)
[2020-09-28] MEDS: Mometasone Furoate 30 PUFF 220 MCG INH SCH (18:03)
[2020-09-28] MEDS: traZODone HCl 150 MG TAB PO SCH (20:03)
[2020-09-28] MEDS: Benztropine 1 MG TAB PO SCH (20:03)
[2020-09-28] MEDS: Lorazepam 1 MG TAB PO PRN (20:04)
[2020-09-29] MEDS: Levothyroxine Sodium 100 MCG TAB PO SCH (05:35)
[2020-09-29] MEDS: Topiramate 25 MG TAB PO SCH ×2 (10:11→20:43)
[2020-09-29] MEDS: Aspirin 81 mg Enteric Coated Tablet PO SCH ×2 (10:11→20:42)
[2020-09-29] MEDS: Ferrous Sulfate 325 MG TAB PO SCH ×2 (10:12→17:54)
[2020-09-29] MEDS: chlorproMAZINE HCl 25 MG TAB PO SCH ×2 (10:12→20:43)
[2020-09-29] MEDS: Docusate 100 MG CAP PO SCH ×2 (10:12→20:41)
[2020-09-29] MEDS: busPIRone HCl 10 MG TAB PO SCH ×3 (10:13→20:42)
[2020-09-29] MEDS: lamoTRIgine 25 MG TAB PO SCH ×2 (10:14→20:42)
[2020-09-29] MEDS: Meloxicam 7.5 MG TAB PO SCH (10:15)
[2020-09-29] MEDS: Gabapentin 100 MG CAP PO SCH ×3 (10:16→20:43)
[2020-09-29] MEDS: levETIRAcetam 500 MG TAB PO SCH ×2 (10:16→20:42)
[2020-09-29] MEDS: Ascorbic Acid 500 mg Chewable Tablet PO SCH ×2 (10:16→17:54)
--- NOTE | 2020-09-29 12:41 | PDOC.GSPN ---
Surgery Progress Note: Subj - Subjective Patient reports: diarrhea, still having pain, tolerating a regular diet Narrative: Ms. Sherri Salazar 59YOF with PMH of seizure, schitzophrenia, Bipolar 1, syncope, tobacco use and HTN hospital day 7, POD#6 s/p R hemiarthroplasty. No events or changes in status last night. Normal bowel movements, voids, and patient ate breakfast. Plan to discharge today SNF approved awaiting bed. Surgery Progress Note: Obj - Vital signs Vital signs: Vital Signs - Most Recent Temp Pulse Resp BP Pulse Ox 97.7 F 90 16 105/64 95 09/29/20 10:00 09/29/20 10:00 09/29/20 10:00 09/29/20 10:00 09/29/20 10:00 - Physical Exam General: no distress (sitting comfortably in bed), severe pain (patient reports 10/10 leg pain while lying comfortably in bed) ENT: normal mucosa Neck: trachea midline Cardiovascular: regular rate and rhythm Respiratory: clear to auscultation, breath sounds present Abdomen: soft, non tender Wound: dressing clean,dry,intact Surgery Progress Note: Results - Labs Result Diagrams: 09/26/20 06:09 09/26/20 06:09 - EKG Data Rate: normal Surgery Progress Note: A/P - Plan Plan: Ms. Sherri Salazar 59YOF with PMH of seizure, schizophrenia, Bipolar I, syncope, tobacco use and HTN hospital day 7, POD#6 s/p R hemiarthroplasty. Assessment: 1. s/p ground level fall 2. R femoral neck fx s/p repair 3. PMH: seizure, schizophrenia, syncope, bipolar I, HTN, tobacco Plan: 1. Continue regular diet, bowel regimen, pain regimen 2. Waiting for first available half-way bed. Addendum - Attending - Attending Attestation Date/Time: 09/30/20 1134 I personally evaluated the patient and discussed the management with Dr. [] I agree with the History, Examination, Assessment and Plan documented above with any addition or exceptions noted below.
[2020-09-29] MEDS: Mometasone Furoate 30 PUFF 220 MCG INH SCH (19:33)
[2020-09-29] MEDS: traZODone HCl 150 MG TAB PO SCH (20:42)
[2020-09-29] MEDS: Benztropine 1 MG TAB PO SCH (20:42)
[2020-09-30] MEDS: Levothyroxine Sodium 100 MCG TAB PO SCH (06:02)
[2020-09-30] MEDS: oxyCODONE 5 MG TAB PO PRN (09:28)
[2020-09-30] MEDS: Aspirin 81 mg Enteric Coated Tablet PO SCH (09:28)
[2020-09-30] MEDS: Meloxicam 7.5 MG TAB PO SCH (09:28)
[2020-09-30] MEDS: Ferrous Sulfate 325 MG TAB PO SCH ×2 (09:28→16:23)
[2020-09-30] MEDS: Topiramate 25 MG TAB PO SCH (09:29)
[2020-09-30] MEDS: Gabapentin 100 MG CAP PO SCH ×2 (09:29→16:24)
[2020-09-30] MEDS: busPIRone HCl 10 MG TAB PO SCH ×2 (09:29→16:23)
[2020-09-30] MEDS: levETIRAcetam 500 MG TAB PO SCH (09:29)
[2020-09-30] MEDS: chlorproMAZINE HCl 25 MG TAB PO SCH (09:30)
[2020-09-30] MEDS: Ascorbic Acid 500 mg Chewable Tablet PO SCH ×2 (09:30→16:24)
[2020-09-30] MEDS: Docusate 100 MG CAP PO SCH (09:31)
[2020-09-30] MEDS: lamoTRIgine 25 MG TAB PO SCH (10:40)
[2020-09-30 11:48] VITALS: TEMP 97.7
[2020-09-30 15:34] VITALS: BP 101/67
--- NOTE | 2020-09-30 15:35 | DIS ---
DATE OF ADMISSION: 09/22/2020 DATE OF DISCHARGE: 09/30/2020 This is Sissy Saleh NP dictating a report for Jac Hooks DO. DISCHARGE ATTENDING: Dr. Hooks. CONSULTS: Orthopedic Surgery, Dr. Moy. PROCEDURES: On 09/23/2020 right hip bipolar hemiarthroplasty by Dr. Moy. PRIMARY DIAGNOSES: Status post ground level fall, right femoral neck fracture, and acute traumatic pain secondary to injury. SECONDARY DIAGNOSES: Bipolar disorder, schizophrenia, coronary artery disease, hypertension, cerebrovascular accident, and seizure disorder. DISCHARGE MEDICATIONS: 1. Vitamin C 500 mg p.o. b.i.d. with meals for 30 days. 2. Aspirin 81 mg p.o. b.i.d. for 30 days. 3. Cogentin 1 mg p.o. at bedtime. 4. BuSpar 15 mg p.o. b.i.d. 5. Chlorpromazine 10 mg p.o. b.i.d. 6. Flexeril 10 mg p.o. 3 times a day p.r.n. muscle spasms. 7. Ferrous sulfate 325 mg p.o. b.i.d. with meals for 30 days. 8. Mometasone 1 puff daily. 9. Lamictal 50 mg p.o. b.i.d. 10. Keppra 1500 mg p.o. b.i.d. 11. Levothyroxine 100 mcg p.o. daily. 12. Lorazepam 1 mg p.o. daily p.r.n. anxiety. 13. Mobic 7.5 mg p.o. daily. 14. Omeprazole 20 mg p.o. daily. 15. MiraLAX as needed for constipation. 16. Topamax 50 mg p.o. b.i.d. 17. Trazodone 300 mg p.o. at bedtime. 18. Ventolin inhaler q.4 hours as needed. 19. Colace b.i.d. as needed. 20. Linzess 290 mcg p.o. daily. 21. Latuda 60 mg p.o. daily. No discontinued medications. HISTORY OF PRESENT ILLNESS AND HOSPITAL COURSE: This is a 59-year-old female who was ambulating outside when she tripped over a ledge of the door landing onto her right hip. The patient denied any loss of consciousness. The patient reported immediate right hip pain. The patient reported that she normally ambulates with a walker. The patient has right-sided deficits due to a previous CVA. The patient was evaluated in the emergency room to have a right femoral neck fracture in which Trauma Services was asked to admit the patient. The patient's pain was controlled pre and postop. The patient had multiple allergies and had to be placed on oxycodone for pain control. There was increase length of stay due to figuring out who was the legal medical power of ip technology transactions attorney. Palliative Care was consulted to help finding a medical power of ip technology transactions attorney. The patient was placed on aspirin for VTE prophylaxis. The patient worked with Physical Therapy during her hospital stay. The patient improved daily with physical therapy. On the day of discharge, she was able to ambulate 300 feet. The patient was eventually accepted to [facility] for continued rehab. On the day of discharge, the patient was examined by Dr. Hooks. Her exam was unremarkable including cardiopulmonary and GI exam. The patient was deemed stable for discharge to alf facility. DISPOSITION: Stable. DISCHARGE INSTRUCTIONS: 1. Location: [facility]. 2. Diet: Regular diet as tolerated, Ensure Enlive 3 times a day supplement. 3. Activity: Orthopedic limitations. Weightbearing as tolerated. 4. Follow up: Follow up with Orthopedic Surgery, Dr. Moy in 10-14 days. No need to follow up with Trauma Services. Please call for any questions. The patient is to follow up with her primary care physician next available appointment. Greater than 50% of the 30 minutes was used for discharge medications, instructions, and followup. Job ID: [id number] [facility]
== END 2020-09-30 18:21 | DRG 522 ==
LOC: ERS 10:01 → ERHOLD 11:56 → SURG A 16:08
PROVIDERS: ADMIT Surgery; ATTEND Surgery
PROC: 0SRR0JA Replacement of Right Hip Joint, Femoral Surface with Synthetic Substitute, Uncemented, Open Approach (ICD-10-PCS; principal; 2020-09-23)
DX: S72.031A Displaced midcervical fracture of right femur, initial encounter for closed fracture (principal); I69.951 Hemiplegia and hemiparesis following unspecified cerebrovascular disease affecting right dominant side; Z20.822 Contact with and (suspected) exposure to COVID-19; I10 Essential (primary) hypertension; B18.2 Chronic viral hepatitis C; F31.9 Bipolar disorder, unspecified; F41.9 Anxiety disorder, unspecified; F17.210 Nicotine dependence, cigarettes, uncomplicated; G40.909 Epilepsy, unspecified, not intractable, without status epilepticus; M19.90 Unspecified osteoarthritis, unspecified site; K21.9 Gastro-esophageal reflux disease without esophagitis; D64.9 Anemia, unspecified; E03.9 Hypothyroidism, unspecified; G47.00 Insomnia, unspecified; F20.9 Schizophrenia, unspecified; I25.10 Atherosclerotic heart disease of native coronary artery without angina pectoris; W19.XXXA Unspecified fall, initial encounter; Z88.0 Allergy status to penicillin; Z88.8 Allergy status to other drugs, medicaments and biological substances; Z90.49 Acquired absence of other specified parts of digestive tract; I25.2 Old myocardial infarction; Z90.710 Acquired absence of both cervix and uterus; Z79.82 Long term (current) use of aspirin; Z79.899 Other long term (current) drug therapy; Z79.890 Hormone replacement therapy
CPT/HCPCS: 36415; 70450; 71045; 72170; 80048; 80053; 83735; 84100; 85014; 85018; 85025; 85027; 85049; 85610; 85730; 87635; 93005; 96374; 96375; 96376; C1776; G0390; J0690; J1100; J1885; J2270; J2405; J2704; J2765; J3010; J3475; J3490; J7050; Q0161; Q0162; S0028; U0003; U0005

== ENCOUNTER 2020-11-04 00:02 | Emergency (ER) | payer MEDICARE, MEDICAID | END 2020-11-04 01:23 | disposition home or self-care (01) | LOC: ERS 00:02 | DX: S00.81XA Abrasion of other part of head, initial encounter (principal); M25.551 Pain in right hip; M54.2 Cervicalgia; E03.9 Hypothyroidism, unspecified; D64.9 Anemia, unspecified; G40.909 Epilepsy, unspecified, not intractable, without status epilepticus; G43.909 Migraine, unspecified, not intractable, without status migrainosus; G47.00 Insomnia, unspecified; I10 Essential (primary) hypertension; I25.2 Old myocardial infarction; J45.909 Unspecified asthma, uncomplicated; F17.210 Nicotine dependence, cigarettes, uncomplicated; Z86.73 Personal history of transient ischemic attack (TIA), and cerebral infarction without residual deficits; Z79.82 Long term (current) use of aspirin; Z79.899 Other long term (current) drug therapy; W06.XXXA Fall from bed, initial encounter | CPT/HCPCS: 70450; 72125 ==

== ENCOUNTER 2020-11-20 20:53 | Emergency (ER) | payer MEDICARE, MEDICAID | END 2020-11-20 22:45 | disposition home or self-care (01) | LOC: ERS 20:53 | DX: S01.01XA Laceration without foreign body of scalp, initial encounter (principal); S01.81XA Laceration without foreign body of other part of head, initial encounter; S40.011A Contusion of right shoulder, initial encounter; S80.212A Abrasion, left knee, initial encounter; S80.211A Abrasion, right knee, initial encounter; W10.9XXA Fall (on) (from) unspecified stairs and steps, initial encounter; I25.2 Old myocardial infarction; D64.9 Anemia, unspecified; G40.909 Epilepsy, unspecified, not intractable, without status epilepticus; I10 Essential (primary) hypertension; E03.9 Hypothyroidism, unspecified; G47.00 Insomnia, unspecified; J45.909 Unspecified asthma, uncomplicated; Z86.73 Personal history of transient ischemic attack (TIA), and cerebral infarction without residual deficits; F17.210 Nicotine dependence, cigarettes, uncomplicated; Z79.899 Other long term (current) drug therapy; Z79.82 Long term (current) use of aspirin | CPT/HCPCS: 70450 ==

== ENCOUNTER 2021-04-10 16:40 | Emergency (ER) | payer MEDICARE, MEDICAID ==
[2021-04-10] MEDS ORDERED: Clindamycin 150 MG CAP ONE (18:56)
== END 2021-04-10 18:55 | disposition home or self-care (01) ==
LOC: ERS 16:40
DX: H60.01 Abscess of right external ear (principal); I25.2 Old myocardial infarction; D64.9 Anemia, unspecified; I10 Essential (primary) hypertension; G40.909 Epilepsy, unspecified, not intractable, without status epilepticus; E03.9 Hypothyroidism, unspecified; J45.909 Unspecified asthma, uncomplicated; G43.909 Migraine, unspecified, not intractable, without status migrainosus; K21.9 Gastro-esophageal reflux disease without esophagitis; F17.210 Nicotine dependence, cigarettes, uncomplicated
CPT/HCPCS: 99282

== ENCOUNTER 2021-05-11 20:50 | Observation (INO) | payer MEDICARE, MEDICAID ==
[2021-05-11] MEDS ORDERED: Aspirin Chewable 81 MG TAB ONE (21:39)
[2021-05-11 22:17] LABS: #Eosinphils 0.3 thou/uL (0.0-0.7); #Lymphocytes 3.2 thou/uL (1.20-3.40); #Monocytes 0.5 thou/uL (0.11-0.59); #Neutrophils 3.4 thou/uL (1.40-6.50); %Basophils 0.5 % (0.0-1.0); %Eosinophils 3.8 % (0.0-10.0); %Lymphocytes 43.3 % (21.0-51.0); %Monocytes 6.3 % (0.0-10.0); %Neutrophils 46.2 % (42.0-75.0); Hemoglobin 12.1 g/dL (12.0-16.0); Mean Corpuscular HGB CONC 35.5 g/dL (32.0-36.0); Mean Corpuscular Hemoglobin 33.8 pg (27.0-31.0); Mean Corpuscular Volume 95.2 fL (78.0-98.0); Mean Platelet Volume 7.4 fL (7.4-10.4); Platelet Count 179 thou/uL (130-400); Red Blood Cell (RBC) Count 3.58 mill/uL (4.20-5.40); White Blood Cell (WBC) Count 7.3 thou/uL (4.8-10.8)
[2021-05-11 22:36] LABS: ALT (SGPT) 7 U/L (8-55); AST (SGOT) 12 U/L (5-34); Albumin 3.7 g/dL (3.4-4.8); Alkaline Phosphatase 52 U/L (40-110); Anion Gap 10 mmol/L (10-20); BUN (Urea Nitrogen) 10 mg/dL (9.8-20.1); Bilirubin, Total 0.3 mg/dL (0.2-1.2); CK (CPK) 46 U/L (29-168); Calc. Creatinine Clearance 0 mL/min (70-130); Calcium 9.8 mg/dL (7.8-10.44); Carbon Dioxide 27 mmol/L (23-31); Chloride 99 mmol/L (98-107); Globulin 2.5 g/dL (2.4-3.5); Glucose 102 mg/dL (80-115); Lipase 28 U/L (8-78); Potassium 3.7 mmol/L (3.5-5.1); Protein, Total 6.2 g/dL (5.8-8.1); Sodium 132 mmol/L (136-145)
[2021-05-12 01:48] VITALS: BMI 24.5
[2021-05-12] MEDS ORDERED: Ondansetron PF 4 MG/2 ML Vial IVP PRN (02:00)
[2021-05-12] MEDS ORDERED: Ondansetron ODT 4 MG TAB SL PRN (02:00)
[2021-05-12] MEDS ORDERED: Nitroglycerin 0.4 MG TAB (25 Tab Bottle) SL PRN (07:32)
[2021-05-12] MEDS ORDERED: Aspirin 325 MG TAB PO SCH (09:00)
[2021-05-12] MEDS ORDERED: levETIRAcetam 500 MG TAB PO SCH (12:00)
[2021-05-12] MEDS ORDERED: FLU VACC QS2021-22(6MOS UP)/PF 60 MCG/0.5 ML SYRINGE IM ONE (12:00)
[2021-05-12] MEDS ORDERED: lamoTRIgine 25 MG TAB PO SCH (12:00)
[2021-05-12 14:52] LABS: SARS-CoV-2 PCR by NAA Not Detected (NotDetected)
[2021-05-12] MEDS: Morphine 4 MG/ML VIAL SLOW IVP PRN ×2 (15:45→20:01)
[2021-05-12] MEDS: levETIRAcetam 500 MG TAB PO SCH (20:01)
[2021-05-12] MEDS: lamoTRIgine 25 MG TAB PO SCH (20:09)
[2021-05-12 22:35] LABS: Troponin I 0.036 ng/mL (< 0.028)
[2021-05-13] MEDS: Morphine 4 MG/ML VIAL SLOW IVP PRN ×2 (01:20→08:26)
[2021-05-13] MEDS: levETIRAcetam 500 MG TAB PO SCH (08:23)
[2021-05-13] MEDS: lamoTRIgine 25 MG TAB PO SCH (08:25)
[2021-05-13] MEDS ORDERED: Aspirin 325 mg Enteric Coated Tablet PO SCH (09:00)
[2021-05-13 10:03] LABS: Troponin I Less than 0.010 ng/mL (< 0.028)
[2021-05-13] MEDS ORDERED: Ketorolac Tromethamine 30 MG/ML VIAL IVP SCH (10:15)
[2021-05-13 11:38] VITALS: BP 106/58; TEMP 98.2
[2021-05-13] MEDS ORDERED: Ibuprofen 200 MG TAB PO SCH (17:00)
== END 2021-05-13 13:57 | disposition home or self-care (01) ==
LOC: ERS 20:50 → 2SW 05-12 00:03
PROVIDERS: ADMIT Student in an Organized Health Care Education/Training Program; ATTEND Internal Medicine
DX: R07.89 Other chest pain (principal); I25.2 Old myocardial infarction; I10 Essential (primary) hypertension; G40.909 Epilepsy, unspecified, not intractable, without status epilepticus; E87.1 Hypo-osmolality and hyponatremia; B18.2 Chronic viral hepatitis C; G47.00 Insomnia, unspecified; K21.9 Gastro-esophageal reflux disease without esophagitis; F17.210 Nicotine dependence, cigarettes, uncomplicated; E03.9 Hypothyroidism, unspecified; J45.909 Unspecified asthma, uncomplicated; G43.909 Migraine, unspecified, not intractable, without status migrainosus; I44.0 Atrioventricular block, first degree; F10.21 Alcohol dependence, in remission; Z86.73 Personal history of transient ischemic attack (TIA), and cerebral infarction without residual deficits; Z79.1 Long term (current) use of non-steroidal anti-inflammatories (NSAID); Z79.82 Long term (current) use of aspirin; Z79.899 Other long term (current) drug therapy; Z88.0 Allergy status to penicillin; Z88.6 Allergy status to analgesic agent; Z88.8 Allergy status to other drugs, medicaments and biological substances; Z20.822 Contact with and (suspected) exposure to COVID-19
CPT/HCPCS: 71045; 78451; 80053; 82550; 83690; 83880; 84484 ×4; 85025; 85379; 93005 ×2; 99285; A9500; U0003; U0005; 36415; 93010; 96374; 96375; 96376; G0378; J1885; J2270

== ENCOUNTER 2022-03-01 16:04 | Emergency (ER) | payer MEDICARE, MEDICAID ==
[2022-03-01] MEDS ORDERED: traMADol HCl 50 MG TAB ONE (16:41)
== END 2022-03-01 17:50 | disposition home or self-care (01) ==
LOC: ERS 16:04
DX: S42.035A Nondisplaced fracture of lateral end of left clavicle, initial encounter for closed fracture (principal); I25.2 Old myocardial infarction; D64.9 Anemia, unspecified; I10 Essential (primary) hypertension; E03.9 Hypothyroidism, unspecified; K21.9 Gastro-esophageal reflux disease without esophagitis; Z86.73 Personal history of transient ischemic attack (TIA), and cerebral infarction without residual deficits; F17.210 Nicotine dependence, cigarettes, uncomplicated; W18.39XA Other fall on same level, initial encounter
CPT/HCPCS: 93005

== ENCOUNTER 2022-04-29 16:20 | Emergency (ER) | payer MEDICARE, MEDICAID ==
[2022-04-29 16:58] LABS: #Eosinphils 0.4 thou/uL (0.0-0.7); #Lymphocytes 2.8 thou/uL (1.20-3.40); #Monocytes 0.3 thou/uL (0.11-0.59); #Neutrophils 3.4 thou/uL (1.40-6.50); %Basophils 0.6 % (0.0-1.0); %Eosinophils 6.1 % (0.0-10.0); %Lymphocytes 40.1 % (21.0-51.0); %Monocytes 4.6 % (0.0-10.0); %Neutrophils 48.6 % (42.0-75.0); Hemoglobin 11.4 g/dL (12.0-16.0); Mean Corpuscular Hemoglobin 32.7 pg (27.0-31.0); Mean Corpuscular Volume 99.1 fL (78.0-98.0); Mean Platelet Volume 6.8 fL (7.4-10.4); Platelet Count 221 thou/uL (130-400); RBC Distribution Width 11.3 % (11.5-14.5); Red Blood Cell (RBC) Count 3.49 mill/uL (4.20-5.40)
[2022-04-29 17:06] LABS: PTT 36.3 sec (22.9-36.1); Prothrombin Time 13.5 sec (12.0-14.7)
[2022-04-29 17:24] LABS: ALT (SGPT) 7 U/L (8-55); AST (SGOT) 13 U/L (5-34); Albumin 3.8 g/dL (3.4-4.8); Alkaline Phosphatase 64 U/L (40-110); Anion Gap 10 mmol/L (10-20); BUN (Urea Nitrogen) 13 mg/dL (9.8-20.1); Bilirubin, Total 0.2 mg/dL (0.2-1.2); CK (CPK) 49 U/L (29-168); Calc. Creatinine Clearance 0 mL/min (70-130); Calcium 9.4 mg/dL (7.8-10.44); Carbon Dioxide 26 mmol/L (23-31); Chloride 100 mmol/L (98-107); Estimated GFR 92; Globulin 2.6 g/dL (2.4-3.5); Glucose 108 mg/dL (80-115); Potassium 3.9 mmol/L (3.5-5.1); Protein, Total 6.4 g/dL (5.8-8.1); Sodium 132 mmol/L (136-145)
== END 2022-04-29 21:22 | disposition home or self-care (01) ==
LOC: ERS 16:20
DX: S09.90XA Unspecified injury of head, initial encounter (principal); S50.11XA Contusion of right forearm, initial encounter; S80.212A Abrasion, left knee, initial encounter; I10 Essential (primary) hypertension; E03.9 Hypothyroidism, unspecified; Z86.73 Personal history of transient ischemic attack (TIA), and cerebral infarction without residual deficits; F17.210 Nicotine dependence, cigarettes, uncomplicated; Z79.899 Other long term (current) drug therapy; W18.30XA Fall on same level, unspecified, initial encounter
CPT/HCPCS: 70450; 71045; 72125; 80053; 82550; 84484; 85025; 85610; 85730; 93005; 94760

== ENCOUNTER 2022-10-08 08:35 | Emergency (ER) | payer MEDICARE, MEDICAID ==
[2022-10-08] MEDS ORDERED: Morphine 4 MG/ML VIAL ONE (09:01)
[2022-10-08 09:15] LABS: #Eosinphils 0.1 thou/uL (0.0-0.7); #Lymphocytes 1.2 thou/uL (1.20-3.40); #Monocytes 0.8 thou/uL (0.11-0.59); #Neutrophils 6.5 thou/uL (1.40-6.50); %Eosinophils 0.9 % (0.0-10.0); %Lymphocytes 13.5 % (21.0-51.0); %Monocytes 9.8 % (0.0-10.0); %Neutrophils 75.8 % (42.0-75.0); Hemoglobin 11.9 g/dL (12.0-16.0); Mean Corpuscular HGB CONC 34.9 g/dL (32.0-36.0); Mean Corpuscular Hemoglobin 33.9 pg (27.0-31.0); Mean Corpuscular Volume 96.9 fl (78.0-98.0); Platelet Count 169 10x3/uL (130-400); RBC Distribution Width 11.1 % (11.5-14.5); White Blood Cell (WBC) Count 8.6 10x3/uL (4.8-10.8)
[2022-10-08 09:44] LABS: ALT (SGPT) 9 U/L (8-55); AST (SGOT) 13 U/L (5-34); Acetaminophen Less than 10.0 mcg/mL (10.0-30.0); Albumin 3.9 g/dL (3.4-4.8); Alcohol Less than 10 mg/dL (Less than 10); Alkaline Phosphatase 63 U/L (40-110); Anion Gap 10 mmol/L (10-20); BUN (Urea Nitrogen) 10 mg/dL (9.8-20.1); Bilirubin, Total 0.4 mg/dL (0.2-1.2); Calc. Creatinine Clearance 0 mL/min (70-130); Calcium 9.6 mg/dL (7.8-10.44); Carbon Dioxide 25 mmol/L (23-31); Chloride 102 mmol/L (98-107); Estimated GFR 99; Globulin 3.1 g/dL (2.4-3.5); Glucose 102 mg/dL (80-115); Potassium 3.6 mmol/L (3.5-5.1); Salicylate Less than 8.0 mg/dL (15.0-30.0); Sodium 133 mmol/L (136-145)
== END 2022-10-08 12:52 | disposition home or self-care (01) ==
LOC: ERS 08:35
DX: J18.9 Pneumonia, unspecified organism (principal); S50.312A Abrasion of left elbow, initial encounter; I10 Essential (primary) hypertension; F17.210 Nicotine dependence, cigarettes, uncomplicated; W18.09XA Striking against other object with subsequent fall, initial encounter
CPT/HCPCS: 36415; 70450; 71045; 72125; 80053; 80307; 84484; 85025; 96361; 96374; J2270

== ENCOUNTER 2023-02-26 21:20 | Inpatient (IN) | payer MEDICARE, MEDICAID ==
[~2023-02-26 21:20] MED LIST: Iopamidol-370 76% 500 ML MDV (1 ML CHARGE) ONE
[2023-02-26 22:18] LABS: Actual Bicarbonate (HCO3v) 21.1 mEq/L (22-28); Analyzer IN Cardio ER; Base Excess -2.5 mEq/L (-2.0 to +3.0); Calcium, Ionized (venous) 1.15 mmol/L (1.16-1.32); Chloride (VBG) 103 mmol/L (98-106); Hematocrit-VBG 36 % (36.0-47.0); Hemoglobin (Hb) 12.3 g/dL (11.7-16.0); Potassium (VBG) 3.21 mmol/L (3.70-5.30); Sodium 132.9 mmol/L (133-146); pH (venous) 7.426 (7.32-7.43)
[2023-02-26 22:20] LABS: #Monocytes 0.6 thou/uL (0.11-0.59); #Neutrophils 7.9 thou/uL (1.40-6.50); %Basophils 0.3 % (0.0-1.0); %Eosinophils 0.3 % (0.0-10.0); %Lymphocytes 6.2 % (21.0-51.0); %Monocytes 6.2 % (0.0-10.0); %Neutrophils 86.6 % (42.0-75.0); Hematocrit 33.2 % (36.0-47.0); Hemoglobin 11.3 g/dL (12.0-16.0); Mean Corpuscular Hemoglobin 32.2 pg (27.0-31.0); Mean Corpuscular Volume 94.6 fl (78.0-98.0); Mean Platelet Volume 9.4 fL (7.4-10.4); Platelet Count 145 10x3/uL (130-400); RBC Distribution Width 12.3 % (11.5-14.5); Red Blood Cell (RBC) Count 3.51 mill/uL (4.20-5.40); White Blood Cell (WBC) Count 9.1 10x3/uL (4.8-10.8)
[2023-02-26 22:36] LABS: INR-International Normal Ratio 1.1; PTT 35.1 sec (22.9-36.1); Prothrombin Time 14.4 sec (12.0-14.7)
[2023-02-26 22:37] LABS: Acetaminophen Less than 10 mcg/mL (10.0-30.0); Alcohol Less than 10.0 mg/dL (Less than 10); Lipase 17 U/L (8-78); Salicylate Less than 8.0 mg/dL (15.0-30.0)
[2023-02-26 22:45] LABS: ALT (SGPT) 11 U/L (8-55); AST (SGOT) 12 U/L (5-34); Albumin 3.8 g/dL (3.4-4.8); Alkaline Phosphatase 57 U/L (40-110); Anion Gap 10 mmol/L (10-20); BUN (Urea Nitrogen) 15 mg/dL (9.8-20.1); Bilirubin, Total 0.5 mg/dL (0.2-1.2); CK (CPK) 45 U/L (29-168); Calc. Creatinine Clearance 0 mL/min (70-130); Carbon Dioxide 24 mmol/L (23-31); Chloride 103 mmol/L (98-107); Estimated GFR 93; Globulin 2.2 g/dL (2.4-3.5); Glucose 111 mg/dL (80-115); Potassium 3.2 mmol/L (3.5-5.1); Sodium 134 mmol/L (136-145)
[2023-02-26] MEDS ORDERED: Cefepime 2 GM VIAL ONE (22:52)
[2023-02-26] MEDS ORDERED: Vancomycin 1 GM/200 ML (FROZEN) BAG ONE (23:28)
[2023-02-27 00:03] LABS: Bilirubin Negative (Negative); Blood, Urine Negative (Negative); CAUTI Indications for Culture Alt mental st,lethar; Clarity Clear (Clear); Glucose, Urine (Dipstick) Normal (Negative); Ketone, Urine Negative (Negative); Leukocyte 25 Leu/uL (Negative); Nitrite 2+ (Negative); Protein, Urine (Dipstick) Negative (Neg-Trace); RBC/HPF 0-3 HPF (0-3); Specific Gravity, Urine 1.029 (1.002-1.036); Squamous Epithelial 0-3 HPF (0-3); Urobilinogen Normal mg/dL (Less than 2)
[2023-02-27 00:15] LABS: Amphetamine Not Detected (NotDetected); Barbiturates Screen Not Detected (NotDetected); Benzodiazepine Screen Not Detected (NotDetected); Cocaine Metabolite Screen Not Detected (NotDetected); Methadone Not Detected (NotDetected); Methamphetamine Not Detected (NotDetected); Opiate Screen Not Detected (NotDetected); Oxycodone Screen Not Detected (NotDetected); Phencyclidine (PCP) Not Detected (NotDetected); THC/Cannabinoid Screen Not Detected (NotDetected); Tricyclic Screen Not Detected (NotDetected)
[2023-02-27 00:18] LABS: Bacteria/HPF 1+ HPF (None Seen)
[2023-02-27 00:19] LABS: Urine Culture Reflex No No
[2023-02-27 01:00] LABS: SARS-CoV-2 NAA Rapid Test Not Detected (NotDetected)
[2023-02-27] MEDS ORDERED: Acetaminophen 325 MG TAB PO PRN (02:16)
[2023-02-27] MEDS ORDERED: Ondansetron PF 4 MG/2 ML Vial IVP PRN (02:16)
[2023-02-27] MEDS ORDERED: Senokot S 8.6-50 MG TAB PO PRN (02:16)
[2023-02-27] MEDS ORDERED: Ondansetron ODT 4 MG TAB PO PRN (02:16)
[2023-02-27] MEDS ORDERED: D5 1/2 NS w/20 mEq KCL 1,000 ML IV SCH (02:30)
[2023-02-27 03:55] VITALS: BMI 25.2
[2023-02-27 05:13] LABS: #Monocytes 0.7 thou/uL (0.11-0.59); #Neutrophils 10.1 thou/uL (1.40-6.50); %Basophils 0.2 % (0.0-1.0); %Eosinophils 0.2 % (0.0-10.0); %Lymphocytes 5.1 % (21.0-51.0); %Monocytes 6.4 % (0.0-10.0); %Neutrophils 87.7 % (42.0-75.0); Hematocrit 37.7 % (36.0-47.0); Hemoglobin 12.2 g/dL (12.0-16.0); Mean Corpuscular HGB CONC 32.4 g/dL (32.0-36.0); Mean Corpuscular Hemoglobin 32.2 pg (27.0-31.0); Mean Platelet Volume 9.7 fL (7.4-10.4); Platelet Count 130 10x3/uL (130-400); RBC Distribution Width 12.3 % (11.5-14.5); Red Blood Cell (RBC) Count 3.79 mill/uL (4.20-5.40); White Blood Cell (WBC) Count 11.5 10x3/uL (4.8-10.8)
[2023-02-27 05:57] LABS: Anion Gap 11 mmol/L (10-20); BUN (Urea Nitrogen) 14 mg/dL (9.8-20.1); Calc. Creatinine Clearance 95 mL/min (70-130); Calcium 9.3 mg/dL (7.8-10.44); Carbon Dioxide 22 mmol/L (23-31); Chloride 105 mmol/L (98-107); Estimated GFR 98; Glucose 81 mg/dL (80-115); Potassium 3.3 mmol/L (3.5-5.1); Sodium 135 mmol/L (136-145)
[2023-02-27 06:40] LABS: Mean Corpuscular Volume 99.5 fl (78.0-98.0)
[2023-02-27] MEDS: cefTRIAXone\\ROCEPHIN 1 GM in Sodium Chloride 0.9% 100 ML IVPB SCH (09:26)
[2023-02-27] MEDS: Famotidine/PF 20 mg/2ml Vial SLOW IVP SCH ×2 (09:27→22:23)
[2023-02-27] MEDS: Famotidine 20 MG TAB PO SCH ×2 (10:39→22:22)
[2023-02-27] MEDS: busPIRone HCl 10 MG TAB PO SCH ×2 (15:42→22:21)
[2023-02-27] MEDS: traZODone HCl 150 MG TAB PO SCH (22:21)
[2023-02-27] MEDS: lamoTRIgine 25 MG TAB PO SCH (22:22)
[2023-02-27] MEDS: Topiramate 25 MG TAB PO SCH (22:22)
[2023-02-28] MEDS: Levothyroxine Sodium 100 MCG TAB PO SCH (05:51)
[2023-02-28] MEDS ORDERED: Non-Formulary Item 1 EACH (Linaclotide [Linzess] 290 MCG Capsule) PO SCH (07:30)
[2023-02-28] MEDS: cefTRIAXone\\ROCEPHIN 1 GM in Sodium Chloride 0.9% 100 ML IVPB SCH (08:52)
[2023-02-28] MEDS: Topiramate 25 MG TAB PO SCH ×2 (08:53→21:57)
[2023-02-28] MEDS: busPIRone HCl 10 MG TAB PO SCH ×3 (08:53→21:56)
[2023-02-28] MEDS: Famotidine 20 MG TAB PO SCH (08:53)
[2023-02-28] MEDS: lamoTRIgine 25 MG TAB PO SCH ×2 (08:53→22:37)
[2023-02-28] MEDS: Famotidine/PF 20 mg/2ml Vial SLOW IVP SCH (08:53)
[2023-02-28] MEDS ORDERED: Levothyroxine 150 MCG TAB PO SCH (09:00)
[2023-02-28] MEDS: Linaclotide [Linzess] 290 MCG Capsule PO SCH (12:27)
[2023-02-28] MEDS ORDERED: Electrolyte Replacement Protocol 1 EACH FS SCH (13:00)
[2023-02-28] MEDS ORDERED: NS 0.9% w/ 20 MEQ KCL 1,000 ML/1,000 ML BAG IV SCH (13:00)
[2023-02-28] MEDS: Saccharomyces boulardii 250 MG CAP PO SCH (14:59)
[2023-02-28] MEDS: Folic Acid 1 MG TAB PO SCH (21:57)
[2023-02-28] MEDS: Artificial Tear Sol 15 ML BOT EA EYE SCH (21:57)
[2023-02-28] MEDS: Cyanocobalamin (Vitamin B-12) 1,000 MCG TAB PO SCH (21:57)
[2023-02-28] MEDS: Senokot S 8.6-50 MG TAB PO SCH (21:57)
[2023-02-28] MEDS: Benztropine 1 MG TAB PO SCH (21:57)
[2023-02-28] MEDS: traZODone HCl 150 MG TAB PO SCH (22:07)
[2023-02-28] MEDS: chlorproMAZINE HCl 25 MG TAB PO SCH (22:37)
[2023-03-01 06:29] LABS: #Eosinphils 0.3 thou/uL (0.0-0.7); #Monocytes 0.5 thou/uL (0.11-0.59); #Neutrophils 3.1 thou/uL (1.40-6.50); %Basophils 0.7 % (0.0-1.0); %Eosinophils 4.7 % (0.0-10.0); %Lymphocytes 30.7 % (21.0-51.0); %Monocytes 9.2 % (0.0-10.0); %Neutrophils 54.5 % (42.0-75.0); Hematocrit 34.3 % (36.0-47.0); Hemoglobin 11.2 g/dL (12.0-16.0); Mean Corpuscular HGB CONC 32.7 g/dL (32.0-36.0); Mean Corpuscular Hemoglobin 31.9 pg (27.0-31.0); Mean Corpuscular Volume 97.7 fl (78.0-98.0); Mean Platelet Volume 10.1 fL (7.4-10.4); Platelet Count 140 10x3/uL (130-400); RBC Distribution Width 12.3 % (11.5-14.5); Red Blood Cell (RBC) Count 3.51 mill/uL (4.20-5.40); White Blood Cell (WBC) Count 5.7 10x3/uL (4.8-10.8)
[2023-03-01] MEDS: Levothyroxine Sodium 100 MCG TAB PO SCH (06:46)
[2023-03-01 06:50] LABS: Anion Gap 10 mmol/L (10-20); BUN (Urea Nitrogen) 7 mg/dL (9.8-20.1); Calc. Creatinine Clearance 105 mL/min (70-130); Calcium 9.5 mg/dL (7.8-10.44); Carbon Dioxide 22 mmol/L (23-31); Chloride 111 mmol/L (98-107); Estimated GFR 100; Glucose 94 mg/dL (80-115); Magnesium 1.9 mg/dL (1.6-2.6); Phosphorus 1.9 mg/dL (2.3-4.7); Potassium 3.8 mmol/L (3.5-5.1); Sodium 139 mmol/L (136-145)
[2023-03-01] MEDS ORDERED: Magnesium 2 GM/50 ML(in water) 2 GM in Premix Bag 1 BAG IVPB SCH (08:00)
[2023-03-01] MEDS: Linaclotide [Linzess] 290 MCG Capsule PO SCH (09:27)
[2023-03-01] MEDS: PHOS-NAK 1 PKT PACK PO SCH ×2 (09:34→12:11)
[2023-03-01] MEDS: chlorproMAZINE HCl 25 MG TAB PO SCH ×2 (09:35→22:47)
[2023-03-01] MEDS: busPIRone HCl 10 MG TAB PO SCH ×3 (09:35→22:47)
[2023-03-01] MEDS: Artificial Tear Sol 15 ML BOT EA EYE SCH ×2 (09:35→22:48)
[2023-03-01] MEDS: Aspirin 81 mg Enteric Coated Tablet PO SCH (09:35)
[2023-03-01] MEDS: Senokot S 8.6-50 MG TAB PO SCH ×2 (09:36→22:48)
[2023-03-01] MEDS: Topiramate 25 MG TAB PO SCH ×2 (09:36→22:46)
[2023-03-01] MEDS: lamoTRIgine 25 MG TAB PO SCH ×2 (09:36→22:46)
[2023-03-01] MEDS: cefTRIAXone\\ROCEPHIN 1 GM in Sodium Chloride 0.9% 100 ML IVPB SCH (10:54)
[2023-03-01] MEDS: Saccharomyces boulardii 250 MG CAP PO SCH (14:10)
[2023-03-01] MEDS: traZODone HCl 150 MG TAB PO SCH (21:00)
[2023-03-01] MEDS: Folic Acid 1 MG TAB PO SCH (22:47)
[2023-03-01] MEDS: Benztropine 1 MG TAB PO SCH (22:47)
[2023-03-01] MEDS: Cyanocobalamin (Vitamin B-12) 1,000 MCG TAB PO SCH (22:48)
[2023-03-02] MEDS: Levothyroxine Sodium 100 MCG TAB PO SCH (06:16)
[2023-03-02 06:23] LABS: #Eosinphils 0.3 thou/uL (0.0-0.7); #Monocytes 0.4 thou/uL (0.11-0.59); #Neutrophils 1.8 thou/uL (1.40-6.50); %Basophils 0.5 % (0.0-1.0); %Eosinophils 6.6 % (0.0-10.0); %Lymphocytes 42.9 % (21.0-51.0); %Monocytes 9.1 % (0.0-10.0); %Neutrophils 40.4 % (42.0-75.0); Hemoglobin 11.4 g/dL (12.0-16.0); Mean Corpuscular HGB CONC 33.5 g/dL (32.0-36.0); Mean Corpuscular Hemoglobin 31.4 pg (27.0-31.0); Mean Platelet Volume 9.9 fL (7.4-10.4); Platelet Count 170 10x3/uL (130-400); RBC Distribution Width 12.2 % (11.5-14.5); Red Blood Cell (RBC) Count 3.63 mill/uL (4.20-5.40); White Blood Cell (WBC) Count 4.4 10x3/uL (4.8-10.8)
[2023-03-02 06:25] LABS: Mean Corpuscular Volume 93.7 fl (78.0-98.0)
[2023-03-02 06:52] LABS: ALT (SGPT) 11 U/L (8-55); AST (SGOT) 17 U/L (5-34); Albumin 3.5 g/dL (3.4-4.8); Alkaline Phosphatase 51 U/L (40-110); Anion Gap 11 mmol/L (10-20); BUN (Urea Nitrogen) 7 mg/dL (9.8-20.1); Bilirubin, Total 0.3 mg/dL (0.2-1.2); Calc. Creatinine Clearance 92 mL/min (70-130); Calcium 9.5 mg/dL (7.8-10.44); Carbon Dioxide 25 mmol/L (23-31); Chloride 103 mmol/L (98-107); Estimated GFR 97; Globulin 2.9 g/dL (2.4-3.5); Glucose 89 mg/dL (80-115); Potassium 4.1 mmol/L (3.5-5.1); Protein, Total 6.4 g/dL (5.8-8.1); Sodium 135 mmol/L (136-145)
[2023-03-02] MEDS: Senokot S 8.6-50 MG TAB PO SCH ×2 (09:03→20:28)
[2023-03-02] MEDS: busPIRone HCl 10 MG TAB PO SCH ×3 (09:03→20:29)
[2023-03-02] MEDS: Aspirin 81 mg Enteric Coated Tablet PO SCH (09:03)
[2023-03-02] MEDS: lamoTRIgine 25 MG TAB PO SCH ×2 (09:04→20:28)
[2023-03-02] MEDS: cefTRIAXone\\ROCEPHIN 1 GM in Sodium Chloride 0.9% 100 ML IVPB SCH (09:04)
[2023-03-02] MEDS: Topiramate 25 MG TAB PO SCH ×2 (09:04→20:28)
[2023-03-02] MEDS: chlorproMAZINE HCl 25 MG TAB PO SCH ×2 (09:04→20:28)
[2023-03-02] MEDS: Artificial Tear Sol 15 ML BOT EA EYE SCH ×2 (09:05→20:31)
[2023-03-02] MEDS: Linaclotide [Linzess] 290 MCG Capsule PO SCH (09:05)
[2023-03-02] MEDS: Saccharomyces boulardii 250 MG CAP PO SCH (15:00)
[2023-03-02] MEDS: Folic Acid 1 MG TAB PO SCH (20:28)
[2023-03-02] MEDS: traZODone HCl 150 MG TAB PO SCH (20:28)
[2023-03-02] MEDS: Cyanocobalamin (Vitamin B-12) 1,000 MCG TAB PO SCH (20:28)
[2023-03-02] MEDS: Benztropine 1 MG TAB PO SCH (20:28)
[2023-03-03] MEDS: Levothyroxine Sodium 100 MCG TAB PO SCH (06:05)
[2023-03-03 07:37] LABS: #Eosinphils 0.3 thou/uL (0.0-0.7); #Monocytes 0.4 thou/uL (0.11-0.59); #Neutrophils 2.5 thou/uL (1.40-6.50); %Basophils 0.6 % (0.0-1.0); %Eosinophils 6.2 % (0.0-10.0); %Lymphocytes 37.1 % (21.0-51.0); %Monocytes 7.9 % (0.0-10.0); %Neutrophils 47.8 % (42.0-75.0); Hematocrit 35.3 % (36.0-47.0); Mean Corpuscular Hemoglobin 31.7 pg (27.0-31.0); Mean Corpuscular Volume 93.1 fl (78.0-98.0); Mean Platelet Volume 9.7 fL (7.4-10.4); Platelet Count 197 10x3/uL (130-400); RBC Distribution Width 12.1 % (11.5-14.5); Red Blood Cell (RBC) Count 3.79 mill/uL (4.20-5.40); White Blood Cell (WBC) Count 5.3 10x3/uL (4.8-10.8)
[2023-03-03 08:06] LABS: ALT (SGPT) 12 U/L (8-55); AST (SGOT) 17 U/L (5-34); Albumin 3.7 g/dL (3.4-4.8); Alkaline Phosphatase 54 U/L (40-110); Anion Gap 13 mmol/L (10-20); BUN (Urea Nitrogen) 6 mg/dL (9.8-20.1); Bilirubin, Total 0.2 mg/dL (0.2-1.2); Calc. Creatinine Clearance 92 mL/min (70-130); Calcium 9.8 mg/dL (7.8-10.44); Carbon Dioxide 25 mmol/L (23-31); Chloride 102 mmol/L (98-107); Estimated GFR 97; Glucose 98 mg/dL (80-115); Potassium 3.9 mmol/L (3.5-5.1); Protein, Total 6.7 g/dL (5.8-8.1); Sodium 136 mmol/L (136-145)
[2023-03-03] MEDS: Linaclotide [Linzess] 290 MCG Capsule PO SCH (08:37)
[2023-03-03] MEDS: Artificial Tear Sol 15 ML BOT EA EYE SCH ×2 (08:37→20:07)
[2023-03-03] MEDS: Topiramate 25 MG TAB PO SCH ×2 (08:37→20:06)
[2023-03-03] MEDS: Aspirin 81 mg Enteric Coated Tablet PO SCH (08:38)
[2023-03-03] MEDS: lamoTRIgine 25 MG TAB PO SCH ×2 (08:38→20:07)
[2023-03-03] MEDS: cefTRIAXone\\ROCEPHIN 1 GM in Sodium Chloride 0.9% 100 ML IVPB SCH (08:38)
[2023-03-03] MEDS: chlorproMAZINE HCl 25 MG TAB PO SCH ×2 (08:38→20:07)
[2023-03-03] MEDS: busPIRone HCl 10 MG TAB PO SCH ×3 (08:38→20:06)
[2023-03-03] MEDS: Senokot S 8.6-50 MG TAB PO SCH ×2 (08:39→20:08)
[2023-03-03] MEDS: Saccharomyces boulardii 250 MG CAP PO SCH (14:57)
[2023-03-03] MEDS: traZODone HCl 150 MG TAB PO SCH (20:06)
[2023-03-03] MEDS: Cyanocobalamin (Vitamin B-12) 1,000 MCG TAB PO SCH (20:07)
[2023-03-03] MEDS: Benztropine 1 MG TAB PO SCH (20:07)
[2023-03-03] MEDS: Folic Acid 1 MG TAB PO SCH (20:07)
[2023-03-04] MEDS: Levothyroxine Sodium 100 MCG TAB PO SCH (06:18)
[2023-03-04 06:24] LABS: #Basophils 0.1 thou/uL (0.0-0.2); #Eosinphils 0.4 thou/uL (0.0-0.7); #Monocytes 0.4 thou/uL (0.11-0.59); #Neutrophils 1.8 thou/uL (1.40-6.50); %Basophils 0.9 % (0.0-1.0); %Eosinophils 7.2 % (0.0-10.0); %Neutrophils 32.3 % (42.0-75.0); Hematocrit 37.3 % (36.0-47.0); Hemoglobin 12.7 g/dL (12.0-16.0); Mean Corpuscular Hemoglobin 31.8 pg (27.0-31.0); Mean Corpuscular Volume 93.5 fl (78.0-98.0); Mean Platelet Volume 9.8 fL (7.4-10.4); Platelet Count 237 10x3/uL (130-400); Red Blood Cell (RBC) Count 3.99 mill/uL (4.20-5.40); White Blood Cell (WBC) Count 5.4 10x3/uL (4.8-10.8)
[2023-03-04 06:52] LABS: ALT (SGPT) 14 U/L (8-55); AST (SGOT) 20 U/L (5-34); Alkaline Phosphatase 57 U/L (40-110); Anion Gap 13 mmol/L (10-20); BUN (Urea Nitrogen) 6 mg/dL (9.8-20.1); Bilirubin, Total 0.3 mg/dL (0.2-1.2); Calc. Creatinine Clearance 84 mL/min (70-130); Calcium 10.6 mg/dL (7.8-10.44); Carbon Dioxide 23 mmol/L (23-31); Chloride 103 mmol/L (98-107); Estimated GFR 87; Globulin 3.6 g/dL (2.4-3.5); Glucose 92 mg/dL (80-115); Potassium 3.9 mmol/L (3.5-5.1); Protein, Total 7.6 g/dL (5.8-8.1); Sodium 135 mmol/L (136-145)
[2023-03-04] MEDS: Senokot S 8.6-50 MG TAB PO SCH ×2 (09:36→21:34)
[2023-03-04] MEDS: Aspirin 81 mg Enteric Coated Tablet PO SCH (09:36)
[2023-03-04] MEDS: Topiramate 25 MG TAB PO SCH ×2 (09:36→21:33)
[2023-03-04] MEDS: busPIRone HCl 10 MG TAB PO SCH ×3 (09:37→21:33)
[2023-03-04] MEDS: Linaclotide [Linzess] 290 MCG Capsule PO SCH (09:37)
[2023-03-04] MEDS: Artificial Tear Sol 15 ML BOT EA EYE SCH ×2 (09:37→21:33)
[2023-03-04] MEDS: lamoTRIgine 25 MG TAB PO SCH ×2 (09:38→21:34)
[2023-03-04] MEDS: cefTRIAXone\\ROCEPHIN 1 GM in Sodium Chloride 0.9% 100 ML IVPB SCH (09:38)
[2023-03-04] MEDS: chlorproMAZINE HCl 25 MG TAB PO SCH ×2 (09:38→21:34)
[2023-03-04] MEDS: Saccharomyces boulardii 250 MG CAP PO SCH (14:42)
[2023-03-04] MEDS: Benztropine 1 MG TAB PO SCH (21:33)
[2023-03-04] MEDS: Cyanocobalamin (Vitamin B-12) 1,000 MCG TAB PO SCH (21:33)
[2023-03-04] MEDS: Folic Acid 1 MG TAB PO SCH (21:33)
[2023-03-04] MEDS: traZODone HCl 150 MG TAB PO SCH (21:34)
[2023-03-05] MEDS: Levothyroxine Sodium 100 MCG TAB PO SCH (05:42)
[2023-03-05] MEDS: Linaclotide [Linzess] 290 MCG Capsule PO SCH (07:00)
[2023-03-05] MEDS: Aspirin 81 mg Enteric Coated Tablet PO SCH (09:09)
[2023-03-05] MEDS: busPIRone HCl 10 MG TAB PO SCH ×3 (09:10→21:05)
[2023-03-05] MEDS: Artificial Tear Sol 15 ML BOT EA EYE SCH ×2 (09:10→21:06)
[2023-03-05] MEDS: lamoTRIgine 25 MG TAB PO SCH ×2 (09:10→21:05)
[2023-03-05] MEDS: Topiramate 25 MG TAB PO SCH ×2 (09:10→21:06)
[2023-03-05] MEDS: chlorproMAZINE HCl 25 MG TAB PO SCH ×2 (09:10→21:05)
[2023-03-05] MEDS: cefTRIAXone\\ROCEPHIN 1 GM in Sodium Chloride 0.9% 100 ML IVPB SCH (09:10)
[2023-03-05] MEDS: Senokot S 8.6-50 MG TAB PO SCH ×2 (09:10→21:06)
[2023-03-05] MEDS: Saccharomyces boulardii 250 MG CAP PO SCH (15:49)
[2023-03-05] MEDS: Cyanocobalamin (Vitamin B-12) 1,000 MCG TAB PO SCH (21:05)
[2023-03-05] MEDS: Folic Acid 1 MG TAB PO SCH (21:06)
[2023-03-05] MEDS: Benztropine 1 MG TAB PO SCH (21:06)
[2023-03-05] MEDS: traZODone HCl 150 MG TAB PO SCH (21:06)
[2023-03-05] MEDS ORDERED: Calcium Carbonate 500 MG ChewTAB PO PRN (21:19)
[2023-03-06 06:34] LABS: #Eosinphils 0.6 thou/uL (0.0-0.7); #Monocytes 0.4 thou/uL (0.11-0.59); #Neutrophils 2.5 thou/uL (1.40-6.50); %Basophils 0.6 % (0.0-1.0); %Eosinophils 8.2 % (0.0-10.0); %Lymphocytes 46.8 % (21.0-51.0); %Monocytes 5.8 % (0.0-10.0); %Neutrophils 37.9 % (42.0-75.0); Hematocrit 36.9 % (36.0-47.0); Hemoglobin 12.7 g/dL (12.0-16.0); Mean Corpuscular HGB CONC 34.4 g/dL (32.0-36.0); Mean Corpuscular Hemoglobin 31.7 pg (27.0-31.0); Mean Platelet Volume 9.4 fL (7.4-10.4); Platelet Count 260 10x3/uL (130-400); RBC Distribution Width 11.9 % (11.5-14.5); Red Blood Cell (RBC) Count 4.01 mill/uL (4.20-5.40); White Blood Cell (WBC) Count 6.7 10x3/uL (4.8-10.8)
[2023-03-06] MEDS: Linaclotide [Linzess] 290 MCG Capsule PO SCH (06:42)
[2023-03-06] MEDS: Levothyroxine Sodium 100 MCG TAB PO SCH (06:42)
[2023-03-06 07:01] LABS: Anion Gap 11 mmol/L (10-20); BUN (Urea Nitrogen) 9 mg/dL (9.8-20.1); Calc. Creatinine Clearance 95 mL/min (70-130); Calcium 10.3 mg/dL (7.8-10.44); Carbon Dioxide 25 mmol/L (23-31); Chloride 101 mmol/L (98-107); Estimated GFR 98; Glucose 91 mg/dL (80-115); Potassium 4.1 mmol/L (3.5-5.1); Sodium 133 mmol/L (136-145)
[2023-03-06] MEDS: busPIRone HCl 10 MG TAB PO SCH ×2 (09:06→13:59)
[2023-03-06] MEDS: chlorproMAZINE HCl 25 MG TAB PO SCH (09:06)
[2023-03-06] MEDS: Topiramate 25 MG TAB PO SCH (09:06)
[2023-03-06] MEDS: Senokot S 8.6-50 MG TAB PO SCH (09:06)
[2023-03-06] MEDS: Artificial Tear Sol 15 ML BOT EA EYE SCH (09:06)
[2023-03-06] MEDS: Aspirin 81 mg Enteric Coated Tablet PO SCH (09:06)
[2023-03-06] MEDS: lamoTRIgine 25 MG TAB PO SCH (09:07)
[2023-03-06] MEDS: cefTRIAXone\\ROCEPHIN 1 GM in Sodium Chloride 0.9% 100 ML IVPB SCH (09:11)
[2023-03-06] MEDS: Saccharomyces boulardii 250 MG CAP PO SCH (13:59)
[2023-03-06 15:56] VITALS: BP 96/58; TEMP 98.1
== END 2023-03-06 19:09 | DRG 871 ==
LOC: ERS 21:20 → 2NO 02-27 00:34 → OBSVTOIN 02-27 10:49 → T4-A 02-27 11:25 → 2NO 02-27 11:42 → T4-A 02-27 13:03
PROVIDERS: ADMIT Student in an Organized Health Care Education/Training Program; ATTEND Internal Medicine
PROC: 4A043R1 Measurement of Venous Saturation, Peripheral, Percutaneous Approach (ICD-10-PCS; principal; 2023-02-27)
PROC: 3E03329 Introduction of Other Anti-infective into Peripheral Vein, Percutaneous Approach (ICD-10-PCS; 2023-02-27)
DX: A41.51 Sepsis due to Escherichia coli [E. coli] (principal); G93.41 Metabolic encephalopathy; N39.0 Urinary tract infection, site not specified; E87.1 Hypo-osmolality and hyponatremia; K21.9 Gastro-esophageal reflux disease without esophagitis; I10 Essential (primary) hypertension; I25.10 Atherosclerotic heart disease of native coronary artery without angina pectoris; J45.909 Unspecified asthma, uncomplicated; F41.9 Anxiety disorder, unspecified; F20.9 Schizophrenia, unspecified; D64.9 Anemia, unspecified; G40.909 Epilepsy, unspecified, not intractable, without status epilepticus; E03.9 Hypothyroidism, unspecified; G47.00 Insomnia, unspecified; G43.909 Migraine, unspecified, not intractable, without status migrainosus; R65.20 Severe sepsis without septic shock; E87.6 Hypokalemia; Z20.822 Contact with and (suspected) exposure to COVID-19; Z79.890 Hormone replacement therapy; Z79.899 Other long term (current) drug therapy; Z79.82 Long term (current) use of aspirin; Z88.0 Allergy status to penicillin; Z88.8 Allergy status to other drugs, medicaments and biological substances; Z86.73 Personal history of transient ischemic attack (TIA), and cerebral infarction without residual deficits; Z90.710 Acquired absence of both cervix and uterus; Z90.49 Acquired absence of other specified parts of digestive tract; I25.2 Old myocardial infarction
CPT/HCPCS: 36415; 51701; 70450; 71045; 74177; 80048; 80053; 80306; 80307; 81001; 82550; 82805; 83605; 83690; 83735; 83880; 84100; 84484; 85025; 85610; 85730; 87040; 87086; 87149; 87186; 93005; 96365; 96367; 96375; G0378; J0692; J0696; J3370-JW; J3475; J3480; J3490; Q0161; Q9967; S0028